=== PATIENT | male | born 1980 | race Hispanic/Latino ===

== ENCOUNTER 2018-06-07 16:48 | Inpatient (IN) | payer SELFPAY ==
[2018-06-07] MEDS ORDERED: MORPHINE 4 MG/ML SYR ONE (17:50)
[2018-06-07] MEDS ORDERED: ONDANSETRON 4 MG/2 ML VIAL ONE (17:50)
[2018-06-07 17:51] LABS: Absolute Lymphocytes (CBC) 2.3 K/uL (0.7-4.9); Absolute Monocytes 0.6 K/uL (0.1-1.3); Absolute Neutrophil 4.5 K/uL (1.8-8.0); Basophils % 0.9 % (0-1.3); Eosinophils % 3.2 % (0-4.4); Lymphocytes % 29.6 % (15.3-44.8); MCH 31.6 pg (27.0-35.0); MPV 8.1 fL (7.6-11.3); Monocytes % 8.1 % (3.3-12.3); RBC Red Blood Cell Count 5.22 M/uL (4.33-5.43)
[2018-06-07 18:11] LABS: ALT/SGPT 40 U/L (12-78); AST/SGOT 33 U/L (15-37); Alkaline Phosphatase 75 U/L (45-117); Amylase Level 46 U/L (25-115); BUN Blood Urea Nitrogen 19 mg/dL (7-18); Bicarbonate 28 mmol/L (21-32); Bilirubin Direct < 0.1 mg/dL (0-0.2); Bilirubin Total 0.4 mg/dL (0.2-1.0); Glucose Level 90 mg/dL (74-106); Lipase 96 U/L (73-393); Potassium 3.9 mmol/L (3.5-5.1); Protein, Total 7.9 g/dL (6.4-8.2); Sodium Level 135 mmol/L (136-145)
--- NOTE | 2018-06-07 18:40 | RAD REPORT ---
EXAM DESCRIPTION: CTAbdomen Pelvis W Contrast - 06/07/2018 6:26 pm CLINICAL HISTORY: Abdominal pain. lower abdominal pain COMPARISON: <Comparisons> TECHNIQUE: Biphasic CT imaging of the abdomen and pelvis was performed with 100 ml non-ionic IV cont rast. All CT scans are performed using dose optimization technique as appropriate and may include automated exposure control or mA/KV adjustment according to patient size. FINDINGS: The lung bases are clear. The liver demonstrates diffuse fatty infiltration. The spleen, pancreas, adrenal glands and kidneys a re within normal limits. No bowel obstruction, free air, free fluid or abscess. Few mildly prominent small bowel loops are pre sent in the central abdomen. Appendectomy. No evidence of significant lymphadenopathy. Chronic bilateral spondylolysis at L5-S1. IMPRESSION: Mildly prominent small bowel loops are seen in the central abdomen. Findings probably ar e related to enteritis. However, as early mechanical small-bowel obstruction can have a similar appea shreya, a follow-up study would be recommended if patient's symptomology persists or progresses. Fatty liver.
[2018-06-07 19:33] LABS: Urine Bacteria <20 /HPF (NONE SEEN); Urine Culture Reflex Order NOT NEEDED; Urine RBC <5 /HPF (NONE SEEN)
[2018-06-07 20:03] LABS: Urine Blood NEGATIVE (NEG); Urine Glucose NEGATIVE (NEG); Urine Protein NEGATIVE (NEG); Urine Specific Gravity 1.015 (1.005-1.030)
--- NOTE | 2018-06-07 20:39 | EDPHYS ---
Physician Documentation [facility] Name: Adrian Huffman Age: 38 yrs Sex: Male : 1980 Arrival Date: 06/07/2018 Time: 16:51 Bed 17 Private MD: None, None ED Physician Michel Alejandre HPI: 06/07 17:10 This 38 yrs old Male presents to ER via Ambulatory with complaints of jmm Abdominal Pain. 17:10 The patient presents with abdominal pain. Onset: The symptoms/episode began/occurred jmm gradually, 1 day(s) ago. The symptoms radiate to. Associated signs and symptoms: Pertinent negatives: diarrhea, vomiting. The symptoms are described as achy, sharp. This is a 38 year old male with no chronic medical conditions that presents to the ED with periumbilical abdominal pain beginning last night. Patient denies vomiting or diarrhea but states he is nauseous. Patient denies fever, recent travel, or recent antibiotics use. Surgical hx of appendicitis. . Historical: - Allergies: 17:06 NKA; iw - Home Meds: 17:06 None [Active]; iw - PMHx: 17:06 None; iw - PSHx: 17:06 Appendectomy; iw - Immunization history:: Adult Immunizations not up to date. - Social history:: Smoking status: Patient/guardian denies using tobacco, Patient uses alcohol, 12packon the weekends . - Ebola Screening: : Patient negative for fever greater than or equal to 101.5 degrees Fahrenheit, and additional compatible Ebola Virus Disease symptoms Patient denies exposure to infectious person Patient denies travel to an Ebola-affected area in the 21 days before illness onset No symptoms or risks identified at this time. ROS: 17:10 Constitutional: Negative for fever, chills, and weight loss, Cardiovascular: Negative jmm for chest pain, palpitations, and edema, Respiratory: Negative for shortness of breath, cough, wheezing, and pleuritic chest pain. 17:10 Abdomen/GI: Positive for abdominal pain, nausea. 17:10 All other systems are negative. Exam: 17:10 Head/Face: atraumatic. Chest/axilla: Normal chest wall appearance and motion. jmm Cardiovascular: Regular rate and rhythm. No edema appreciated Respiratory: Normal respirations, no respiratory distress appreciated 17:10 Constitutional: The patient appears alert, awake, uncomfortable. 17:10 Abdomen/GI: Inspection: Bowel sounds: normal, Palpation: soft, moderate abdominal tenderness, in the left lower quadrant, Hernia: noted in the umbilical area. 17:10 Back: ROM is normal, CVA tenderness, that is moderate. 17:10 Musculoskeletal/extremity: ROM: intact in all extremities. 17:10 Skin: Appearance: Color: normal in color. 17:10 Neuro: Orientation: is normal, Mentation: is normal, Memory: is normal. 17:10 Psych: Behavior/mood is pleasant, cooperative. Vital Signs: 17:07 BP 124 / 96; Pulse 67; Resp 16; Temp 97.6; Pulse Ox 98% on R/A; Weight 81.65 kg; Height iw 5 ft. 6 in. (167.64 cm); Pain 8/10; 18:00 BP 137 / 88; Pulse 61; Resp 16; Pulse Ox 96% on R/A; em 18:42 BP 150 / 99; Pulse 64; Resp 17; Pulse Ox 97% on R/A; em 19:03 BP 132 / 99; Pulse 57; Resp 16 S; Pulse Ox 96% on R/A; jd3 20:07 BP 133 / 98; Pulse 65; Resp 18 S; Pulse Ox 97% on R/A; jd3 21:39 BP 139 / 98; Pulse 65; Resp 17 S; Pulse Ox 97% on R/A; jd3 22:26 BP 141 / 101; Pulse 62; Resp 18 S; Pulse Ox 95% on R/A; jd3 17:07 Body Mass Index 29.05 (81.65 kg, 167.64 cm) iw MDM: 17:10 Patient medically screened. joshua 20:37 Data reviewed: vital signs, nurses notes, lab test result(s), radiologic studies, CT jmm scan. Counseling: I had a detailed discussion with the patient and/or guardian regarding: the historical points, exam findings, and any diagnostic results supporting the discharge/admit diagnosis, lab results, radiology results, the need for outpatient follow up, to return to the emergency department if symptoms worsen or persist or if there are any questions or concerns that arise at home. 21:22 ED course: Patient continues to have pain on reevaluation. Patient tolerates PO jmm challenge but states he feels very nauseous. I discussed the patient with Dr. Bobo whom accepted admission. . 06/07 17:25 Order name: Amylase, Serum; Complete Time: 18:27 [facility] 06/07 17:25 Order name: Basic Metabolic Panel; Complete Time: 18:27 [facility] 06/07 17:25 Order name: CBC with Diff; Complete Time: 18:27 [facility] 06/07 17:25 Order name: Creatinine for Radiology; Complete Time: 18:27 [facility] 06/07 17:25 Order name: Hepatic Function; Complete Time: 18:27 [facility] 06/07 17:25 Order name: Lipase; Complete Time: 18:27 [facility] 06/07 17:25 Order name: Urine Microscopic Only; Complete Time: 19:47 [facility] 06/07 17:25 Order name: IV Saline Lock; Complete Time: 17:44 [facility] 06/07 17:25 Order name: Labs collected and sent; Complete Time: 17:44 [facility] 06/07 17:25 Order name: Urine Dipstick-Ancillary (obtain specimen); Complete Time: 17:53 [facility] 06/07 17:37 Order name: CT Abd/Pelvis - W/Contrast; Complete Time: 18:42 [facility] 06/07 18:44 Order name: Urine Dipstick--Ancillary (enter results); Complete Time: 20:22 [facility] 06/07 19:56 Order name: PO challenge; Complete Time: 20:30 jm Administered Medications: 17:53 Drug: morphine 4 mg Route: IVP; Site: right antecubital; iw 18:45 Follow up: Response: No adverse reaction; Pain is decreased em 17:53 Drug: Zofran 4 mg Route: IVP; Site: right antecubital; iw 18:45 Follow up: Response: No adverse reaction em Disposition: 06/07/18 20:39 Hospitalization ordered by Rosi Bobo for Observation. Preliminary diagnosis is Bowel Obstruction. - Bed requested for Telemetry/MedSurg (observation). - Status is Observation. jd3 - Condition is Stable. - Problem is new. - Symptoms have improved. UTI on Admission? No Addendum: 06/09/2018 14:11 Co-signature as Attending Physician, Michel Alejandre MD I agree with the assessment and c craig plan of care. Signatures: Dispatcher [employer] EDMichel Newman MD MD cha Mickail, Joel, PA PA [facility] Nirmala Washington, RN Rufus Pompa MD MD rn Christian, Chelsea cc Davies, Jonathon, RN RN jd3 [place] Walker LVN Corrections: (The following items were deleted from the chart) 06/07 22:20 20:39 Hospitalization Ordered by Rsoi Bobo MD for Observation. Preliminary cc diagnosis is Bowel Obstruction. Bed requested for Telemetry/MedSurg (observation). Status is Observation. Condition is Stable. Problem is new. Symptoms have improved. UTI on Admission? No. [facility] 22:57 22:20 06/07/2018 20:39 Hospitalization Ordered by Rosi Bobo MD for Observation. jd3 Preliminary diagnosis is Bowel Obstruction. Bed requested for Telemetry/MedSurg (observation). Status is Observation. Condition is Stable. Problem is new. Symptoms have improved. UTI on Admission? No. cc
--- NOTE | 2018-06-07 20:39 | ER ---
Nurse's Notes [facility] Name: Adrian Huffman Age: 38 yrs Sex: Male : 1980 Arrival Date: 06/07/2018 Time: 16:51 Bed 17 Private MD: None, None Diagnosis: Bowel Obstruction Presentation: 06/07 17:04 Presenting complaint: Patient states: LLQ pain since this morning, denies n/v/d, denies iw urinary s/s, last BM was today,only a small amount. Transition of care: patient was not received from another setting of care. Onset of symptoms was June 07, 2018. Risk Assessment: Do you want to hurt yourself or someone else? Patient reports no desire to harm self or others. Initial Sepsis Screen: Does the patient meet any 2 criteria? No. Patient's initial sepsis screen is negative. Does the patient have a suspected source of infection? No. Patient's initial sepsis screen is negative. Care prior to arrival: None. 17:04 Method Of Arrival: Ambulatory iw 17:04 Acuity: KELLY 3 iw Historical: - Allergies: 17:06 NKA; iw - Home Meds: 17:06 None [Active]; iw - PMHx: 17:06 None; iw - PSHx: 17:06 Appendectomy; iw - Immunization history:: Adult Immunizations not up to date. - Social history:: Smoking status: Patient/guardian denies using tobacco, Patient uses alcohol, 12packon the weekends . - Ebola Screening: : Patient negative for fever greater than or equal to 101.5 degrees Fahrenheit, and additional compatible Ebola Virus Disease symptoms Patient denies exposure to infectious person Patient denies travel to an Ebola-affected area in the 21 days before illness onset No symptoms or risks identified at this time. Screenin:18 Abuse screen: Denies threats or abuse. Nutritional screening: No deficits noted. em Tuberculosis screening: No symptoms or risk factors identified. Fall Risk None identified. Assessment: 17:41 General: Appears uncomfortable, Behavior is cooperative, anxious. Pain: Complains of iw pain in umbilical area Pain radiates to left lower quadrant Pain currently is 8 out of 10 on a pain scale. Pain began 1 day ago. Neuro: Level of Consciousness is awake, alert, obeys commands, Oriented to person, place, time, situation, Moves all extremities. Full function. Cardiovascular: Patient's skin is warm and dry. Respiratory: Respiratory effort is even, unlabored, Respiratory pattern is regular, symmetrical. GI: Abdomen is flat, non-distended, Bowel sounds present X 4 quads. Abd is soft X 4 quads Abdomen is tender to palpation in left lower quadrant. GI: Patient currently denies diarrhea, nausea, vomiting. : Denies burning with urination. Derm: Skin is pink, warm \T\ dry. normal. Musculoskeletal: Range of motion: intact in all extremities. 18:52 Reassessment: Patient appears in no apparent distress at this time. Patient and/or em family updated on plan of care and expected duration. Pain level reassessed. Patient is alert, oriented x 3, equal unlabored respirations, skin warm/dry/pink. rates pain 4/10 Patient states feeling better. 19:02 Reassessment: Patient appears in no apparent distress at this time. No changes from jd3 previously documented assessment. Patient and/or family updated on plan of care and expected duration. Pain level reassessed. Patient is alert, oriented x 3, equal unlabored respirations, skin warm/dry/pink. 20:00 Reassessment: Patient given water at this time for PO challenge, denies any nausea. lp1 20:08 Reassessment: Patient appears in no apparent distress at this time. Patient and/or jd3 family updated on plan of care and expected duration. Pain level reassessed. Patient is alert, oriented x 3, equal unlabored respirations, skin warm/dry/pink. Patient states feeling better. 21:39 Reassessment: Patient appears in no apparent distress at this time. No changes from jd3 previously documented assessment. Patient and/or family updated on plan of care and expected duration. Pain level reassessed. Patient is alert, oriented x 3, equal unlabored respirations, skin warm/dry/pink. Patient states feeling better. 22:25 Reassessment: Patient appears in no apparent distress at this time. Patient and/or jd3 family updated on plan of care and expected duration. Pain level reassessed. Patient is alert, oriented x 3, equal unlabored respirations, skin warm/dry/pink. 22:49 Reassessment: Patient appears in no apparent distress at this time. Patient and/or jd3 family updated on plan of care and expected duration. Pain level reassessed. Patient is alert, oriented x 3, equal unlabored respirations, skin warm/dry/pink. pt reported understanding of need for admission. Vital Signs: 17:07 BP 124 / 96; Pulse 67; Resp 16; Temp 97.6; Pulse Ox 98% on R/A; Weight 81.65 kg; Height iw 5 ft. 6 in. (167.64 cm); Pain 8/10; 18:00 BP 137 / 88; Pulse 61; Resp 16; Pulse Ox 96% on R/A; em 18:42 BP 150 / 99; Pulse 64; Resp 17; Pulse Ox 97% on R/A; em 19:03 BP 132 / 99; Pulse 57; Resp 16 S; Pulse Ox 96% on R/A; jd3 20:07 BP 133 / 98; Pulse 65; Resp 18 S; Pulse Ox 97% on R/A; jd3 21:39 BP 139 / 98; Pulse 65; Resp 17 S; Pulse Ox 97% on R/A; jd3 22:26 BP 141 / 101; Pulse 62; Resp 18 S; Pulse Ox 95% on R/A; jd3 17:07 Body Mass Index 29.05 (81.65 kg, 167.64 cm) iw ED Course: 16:51 Patient arrived in ED. mr 16:51 None, None is Private Physician. mr 17:06 Triage completed. iw 17:07 Arm band placed on. iw 17:09 Terell Butt PA is PHCP. jmm 17:09 Michel Alejandre MD is Attending Physician. jmm 17:17 [place] Walker LVN is Primary Nurse. em 17:41 Initial lab(s) drawn, by me, sent to lab. Inserted saline lock: 20 gauge in right iw antecubital area, using aseptic technique. Blood collected. 18:26 CT Abd/Pelvis - W/Contrast In Process Unspecified. EDMS 18:43 Patient has correct armband on for positive identification. Bed in low position. Call em light in reach. Adult w/ patient. 19:29 Primary Nurse role handed off by Dayton Walker LVN ea 20:07 Humberto Sanchez, KEYANA is Primary Nurse. jd3 20:38 Rosi Bobo MD is Hospitalizing Provider. jmm 22:27 No provider procedures requiring assistance completed. Patient admitted, IV remains in jd3 place. Administered Medications: 17:53 Drug: morphine 4 mg Route: IVP; Site: right antecubital; iw 18:45 Follow up: Response: No adverse reaction; Pain is decreased em 17:53 Drug: Zofran 4 mg Route: IVP; Site: right antecubital; iw 18:45 Follow up: Response: No adverse reaction em Outcome: 20:39 Decision to Hospitalize by Provider. arianna 22:47 Admitted to Med/surg accompanied by tech, via wheelchair, room 426, with chart, Report jd3 called to Jeramie RIDLEY 22:47 Condition: stable 22:47 Instructed on the need for admit, Demonstrated understanding of instructions. 22:57 Patient left the ED. jd3 Signatures: Dispatcher [employer] EDMS Terell Butt PA PA jmm Rivera, Maria mr Walker, Dayton, SCREED PERSON SCREED PERSON em Nirmala Washington, KEYANA RN iw Bobbi Agee RN RN lp1 Nadine Mccarthy RN Humberto Ragsdale ea, KEYANA RN jd3 Corrections: (The following items were deleted from the chart) 22:37 22:26 Pulse 62bpm; Resp 18bpm; Spontaneous; Pulse Ox 95% RA; jd3 jd3
[2018-06-07] MEDS ORDERED: ACETAMINOPHEN 500 MG TAB PO PRN (22:15)
[2018-06-07] MEDS ORDERED: MAGNESIUM HYDROXIDE 8% 30 ML PO PRN (22:15)
[2018-06-07] MEDS: NA CHLORIDE 0.9% 1,000 ML IV SCH (23:05)
[2018-06-07 23:13] VITALS: BMI 30.2
[2018-06-07] MEDS: MORPHINE 4 MG/ML SYR IV PRN (23:56)
[2018-06-08] MEDS ORDERED: CEFAZOLIN SODIUM 1 GM/VIAL ONE (00:20)
[2018-06-08] MEDS: CEFAZOLIN/NS 1gm 1 GM/50 ML BAG IVPB SCH ×2 (00:41→06:20)
[2018-06-08] MEDS ORDERED: NA CHLORIDE 0.9% 100 ML ONE (00:42)
[2018-06-08 05:14] LABS: Absolute Lymphocytes (CBC) 2.3 K/uL (0.7-4.9); Absolute Monocytes 0.6 K/uL (0.1-1.3); Absolute Neutrophil 3.8 K/uL (1.8-8.0); Basophils % 0.6 % (0-1.3); Eosinophils % 4.2 % (0-4.4); Hematocrit 46.4 % (39.6-49.0); Lymphocytes % 32.9 % (15.3-44.8); MCH 32.1 pg (27.0-35.0); MPV 8.2 fL (7.6-11.3); Monocytes % 8.7 % (3.3-12.3); RBC Red Blood Cell Count 5.15 M/uL (4.33-5.43)
[2018-06-08 05:29] LABS: ALT/SGPT 37 U/L (12-78); AST/SGOT 25 U/L (15-37); Albumin 3.7 g/dL (3.4-5.0); Alkaline Phosphatase 63 U/L (45-117); BUN Blood Urea Nitrogen 16 mg/dL (7-18); Bicarbonate 31 mmol/L (21-32); Bilirubin Total 0.7 mg/dL (0.2-1.0); Glucose Level 86 mg/dL (74-106); Lipase 74 U/L (73-393); Magnesium 2.1 mg/dL (1.8-2.4); Phosphorus 3.6 mg/dL (2.5-4.9); Protein, Total 7.3 g/dL (6.4-8.2); Sodium Level 139 mmol/L (136-145)
--- NOTE | 2018-06-08 07:11 | P.HP ---
Certification for Inpatient Patient admitted to: Observation With expected LOS: <2 Midnights Patient will require the following post-hospital care: None Practitioner: I am a practitioner with admitting privileges, knowledge of patient current condition, hospital course, and medical plan of care. Services: Services provided to patient in accordance with Admission requirements found in Title 42 Section 412.3 of the Code of Federal Regulations Patient History Date of Service: 06/07/18 Reason for admission: Small-bowel obstruction History of Present Illness: Patient is a 38-year-old gentleman came into the hospital with abdominal pain. Patient was having nausea and significant abdominal discomfort. Patient's pain was mainly around the umbilicus. In the emergency room, patient's pain was 10/ 10. Patient had a CT scan which revealed possible enteritis vs. early mechanical small-bowel obstruction. On physical exam, patient was found to have significant abdominal discomfort. It was felt the patient may have a small -bowel obstruction. Patient was admitted to the hospital for further workup. Will get General surgery evaluation. If his symptoms improved then will go ahead and start him on a clear liquid diet. Allergies No Known Allergies Allergy (Verified 06/07/18 23:42) Home Medications: NK [No Home Meds] 06/07/18 - Past Medical/Surgical History Has patient received pneumonia vaccine in the past: No Diabetic: No Past Medical History: Patient denies medical history -: Appendectomy - Family History Father Family History: Reviewed- Non-Contributory - Social History Smoking Status: Never smoker Alcohol use: Yes CD- Drugs: No Place of Residence: Home Review of Systems 10-point ROS is otherwise unremarkable Physical Examination - Vital Signs Temperature: 97.8 F Blood Pressure: 140/68 Pulse: 60 Respirations: 20 Pulse Ox (%): 97 - Physical Exam General: Alert, In no apparent distress, Oriented x3 HEENT: Atraumatic, PERRLA, Mucous membr. moist/pink, EOMI, Sclerae nonicteric Neck: Supple, 2+ carotid pulse no bruit, No LAD, Without JVD or thyroid abnormality Respiratory: Clear to auscultation bilaterally, Normal air movement Cardiovascular: Regular rate/rhythm, Normal S1 S2, No murmurs Gastrointestinal: Soft and benign, Non-distended, Absent bowel sounds, Tenderness (Umbilical region) Musculoskeletal: No clubbing, No swelling, No tenderness Integumentary: No rashes Neurological: Normal gait, Normal speech, Normal strength at 5/5 x4 extr, Normal tone, Sensation intact, Cranial nerves 3-12 intact, Normal affect Lymphatics: No axilla or inguinal lymphadenopathy - Studies Laboratory Data (last 24 hrs) 06/07/18 17:30: Creatinine 0.80 06/07/18 17:30: WBC 7.7, Hgb 16.5, Hct 47.0, Plt Count 287 06/07/18 17:30: Sodium 135 L, Potassium 3.9, BUN 19 H, Creatinine 0.90, Glucose 90, Total Bilirubin 0.4, AST 33, ALT 40, Alkaline Phosphatase 75, Amylase 46, Lipase 96 Assessment & Plan - Problems (Diagnosis) (1) Enteritis Current Visit: Yes Status: Acute (2) Small bowel obstruction Current Visit: Yes Status: Acute (3) Intractable nausea and vomiting Current Visit: Yes Status: Acute - Plan Plan: 1. NPO 2. IV hydration 3. Pain control 4. Surgery consultation 5. If patient has nausea vomiting will place an NG tube 6. Monitor abdominal discomfort and distention 7. If flatus then may start him on clear liquid diet 8. Monitor electrolytes 9. GI and DVT prophylaxis Discharge Plan: Home Plan to discharge in: 48 Hours - Advance Directives Does patient have a Living Will: No Does patient have a Durable POA for Healthcare: No - Code Status/Comfort Care Code Status Assessed: Yes Code Status: Full Code Critical Care: No Time Spent Managing PTS Care (In Minutes): 50
[2018-06-08] MEDS: MORPHINE 4 MG/ML SYR IV PRN ×2 (08:50→17:04)
[2018-06-08] MEDS: NA CHLORIDE 0.9% 1,000 ML IV SCH ×2 (08:50→17:05)
[2018-06-08 09:26] VITALS: O2SAT 97
[2018-06-08] MEDS: CEFAZOLIN/SWI 1gm 1 GM/10 ML SYR IV SCH ×2 (11:50→17:04)
--- NOTE | 2018-06-08 12:02 | P.PN ---
Subjective Date of Service: 06/08/18 Chief Complaint: Small-bowel obstruction Pt seen and examined at bedside with RN. Patient denies having Nausea and vomiting. Still c/o of having abd pain. No flaulence or BM today. No other complains to offer. Review of Systems General: As per HPI Physical Examination - Vital Signs Temperature: 98.1 F Blood Pressure: 117/67 Pulse: 54 Respirations: 20 Pulse Ox (%): 96 - Physical Exam General: Alert, In no apparent distress HEENT: Atraumatic, PERRLA, EOMI Neck: Supple, JVD not distended Respiratory: Clear to auscultation bilaterally, Normal air movement Cardiovascular: Regular rate/rhythm, Normal S1 S2 Gastrointestinal: Normal bowel sounds, Tenderness (Tenderness to touch on the LLQ and LUQ) Musculoskeletal: No tenderness Integumentary: No rashes Neurological: Normal speech, Normal tone, Normal affect Lymphatics: No axilla or inguinal lymphadenopathy - Studies Laboratory Data (last 24 hrs) 06/07/18 17:30: Creatinine 0.80 06/07/18 17:30: WBC 7.7, Hgb 16.5, Hct 47.0, Plt Count 287 06/07/18 17:30: Sodium 135 L, Potassium 3.9, BUN 19 H, Creatinine 0.90, Glucose 90, Total Bilirubin 0.4, AST 33, ALT 40, Alkaline Phosphatase 75, Amylase 46, Lipase 96 Medications List Reviewed: Yes Assessment & Plan - Problems (Diagnosis) (1) Intractable nausea and vomiting Current Visit: Yes Status: Resolved Plan: Now resolved. -IV fluids and zofran PRN for now Qualifiers: Vomiting type: cyclical vomiting Qualified Code(s): G43.A1 - Cyclical vomiting, intractable (2) Enteritis Current Visit: Yes Status: Acute Plan: Possible Enteritis. -Pt with LLQ and LUQ pain -On Cefepime Will continue -Awaiting surgery Reccs -NPO and IV fluids (3) Small bowel obstruction Current Visit: Yes Status: Acute Plan: Possible early SBO -Awaiting Sugery Reccs -NPO and IV fluids Discharge Plan: Home Plan to discharge in: 48 Hours - Code Status/Comfort Care Code Status Assessed: Yes Critical Care: No
[2018-06-08] MEDS ORDERED: ENOXAPARIN 30 MG/0.3 ML SQ SCH (17:00)
[2018-06-08] MEDS: ENOXAPARIN 30 MG/0.3 ML SQ SCH (17:04)
--- NOTE | 2018-06-08 17:56 | P.CNS ---
Date of Consult: 06/08/18 PC: This patient presents emergency room with severe abdominal pain for diagnosis and treatment. HPC: Patient and been feeling on well for the last 48 hr. Last bili requires heating was some chicken at home. Since that time he has had severe cramping lower abdominal pain. PMH: Negative PSHx: No prior surgeries SOC: No known allergies SYS REVIEW: No cough, wheeze, shortness of breath. No chest pain or palpitations. O/E awake alert vital signs are stable HEENT: Not jaundice Chest: Air movement equal bilaterally ABD: Soft nontender has a small non incarcerated umbilical hernia LOCO: Intact DATA: Nonspecific findings IMPRESSION: Abdominal pain PLAN: This visually was have to do eat this evening. Will make him NPO at midnight. We will reassess in the morning. I do not feel he is going to need surgery.
[2018-06-09] MEDS: CEFAZOLIN/SWI 1gm 1 GM/10 ML SYR IV SCH ×4 (00:44→17:54)
[2018-06-09] MEDS: NA CHLORIDE 0.9% 1,000 ML IV SCH ×2 (03:06→14:34)
[2018-06-09] MEDS: ONDANSETRON 4 MG/2 ML VIAL IV PRN (10:44)
[2018-06-09] MEDS: MORPHINE 4 MG/ML SYR IV PRN ×2 (10:44→17:53)
--- NOTE | 2018-06-09 15:19 | P.PN ---
Subjective Date of Service: 06/09/18 Chief Complaint: Small-bowel obstruction Pt seen and examined at bedside with RN. Patient denies having Nausea and vomiting. Still c/o of having abd pain. No flaulence or BM today. Had his diet advance to Reg but Started having pain so was switched back to CLD Review of Systems General: As per HPI Physical Examination - Vital Signs Temperature: 98.6 F Blood Pressure: 122/80 Pulse: 64 Respirations: 18 Pulse Ox (%): 97 - Physical Exam General: Alert, In no apparent distress HEENT: Atraumatic, PERRLA, EOMI Neck: Supple, JVD not distended Respiratory: Clear to auscultation bilaterally, Normal air movement Cardiovascular: Regular rate/rhythm, Normal S1 S2 Gastrointestinal: Normal bowel sounds, No tenderness Musculoskeletal: No tenderness Integumentary: No rashes Neurological: Normal speech, Normal tone, Normal affect Lymphatics: No axilla or inguinal lymphadenopathy - Studies Medications List Reviewed: Yes Assessment & Plan - Problems (Diagnosis) (1) Intractable nausea and vomiting Onset Date: 06/09/18 Current Visit: Yes Status: Resolved Plan: Now resolved. -IV fluids and zofran PRN for now Qualifiers: Vomiting type: cyclical vomiting Qualified Code(s): G43.A1 - Cyclical vomiting, intractable (2) Enteritis Onset Date: 06/09/18 Current Visit: Yes Status: Acute Plan: Possible Enteritis. -Pt with LLQ and LUQ pain. -On Cefepime Will continue -Unable to Tolerate diet at this time due to abdominal Pain -FLD and IV fluids (3) Small bowel obstruction Onset Date: 06/09/18 Current Visit: Yes Status: Ruled-out Discharge Plan: Home Plan to discharge in: 48 Hours - Code Status/Comfort Care Code Status Assessed: Yes Critical Care: No
[2018-06-09] MEDS: ENOXAPARIN 30 MG/0.3 ML SQ SCH (17:54)
[2018-06-10] MEDS: CEFAZOLIN/SWI 1gm 1 GM/10 ML SYR IV SCH ×3 (00:06→12:30)
[2018-06-10] MEDS: NA CHLORIDE 0.9% 1,000 ML IV SCH ×3 (00:06→20:03)
[2018-06-10 05:25] LABS: BUN Blood Urea Nitrogen 11 mg/dL (7-18); Bicarbonate 31 mmol/L (21-32); Glucose Level 84 mg/dL (74-106); Magnesium 2.1 mg/dL (1.8-2.4); Potassium 3.8 mmol/L (3.5-5.1); Sodium Level 140 mmol/L (136-145)
[2018-06-10] MEDS ORDERED: POTASSIUM CL SA 10 MEQ TAB PO ONE (05:57)
[2018-06-10] MEDS: MORPHINE 4 MG/ML SYR IV PRN ×3 (08:23→20:06)
[2018-06-10] MEDS: ENOXAPARIN 30 MG/0.3 ML SQ SCH (17:00)
[2018-06-10] MEDS: CEFEPIME/SWI 1gm 1 GM/10 ML SYR IV SCH (20:02)
[2018-06-10] MEDS: ONDANSETRON 4 MG/2 ML VIAL IV PRN (20:13)
--- NOTE | 2018-06-10 22:24 | PN ---
Date of Progress Note: 06/10/2018 Subjective: The patient is seen and examined. Chart reviewed and case discussed with RN. The patie nt states he is still having some abdominal pain, not really able to tolerate his diet today. Review of Systems: Negative except as above. Medications: Reviewed. Physical Examination: Vital Signs: Temperature 98.2, heart rate 69, blood pressure 129/83, respirations 17, O2 saturation 95% on room air. General: Awake, alert, oriented x3, in some mild distress, ill-appearing male. Obese, BMI 30. CV: S1, S2. No murmurs. Regular rate and rhythm. Peripheral pulses present. Respiratory: Moving air well bilaterally. No wheezing. Gastrointestinal: Abdomen is soft. Mild tenderness to palpation. No guarding or rigidity. Bowel s ounds hypoactive. Extremities: No clubbing, cyanosis, or edema. Neurologic: Nonfocal. Laboratory Data: Sodium 140, potassium 3.8, chloride 105, CO2 31, BUN 11, creatinine 0.9, glucose 84 , calcium 8.6, magnesium 2.1. CBC is pending. Assessment And Plan: A 38-year-old male with; 1.Intractable nausea, vomiting, improving. 2.Enteritis. We will continue IV antibiotics. The patient is unable to tolerate his liquid diet. May need to back off. We will consult GI. 3.Small bowel obstruction. Dr. Browning is on the keys. The patient is passing some gas, however, n o bowel movement. Plan; we will reassess if condition does not improve. We will obtain acute abdominal series in a.m. /ANTONIA Voice ID: [id number] Report ID: [id number]
[2018-06-11 04:11] LABS: Absolute Lymphocytes (CBC) 2.3 K/uL (0.7-4.9); Absolute Monocytes 0.6 K/uL (0.1-1.3); Absolute Neutrophil 3.3 K/uL (1.8-8.0); Basophils % 0.9 % (0-1.3); Eosinophils % 4.5 % (0-4.4); Hematocrit 47.3 % (39.6-49.0); Lymphocytes % 34.7 % (15.3-44.8); MCH 31.4 pg (27.0-35.0); MCV 90.5 fL (80-100); MPV 7.8 fL (7.6-11.3); Monocytes % 8.9 % (3.3-12.3); RBC Red Blood Cell Count 5.22 M/uL (4.33-5.43)
[2018-06-11 04:35] LABS: BUN Blood Urea Nitrogen 10 mg/dL (7-18); Bicarbonate 30 mmol/L (21-32); Glucose Level 87 mg/dL (74-106); Potassium 3.9 mmol/L (3.5-5.1); Sodium Level 139 mmol/L (136-145)
[2018-06-11] MEDS ORDERED: POTASSIUM CL SA 10 MEQ TAB PO ONE (04:51)
[2018-06-11] MEDS: NA CHLORIDE 0.9% 1,000 ML IV SCH ×2 (05:29→17:00)
[2018-06-11] MEDS: CEFEPIME/SWI 1gm 1 GM/10 ML SYR IV SCH ×2 (08:53→20:17)
--- NOTE | 2018-06-11 14:11 | RAD REPORT ---
EXAM DESCRIPTION: RAD - Abdomen Acute Series - 06/11/2018 2:01 pm CLINICAL HISTORY: abd pain, SBO COMPARISON: Chest Single View dated 01/13/2017; Abdomen Pelvis W Contrast dated 06/07/2018 FINDINGS: Frontal view the chest shows clear lungs. No subdiaphragmatic free air. The heart is nicole l in size. No bowel obstruction is seen. Moderate fecal material seen in the colon. No pathologic calcifications . No worrisome bone finding. IMPRESSION: Negative study.
--- NOTE | 2018-06-11 15:10 | DS ---
Date of Discharge: 06/11/2018 Consultants: Dr. Benson with GI, Dr. Browning with General Surgery. Admitting Diagnoses: 1. Enteritis. 2. Small bowel obstruction. 3. Intractable nausea, vomiting. Discharge Diagnoses: 1. Intractable nausea, vomiting, resolved. 2. Enteritis, on antibiotics, improving. 3. Small bowel obstruction, resolved. 4. Obesity, BMI 32. Hospital Course: The patient is a 38-year-old male, who came into the hospital with abdominal pain, having significant amount of nausea, vomiting, abdominal discomfort. CT scan was done, which showed possible enteritis versus early mechanical small bowel obstruction. The patient was started on IV fluids, kept n.p.o., started on IV antibiotics. The patient's condition did improve. He responded well to IV fluids and IV antibiotics. His white count remained normal. His electrolytes were stable. He was seen by general surgeon, Dr. Browning. No surgical recommendations, no need for surgery. The patient was then started on clear liquids; however, did have some recurrence of nausea and vomiting. Therefore, his diet was pushed back; however, subsequently able to tolerate full liquid diet, had passing of flatus and bowel movement. The patient was also seen by JARRETT, Dr. Benson. The patient's diet was advanced to GI soft diet, which he was able to tolerate. His nausea, vomiting resolved. He did report 1 episode of blood in the sputum when he was taking the medications and had to spit up, significance is likely not much at all. His hemoglobin has remained stable at 16.5. His acute abdominal series done on June 11 did not show any small bowel obstruction or air-fluid levels. The patient was ambulating well. Activity: As tolerated. Medications: As per medication reconciliation list. Diet: Regular. Followup: Follow up with primary care physician in 2-3 days. Follow up with JARRETT , Dr. Benson in 1-2 weeks. Follow up with Dr. Browning, surgeon in 2 weeks. Return to ER for worsening condition. Finish up course of antibiotics. Physical Examination: General: Awake, alert, oriented, no acute distress. CV: S1, S2. No murmurs. Respiratory: Moving air well bilaterally. Abdomen: Soft, nontender, nondistended. Positive bowel sounds. Extremities: No clubbing, cyanosis, edema. Neurologic: Nonfocal. Total time spent discharging the patient was 41 minutes. ADDENDUM: Dr. Benson with GI recommends trial of steroids for possible Crohn's. Will cancel discharge and start IV steroids. /ANTONIA Voice ID: [id number] Report ID: [id number] MTDD
[2018-06-11] MEDS: HYDROCORTISONE SUC 100 MG INJ IV SCH ×2 (16:47→20:17)
[2018-06-11] MEDS: ENOXAPARIN 30 MG/0.3 ML SQ SCH (16:50)
[2018-06-11] MEDS: HYDROCODONE/APAP 7.5/325 MG TAB PO PRN (16:54)
[2018-06-12] MEDS: NA CHLORIDE 0.9% 1,000 ML IV SCH (03:40)
[2018-06-12] MEDS: HYDROCODONE/APAP 7.5/325 MG TAB PO PRN (03:40)
[2018-06-12 04:11] LABS: Absolute Lymphocytes (CBC) 1.3 K/uL (0.7-4.9); Absolute Monocytes 0.3 K/uL (0.1-1.3); Absolute Neutrophil 6.5 K/uL (1.8-8.0); Basophils % 1.8 % (0-1.3); Eosinophils % 0.1 % (0-4.4); Hematocrit 47.9 % (39.6-49.0); Lymphocytes % 15.6 % (15.3-44.8); MCH 31.7 pg (27.0-35.0); MPV 7.9 fL (7.6-11.3); Monocytes % 3.7 % (3.3-12.3); RBC Red Blood Cell Count 5.26 M/uL (4.33-5.43)
[2018-06-12 04:27] LABS: BUN Blood Urea Nitrogen 12 mg/dL (7-18); Bicarbonate 27 mmol/L (21-32); Glucose Level 111 mg/dL (74-106); Sodium Level 138 mmol/L (136-145)
[2018-06-12] MEDS: CEFEPIME/SWI 1gm 1 GM/10 ML SYR IV SCH (09:12)
[2018-06-12] MEDS: HYDROCORTISONE SUC 100 MG INJ IV SCH (09:13)
--- NOTE | 2018-06-12 13:07 | P.DS ---
Admission Date: 06/09/18 Discharge Date: 06/12/18 Primary Care Provider: none Disposition: ROUTINE DISCHARGE Discharge Condition: GOOD Reason for Admission: Small-bowel obstruction Consultations: GI-Dr. Benson Surgery-Dr. Browning Procedures: CT scan: FINDINGS: The lung bases are clear. The liver demonstrates diffuse fatty infiltration. The spleen, pancreas, adrenal glands and kidneys are within normal limits. No bowel obstruction, free air, free fluid or abscess. Few mildly prominent small bowel loops are present in the central abdomen. Appendectomy. No evidence of significant lymphadenopathy. Chronic bilateral spondylolysis at L5-S1. IMPRESSION: Mildly prominent small bowel loops are seen in the central abdomen. Findings probably are related to enteritis. However, as early mechanical small-bowel obstruction can have a similar appearance, a follow-up study would be recommended if patient's symptomology persists or progresses. Fatty liver. Small bowel series: FINDINGS: Frontal view the chest shows clear lungs. No subdiaphragmatic free air. The heart is normal in size. No bowel obstruction is seen. Moderate fecal material seen in the colon. No pathologic calcifications. No worrisome bone finding. IMPRESSION: Negative study. - Problems (1) Fatty liver Current Visit: Yes Status: Chronic (2) Umbilical hernia Current Visit: Yes Status: Chronic Qualifiers: Obstruction and gangrene presence: without obstruction or gangrene Qualified Code(s): K42.9 - Umbilical hernia without obstruction or gangrene (3) Enteritis Onset Date: 06/09/18 Current Visit: Yes Status: Acute (4) Small bowel obstruction Onset Date: 06/09/18 Current Visit: Yes Status: Ruled-out (5) Intractable nausea and vomiting Onset Date: 06/09/18 Current Visit: Yes Status: Resolved Qualifiers: Vomiting type: cyclical vomiting Qualified Code(s): G43.A1 - Cyclical vomiting, intractable Brief History of Present Illness: 38-year-old male presented emergency room with abdominal pain. Patient was evaluated the emergency room. CT scan showed mild prominent small bowel loops in the central abdomen. This was likely related to enteritis. Less likely early small bowel obstruction. The patient was admitted for further evaluation. Hospital Course: Patient presented with abdominal pain. Enteritis verses early small-bowel obstruction was suspected. Patient evaluated by surgery. No surgical intervention was needed or required. Patient improved slowly. Patient was also seen by GI. Patient continued with IV antibiotic therapy. Prior discharge patient was placed on IV steroids as the patient had a recent colonoscopy showing some ulcerations. There is some suspicion of Crohn's colitis. Patient responded well to steroid treatment. Patient was able tolerate his diet. At discharge patient will continue with Cipro 500 mg 1 pill twice daily and Flagyl 500 mg 1 pill 3 times a day for 7 days. Patient will continue with prednisone 20 mg 1 pill once daily for 7 days. Recommendation is for the patient follow up with GI to further monitor and address. Patient may require repeat colonoscopy in 4-6 weeks to further evaluate. Patient will continue with a soft diet and advance as tolerated. Patient has a small umbilical hernia. No obstruction identified. No heavy lifting, pushing or pulling greater than 10 lb is recommended. Patient may follow up with surgery as an outpatient to further address. CT also identified fatty liver. This can be further addressed and evaluated by his PCP or GI. Vital Signs/Physical Exam: Temp Pulse Resp BP Pulse Ox 97.3 F 59 18 132/86 97 06/12/18 08:00 06/12/18 08:00 06/12/18 08:00 06/12/18 08:00 06/12/18 08:00 General: Alert, In no apparent distress, Oriented x3, Cooperative HEENT: Atraumatic, Mucous membr. moist/pink Neck: Supple Respiratory: Clear to auscultation bilaterally, Normal air movement Cardiovascular: Normal pulses, Regular rate/rhythm Gastrointestinal: Normal bowel sounds, Soft and benign, Non-distended, No tenderness, No masses, No rebound, No guarding, Other (Small umbilical hernia no pain identified) Musculoskeletal: No erythema, No tenderness, No warmth Integumentary: No tenderness/swelling, No erythema, No warmth, No cyanosis Neurological: Normal speech, Normal strength at 5/5 x4 extr, Normal tone, Normal affect Laboratory Data at Discharge: WBC 8.3 K/uL (4.3-10.9) D 06/12/18 03:39 Hgb 16.7 g/dL (13.6-17.9) 06/12/18 03:39 Hct 47.9 % (39.6-49.0) 06/12/18 03:39 Plt Count 291 K/uL (152-406) 06/12/18 03:39 Sodium 138 mmol/L (136-145) 06/12/18 03:39 Potassium 4.0 mmol/L (3.5-5.1) 06/12/18 03:39 BUN 12 mg/dL (7-18) 06/12/18 03:39 Creatinine 0.80 mg/dL (0.55-1.3) 06/12/18 03:39 Glucose 111 mg/dL (74-106) H 06/12/18 03:39 Phosphorus 3.6 mg/dL (2.5-4.9) 06/08/18 04:20 Magnesium 2.1 mg/dL (1.8-2.4) 06/10/18 04:40 Total Bilirubin 0.7 mg/dL (0.2-1.0) 06/08/18 04:20 AST 25 U/L (15-37) 06/08/18 04:20 ALT 37 U/L (12-78) 06/08/18 04:20 Alkaline Phosphatase 63 U/L (45-117) 06/08/18 04:20 Amylase 46 U/L (25-115) 06/07/18 17:30 Lipase 74 U/L (73-393) 06/08/18 04:20 Home Medications: Ciprofloxacin HCl [Cipro 500 MG Tablet] 500 mg PO BID #14 tab 06/12/18 metroNIDAZOLE [Flagyl] 500 mg PO Q8H #21 tablet 06/12/18 predniSONE [Deltasone*] 10 mg PO DAILY #7 tab 06/12/18 New Medications: Ciprofloxacin HCl [Cipro 500 MG Tablet] 500 mg PO BID #14 tab metroNIDAZOLE [Flagyl] 500 mg PO Q8H #21 tablet predniSONE [Deltasone*] 10 mg PO DAILY #7 tab Patient Discharge Instructions: 1. Patient will need establish care with a PCP to continue and follow up this hospitalization. 2. Patient presented with abdominal pain. Patient evaluated by surgery and GI. No surgical intervention was needed or required. Patient improved slowly. There is some suspicion of Crohn's colitis as patient had recent colonoscopy. At discharge patient will continue with Cipro 500 mg 1 pill twice daily and Flagyl 500 mg 1 pill 3 times a day for 7 days. Patient will continue with prednisone 20 mg 1 pill once daily for 7 days. Recommendation is for the patient follow up with GI to further monitor and address. Patient may require repeat colonoscopy in 4-6 weeks to further evaluate. Patient will continue with a soft diet and advance as tolerated. 3. Patient has a small umbilical hernia. No obstruction identified. No heavy lifting, pushing or pulling greater than 10 lb is recommended. Patient may follow up with surgery as an outpatient to further address. 4. Patient found to have fatty liver. This can be further evaluated and monitored by his PCP and GI. Diet: Soft then advance as tolerated Activity: No lifting more than 10 lbs Followup: Dayron Browning MD [ACTIVE - CAN ADMIT] - Time spent managing pt's care (in minutes): 55
[2018-06-12 15:47] VITALS: BP 125/81; TEMP 98.6
--- NOTE | 2018-06-16 10:00 | CON ---
Date of Consultation: 06/11/2018 A 38-year-old male. Reason For Consultation: Abdominal pain, abnormal CT scan. History Of Present Illness: is a 38-year-old male who is in second admission with abd ominal pain. CT scan shows this time enteritis pattern. Last time he had the same episode. Approxi mately 2 years ago he underwent an appendectomy for abdominal pain, however, according to him, that t he pain was completely different than the current pain. He had a colonoscopy that was negative. The exact timing is not known to him. He denies any hematemesis, melena, or hematochezia. Has nausea a nd vomiting. Had normal bowel movement and is passing gas at this time, however, abdominal pain is s till significant. Past Medical History: Generally healthy other than above. Past Surgical History: As elaborated above. Family History: Denies any gastrointestinal malignancies in the family. Social History: Occasional alcohol in the form of beers. Psychiatric History: None. Allergies: REVIEWED IN THE CHART. Medications: Reviewed in the chart. Review of Systems: General: No fever, chills. No weight loss, weight gain. Appetite is poor. GI: As elaborated above. Hepatologic: Denies any history of jaundice, hepatitis, or any other issues. Musculoskeletal: No arthralgia, myalgia. No limitation. Neuropsychiatric: None. Neuroendocrine: None. Genitourinary: None. Lymphoreticular: None. Musculoskeletal: none. Physical Examination: General: Young male, no acute distress noted. Hemodynamic and respiratory profile within normal ran ge. HEENT: Atraumatic, normocephalic. Oropharynx is clear. No temporal wasting. Facial wasting. Neck: Supple. No lymphadenopathy. Trachea central in position. Chest: Clear to auscultation and percussion. Cardiovascular: Normal S1, S2. No S3, no S4. Abdomen: Soft, however, extremely tender in a diffuse manner. Bowel sounds are present. Normoactiv e. No hepatomegaly, no splenomegaly. No rebound tenderness. Extremities: Upper and lower extremities normal AND symmetrical. Dermatologic: Normal. Neurologic: Alert and oriented x3. Intact memory, mentation, and judgment. Can move all parts of e xtremities without any other problem. Diagnostic Data: Reviewed and analyzed. White cell count is normal. Hemoglobin and hematocrit show s initial hemoconcentration. CT scan discussed above. alkaline phosphatase is normal. Amylase and lipase are normal. Impression, Plan, Recommendation: Mr. is a young gentleman with multiple episodes of abdo brian pain and finding of enteritis. Main suspicion in this case will be Crohn's disease versus At this time, he is moving bowel and is passing gas and therefore we should his advance his diet. Ho sean the best approach in this case will be to give him a trial of IV steroid. If he responds to it , Crohn's disease will be strong suspicious. If it does not respond at least no harm if done in the immediate period and surgical exploration has to be considered. If he does well on above, he will need workup including possible capsule endoscopy. At this time, he is showing no acute evidence of obstruction, therefore diet could be advanced and ambulation could b e started. I have discussed with him and his regarding the indications, contraindications, possible complic ations, alternatives of all of the above. They have good understanding. In the past also has colonoscopy has been reported to be negative. BOOGIE/ANTONIA Voice ID: [id number] Report ID: [id number]
== END 2018-06-12 16:31 | disposition home or self-care (01) | DRG 392 ==
LOC: ER 16:48 → ERHOLD 20:40 → 4TH 22:48 → OBSVTOIN 06-09 14:57
PROVIDERS: ADMIT Hospitalist; ATTEND Family Medicine
DX: K52.9 Noninfective gastroenteritis and colitis, unspecified (principal); K76.0 Fatty (change of) liver, not elsewhere classified; K42.9 Umbilical hernia without obstruction or gangrene; G43.A1 Cyclical vomiting, in migraine, intractable
CPT/HCPCS: 36415; 74022; 74177; 80048; 80053; 80076; 81003; 81015; 82150; 83690; 83735; 84100; 85025; 96374; 96375; 99285; G0378; J0690; J0692; J1650; J1720; J2405; J7030; Q9967

== ENCOUNTER 2019-12-24 22:08 | Emergency (ER) | payer SELFPAY ==
[2019-12-24] MEDS ORDERED: ONDANSETRON 4 MG/2 ML VIAL ONE (22:56)
[2019-12-24] MEDS ORDERED: MORPHINE 4 MG/ML SYR ONE (22:56)
[2019-12-24] MEDS ORDERED: NA CHLORIDE 0.9% 1,000 ML ONE (23:03)
[2019-12-24 23:09] LABS: Absolute Lymphocytes (CBC) 3.1 K/uL (0.7-4.9); Basophils % 0.8 % (0-1.3); Hematocrit 48.3 % (39.6-49.0); Lymphocytes % 35.2 % (15.3-44.8); MPV 8.5 fL (7.6-11.3)
[2019-12-24 23:25] LABS: ALT/SGPT 37 U/L (12-78); AST/SGOT 27 U/L (15-37); Albumin 3.8 g/dL (3.4-5.0); Alkaline Phosphatase 93 U/L (45-117); BUN Blood Urea Nitrogen 22 mg/dL (7-18); Bicarbonate 24 mmol/L (21-32); Bilirubin Direct < 0.1 mg/dL (0-0.2); Bilirubin Total 0.1 mg/dL (0.2-1.0); Glucose Level 95 mg/dL (74-106); Lipase 100 U/L (73-393); Potassium 3.9 mmol/L (3.5-5.1); Protein, Total 7.2 g/dL (6.4-8.2); Sodium Level 138 mmol/L (136-145)
--- NOTE | 2019-12-25 00:52 | EDPHYS ---
Physician Documentation [facility] Name: Sarkis Huffman Age: 39 yrs Sex: Male : 1980 Arrival Date: 12/24/2019 Time: 22:10 Bed 15 Private MD: ED Physician Mannie Chacon HPI: 12/24 23:06 This 39 yrs old Male presents to ER via Ambulatory with complaints of Leg Pain snw Going Up. 23:06 The patient presents with abdominal pain in the left lower quadrant. Onset: The snw symptoms/episode began/occurred suddenly, 3 day(s) ago, and became worse and became persistent. The symptoms do not radiate. Associated signs and symptoms: Pertinent positives: nausea, Pertinent negatives: diarrhea, dysuria, fever. The symptoms are described as stabbing. Severity of pain: At its worst the pain was incapacitating in the emergency department the pain is unchanged. The patient has not experienced similar symptoms in the past. The patient has not recently seen a physician. Historical: - Allergies: 22:32 No Known Allergies; rv - Home Meds: 22:32 None [Active]; rv - PMHx: 22:32 Ulcers; rv - PSHx: 22:32 Appendectomy; rv - Immunization history:: Adult Immunizations unknown. - Coronavirus screen:: The patient has NOT traveled to [place] in the past 14 days. Proceed with normal triage process as indicated. The patient has NOT had contact with known/suspected case of Coronavirus? Proceed with normal triage procedures. - Social history:: Smoking status: Patient denies any tobacco usage or history of. - Ebola Screening: : No symptoms or risks identified at this time. ROS: 23:05 Constitutional: Negative for fever, chills, and weight loss, Eyes: Negative for injury, snw pain, redness, and discharge, ENT: Negative for injury, pain, and discharge, Neck: Negative for injury, pain, and swelling, Cardiovascular: Negative for chest pain, palpitations, and edema, Respiratory: Negative for shortness of breath, cough, wheezing, and pleuritic chest pain, Abdomen/GI: Positive for severe left lower quad abdominal pain, nausea, vomiting, no diarrhea or constipation, Back: Negative for injury and pain, : Negative for injury, bleeding, discharge, and swelling, MS/Extremity: Negative for injury and deformity, Skin: Negative for injury, rash, and discoloration, Neuro: Negative for headache, weakness, numbness, tingling, and seizure, Psych: Negative for depression, anxiety, suicide ideation, homicidal ideation, and hallucinations. Exam: 23:04 Head/Face: Normocephalic, atraumatic. Eyes: Pupils equal round and reactive to light, snw extra-ocular motions intact. Lids and lashes normal. Conjunctiva and sclera are non-icteric and not injected. Cornea within normal limits. Periorbital areas with no swelling, redness, or edema. ENT: Nares patent. No nasal discharge, no septal abnormalities noted. Tympanic membranes are normal and external auditory canals are clear. Oropharynx with no redness, swelling, or masses, exudates, or evidence of obstruction, uvula midline. Mucous membranes moist. Neck: Trachea midline, no thyromegaly or masses palpated, and no cervical lymphadenopathy. Supple, full range of motion without nuchal rigidity, or vertebral point tenderness. No Meningismus. Chest/axilla: Normal chest wall appearance and motion. Nontender with no deformity. No lesions are appreciated. Cardiovascular: Regular rate and rhythm with a normal S1 and S2. No gallops, murmurs, or rubs. Normal PMI, no JVD. No pulse deficits. Respiratory: Lungs have equal breath sounds bilaterally, clear to auscultation and percussion. No rales, rhonchi or wheezes noted. No increased work of breathing, no retractions or nasal flaring. Back: No spinal tenderness. No costovertebral tenderness. Full range of motion. Skin: Warm, dry with normal turgor. Normal color with no rashes, no lesions, and no evidence of cellulitis. MS/ Extremity: Pulses equal, no cyanosis. Neurovascular intact. Full, normal range of motion. Neuro: Awake and alert, GCS 15, oriented to person, place, time, and situation. Cranial nerves II-XII grossly intact. Motor strength 5/5 in all extremities. Sensory grossly intact. Cerebellar exam normal. Normal gait. Psych: Awake, alert, with orientation to person, place and time. Behavior, mood, and affect are within normal limits. 23:04 Constitutional: The patient appears alert, in obvious distress, moderately distressed. 23:04 Abdomen/GI: Inspection: abdomen appears normal, Bowel sounds: diminished, Palpation: moderate abdominal tenderness, severe abdominal tenderness, in the left lower quadrant. Vital Signs: 22:27 BP 141 / 103; Pulse 78; Resp 17; Temp 98.2; Pulse Ox 99% on R/A; Weight 87.54 kg; Pain rv 10/10; 23:00 BP 133 / 93; Pulse 82; Resp 18; Pulse Ox 97% on R/A; rv 23:30 BP 130 / 85; Pulse 74; Resp 17; Pulse Ox 97% on R/A; rv 12/25 00:30 BP 133 / 89; Pulse 71; Resp 17; Pulse Ox 95% on R/A; rv 00:58 BP 130 / 92; Pulse 71; Resp 16; Pulse Ox 98% on R/A; rv 00:59 Pain 4/10; rv MDM: 12/24 22:24 Patient medically screened. snw 12/25 00:54 Data reviewed: vital signs, nurses notes. Data interpreted: Pulse oximetry: on room air snw is 95 %. Interpretation: acceptable. Counseling: I had a detailed discussion with the patient and/or guardian regarding: the historical points, exam findings, and any diagnostic results supporting the discharge/admit diagnosis, the presence of at least one elevated blood pressure reading (>120/80) during this emergency department visit, lab results, radiology results, the need for outpatient follow up, to return to the emergency department if symptoms worsen or persist or if there are any questions or concerns that arise at home. Special discussion: Based on the patient's Hx, exam, and Dx evaluation, there is no indication for emergent surgery or inpatient Tx. It is understood by the patient/guardian that if the Sx's persist or worsen they need to return immediately for re-evaluation. I have referred the patient to see his PCP for further evaluation of high blood pressure. Based on the history and exam findings, there is no indication for further emergent testing or inpatient evaluation. I discussed with the patient/guardian the need to see the supervisor sheet manufacturing for further evaluation of the symptoms. I discussed with the patient/guardian the need to see the primary care provider for further evaluation of the symptoms. 12/24 22:39 Order name: Basic Metabolic Panel; Complete Time: 23:28 12/24 22:39 Order name: CBC with Diff; Complete Time: 23:10 12/24 22:39 Order name: Creatinine for Radiology; Complete Time: 23:28 rv 12/24 22:39 Order name: Hepatic Function; Complete Time: 23:28 rv 12/24 22:39 Order name: Lipase; Complete Time: 23:28 rv 12/24 22:44 Order name: CT Abd/Pelvis - IV Contrast Only snw 12/24 22:39 Order name: IV Saline Lock; Complete Time: 22:40 rv 12/24 22:39 Order name: Labs collected and sent; Complete Time: 22:41 rv Administered Medications: 12/24 23:00 Drug: morphine 4 mg {Note: rass 0.} Route: IVP; Site: right forearm; rv 12/25 00:59 Follow up: Pain 4/10 Adult; Response: No adverse reaction; Marked relief of symptoms; rv Pain is decreased; RASS: Alert and Calm (0) 12/24 23:00 Drug: NS 0.9% 1000 ml Route: IV; Rate: 1 bolus; Site: right forearm; rv 12/25 01:00 Follow up: IV Status: Completed infusion; IV Intake: 1000ml rv 12/24 23:01 Drug: Zofran 4 mg Route: IVP; Site: right forearm; rv 12/25 00:59 Follow up: Response: No adverse reaction rv Disposition: 06:23 Co-signature as Attending Physician, Mannie Chacon MD . ps1 Disposition: 12/25/19 00:51 Discharged to Home. Impression: Lower abdominal pain, unspecified, Colic. - Condition is Stable. - Discharge Instructions: Abdominal Pain, Adult, Fat and Cholesterol Restricted Diet, Hypertension, Pain Without a Known Cause, Intestinal Gas and Gas Pains, Pediatric, [place] Diet. - Prescriptions for Bentyl 20 mg Oral Tablet - take 1 tablet by ORAL route every 6 hours As needed; 20 tablet. promethazine 25 mg Oral Tablet - take 1 tablet by ORAL route every 6 hours As needed; 20 tablet. - Work release form, Medication Reconciliation Form, Thank You Letter, Antibiotic Education, Prescription Opioid Use form. - Follow up: Emergency Department; When: As needed; Reason: Worsening of condition. Follow up: Private Physician; When: 2 - 3 days; Reason: Recheck today's complaints, Continuance of care, Re-evaluation by your physician. Signatures: Dispatcher [employer] EDMN Fanny Talley CUSTOMS CONSULTANT-C CUSTOMS CONSULTANT-Csnw Mannie Chacon MD MD ps1 Sandeep Nichols, RN RN rv Corrections: (The following items were deleted from the chart) 01:05 00:51 12/25/2019 00:51 Discharged to Home. Impression: Lower abdominal pain, rv unspecified; Colic. Condition is Stable. Forms are Medication Reconciliation Form, Thank You Letter, Antibiotic Education, Prescription Opioid Use. Follow up: Emergency Department; When: As needed; Reason: Worsening of condition. Follow up: Private Physician; When: 2 - 3 days; Reason: Recheck today's complaints, Continuance of care, Re-evaluation by your physician. snw
--- NOTE | 2019-12-25 00:52 | ER ---
Nurse's Notes [facility] Name: Sarkis Huffman Age: 39 yrs Sex: Male : 1980 Arrival Date: 12/24/2019 Time: 22:10 Bed 15 Private MD: Diagnosis: Lower abdominal pain, unspecified;Colic Presentation: 12/24 22:28 Presenting complaint: Patient states: PAIN FOR THREE DAYS ON THE LLQ. WORSE TODAY, PAIN rv SCALE OF 10/10. PAIN COMES ON GOES. DENIES FEVER AND DIARRHEA/NAUSEA/VOMITING. Transition of care: patient was not received from another setting of care. Onset of symptoms was December 24, 2019 at 08:00. Risk Assessment: Do you want to hurt yourself or someone else? Patient reports no desire to harm self or others. Initial Sepsis Screen: Does the patient meet any 2 criteria? No. Patient's initial sepsis screen is negative. Does the patient have a suspected source of infection? No. Patient's initial sepsis screen is negative. Care prior to arrival: None. 22:28 Method Of Arrival: Ambulatory rv 22:28 Acuity: KELLY 3 rv Historical: - Allergies: 22:32 No Known Allergies; rv - Home Meds: 22:32 None [Active]; rv - PMHx: 22:32 Ulcers; rv - PSHx: 22:32 Appendectomy; rv - Immunization history:: Adult Immunizations unknown. - Coronavirus screen:: The patient has NOT traveled to [place] in the past 14 days. Proceed with normal triage process as indicated. The patient has NOT had contact with known/suspected case of Coronavirus? Proceed with normal triage procedures. - Social history:: Smoking status: Patient denies any tobacco usage or history of. - Ebola Screening: : No symptoms or risks identified at this time. Screenin:34 Abuse screen: Denies threats or abuse. Denies injuries from another. Nutritional rv screening: No deficits noted. Tuberculosis screening: No symptoms or risk factors identified. Fall Risk None identified. Assessment: 22:33 General: Appears in no apparent distress. Behavior is restless. Pain: Complains of pain rv in left lower quadrant Pain does not radiate. Neuro: Level of Consciousness is awake, alert, obeys commands, Oriented to person, place, time, situation. Cardiovascular: Patient's skin is warm and dry. Respiratory: Airway is patent. GI: Abdomen is non-distended, Bowel sounds present X 4 quads. Abd is soft Abdomen is tender to palpation in left lower quadrant. Derm: Skin is intact. 22:35 GI: Reports lower abdominal pain, nausea, Pain is 10 out of 10 on a pain scale. rv 12/25 01:04 Reassessment: Patient appears in no apparent distress at this time. Patient and/or rv family updated on plan of care and expected duration. Pain level reassessed. Patient is alert, oriented x 3, equal unlabored respirations, skin warm/dry/pink. KODI EXPLAINED THE TEST RESULTS TO THE FAMILY AND THE PATIENT. Patient states feeling better. Patient states symptoms have improved. Vital Signs: 12/24 22:27 BP 141 / 103; Pulse 78; Resp 17; Temp 98.2; Pulse Ox 99% on R/A; Weight 87.54 kg; Pain rv 10/10; 23:00 BP 133 / 93; Pulse 82; Resp 18; Pulse Ox 97% on R/A; rv 23:30 BP 130 / 85; Pulse 74; Resp 17; Pulse Ox 97% on R/A; rv 02 00:30 BP 133 / 89; Pulse 71; Resp 17; Pulse Ox 95% on R/A; rv 00:58 BP 130 / 92; Pulse 71; Resp 16; Pulse Ox 98% on R/A; rv 00:59 Pain 4/10; rv ED Course: 12/24 22:10 Patient arrived in ED. cl3 22:18 K[facility] Talley [facility]C [facility]. snw 22:19 Mannie Chacon MD is Attending Physician. snw 22:27 Sandeep Nichols RN is Primary Nurse. rv 22:31 Triage completed. rv 22:33 Arm band placed on Patient placed in the treatment room, on a stretcher, Patient rv notified of wait time. 22:35 Patient has correct armband on for positive identification. Pulse ox on. NIBP on. rv 22:35 Inserted saline lock: 18 gauge forearm, using aseptic technique. Blood collected. ds4 23:00 Lipase Sent. ds4 23:00 Hepatic Function Sent. ds4 23:00 Creatinine for Radiology Sent. ds4 23:00 CBC with Diff Sent. ds4 23:00 Basic Metabolic Panel Sent. ds4 23:19 Radiology exam delayed due to lab results not completed at this time. (BUN/Creatinine). 12/25 00:05 CT Abd/Pelvis - IV Contrast Only In Process Unspecified. EDMS 01:00 No provider procedures requiring assistance completed. IV discontinued, intact, rv bleeding controlled, No redness/swelling at site. Pressure dressing applied. Administered Medications: 12/24 23:00 Drug: morphine 4 mg {Note: rass 0.} Route: IVP; Site: right forearm; rv 12/25 00:59 Follow up: Pain 4/10 Adult; Response: No adverse reaction; Marked relief of symptoms; rv Pain is decreased; RASS: Alert and Calm (0) 12/24 23:00 Drug: NS 0.9% 1000 ml Route: IV; Rate: 1 bolus; Site: right forearm; rv 12/25 01:00 Follow up: IV Status: Completed infusion; IV Intake: 1000ml rv 12/24 23:01 Drug: Zofran 4 mg Route: IVP; Site: right forearm; rv 12/25 00:59 Follow up: Response: No adverse reaction rv Intake: 01:00 IV: 1000ml; Total: 1000ml. rv Outcome: 00:51 Discharge ordered by . reynaldo 01:03 Discharged to home ambulatory, with family. rv 01:03 Condition: good 01:03 Discharge instructions given to patient, family, Instructed on discharge instructions, follow up and referral plans. medication usage, Demonstrated understanding of instructions, follow-up care, medications, Prescriptions given X 2. 01:05 Patient left the ED. rv Signatures: Dispatcher [employer] EDNC Kodi Talley, SURGERY AID-C SURGERY AID-Markus Luque Jh Richardson ds4 Sandeep Nichols RN RN Dylan Brasher cl3
--- NOTE | 2019-12-25 10:41 | RAD REPORT ---
EXAM DESCRIPTION: CT - Abdomen Pelvis W Contrast - 12/25/2019 2:22 am CLINICAL HISTORY: ABD PAIN COMPARISON: 04/08/2019 TECHNIQUE: CT of the abdomen and pelvis performed following IV administration of iodinated contrast. FINDINGS: Lung Bases: The visualized lung bases are clear. Bones: Degenerative endplate spondylosis and facet arthropathy. Bilateral L5 pars defects. Abdomen: Liver: The liver has normal size and decreased density. No intrahepatic mass or biliary dilatation. Gallbladder: No calcified gallstones. Spleen, Pancreas, and Adrenal Glands: The spleen, pancreas, and adrenal glands are unremarkable. Kidneys: The kidneys have normal size without evidence of solid mass or hydronephrosis. Vasculature: The aorta and IVC have normal caliber and position. The portal vein is patent. The pro ximal visceral and renal arteries are patent. Stomach: The stomach and duodenum have normal course. Other: No free intraperitoneal air. No free fluid or lymphadenopathy. Pelvis: Bladder: Urinary bladder is unremarkable. Bowel: No dilated loops of large or small bowel. Appendix: Prior appendectomy. Pelvis: Prostate is not enlarged. IMPRESSION: 1. No acute inflammatory or obstructive process identified. 2. Hepatic steatosis. This exam was performed according to our departmental dose-optimization program, which includes autom ated exposure control, adjustment of the mA and/or kV according to patient size and/or use of iterati ve reconstruction technique. Electronically signed by: Vishnu Loo 12/25/2019 12:25 AM CRITICAL CARE NURSE PRACTITIONER Due to temporary technical issues with the PACS/Fluency reporting system, reports are being signed by the in house radiologist as a courtesy to ensure prompt reporting. The interpreting radiologist is f ully responsible for the content of the report.
== END 2019-12-25 01:05 | disposition home or self-care (01) ==
LOC: ER 22:08 → MERGE 22:08 → ER 12-25 01:05
DX: R10.84 Generalized abdominal pain (principal)
CPT/HCPCS: 36415; 74177; 80048; 80076; 83690; 85025; 96361; 96374; 96375; 99284; J2405; J7030; Q9967

== ENCOUNTER 2020-05-10 19:12 | Emergency (ER) | payer SELFPAY ==
[2020-05-10] MEDS ORDERED: ACETAMINOPHEN 500 MG TAB ONE (20:16)
[2020-05-10] MEDS ORDERED: NA CHLORIDE 0.9% 2,000 ML ONE (20:16)
[2020-05-10 20:21] LABS: Absolute Lymphocytes (CBC) 0.8 K/uL (0.7-4.9); Basophils % 0.4 % (0-1.3); Hematocrit 49.1 % (39.6-49.0); MPV 8.4 fL (7.6-11.3); RBC Red Blood Cell Count 5.48 M/uL (4.33-5.43)
[2020-05-10 20:23] LABS: Protime INR 1.03
[2020-05-10 21:17] LABS: ALT/SGPT 34 U/L (12-78); AST/SGOT 34 U/L (15-37); Alkaline Phosphatase 75 U/L (45-117); BUN Blood Urea Nitrogen 11 mg/dL (7-18); Bicarbonate 23 mmol/L (21-32); Bilirubin Direct < 0.1 mg/dL (0-0.2); Bilirubin Total 0.4 mg/dL (0.2-1.0); Ferritin 124.6 ng/mL (26-388); Glucose Level 98 mg/dL (74-106); Lipase 90 U/L (73-393); Potassium 4.3 mmol/L (3.5-5.1); Protein, Total 8.3 g/dL (6.4-8.2); Sodium Level 137 mmol/L (136-145)
--- NOTE | 2020-05-10 21:38 | RAD REPORT ---
EXAM DESCRIPTION: [place] Single View05/10/2020 9:10 pm CLINICAL HISTORY: Cough COMPARISON: 2017 FINDINGS: The lungs appear clear of acute infiltrate. The heart is normal size IMPRESSION: No acute abnormalities displayed
--- NOTE | 2020-05-10 22:48 | ER ---
Nurse's Notes [facility] Name: Adrian Huffman Age: 40 yrs Sex: Male : 1980 Arrival Date: 05/10/2020 Time: 19:14 Bed 20 Private MD: Diagnosis: Acute upper respiratory infection, unspecified Presentation: 05/10 19:38 Chief complaint: Patient states: Last night, headache and throat pains started. Today ca1 fever and chills, vomiting 2x. Denies N/diarrhea. Reports cough and SOB. Coronavirus screen: Surgical mask placed on patient. Patient moved to private room, placed in contact and droplet isolation with eye protection until further assessment. Patient reports a cough. Patient reports shortness of breath or difficulty breathing. Patient reports a measured and/or subjective temperature greater than 100.4F. Patient denies travel on a cruise ship or to a country the [facility] currently lists as an affected area. Patient denies contact with known and/or suspected case of COVID-19. Ebola Screen: Patient negative for fever greater than or equal to 101.5 degrees Fahrenheit, and additional compatible Ebola Virus Disease symptoms Patient denies exposure to infectious person. Patient denies travel to an Ebola-affected area in the 21 days before illness onset. No symptoms or risks identified at this time. Risk Assessment: Do you want to hurt yourself or someone else? Patient reports no desire to harm self or others. Note Bundles Hanger # [id number]. Onset of symptoms was May 10, 2020. 19:38 Method Of Arrival: Ambulatory ca1 19:38 Acuity: KELLY 2 ca1 20:17 Initial Sepsis Screen: Does the patient meet any 2 criteria? RR > 20 per min. Temp rv <36.0*C (96.8*F)) or > 38.3*C (100.9*F). HR > 90 bpm. Yes Does the patient have a suspected source of infection? Yes: Productive cough/pneumonia Acute abdominal pain. 05/11 10:16 Coronavirus screen: [facility] has been notified of hb person under investigation for COVID-19. PUI#: [id number]. Historical: - Allergies: 05/10 19:40 NKA; ca1 - Home Meds: 19:40 None [Active]; ca1 - PMHx: 19:40 Ulcers; ca1 - PSHx: 19:40 None; ca1 - Immunization history:: Adult Immunizations up to date. - Social history:: Smoking status: Patient denies any tobacco usage or history of. Screenin:17 Abuse screen: Denies threats or abuse. Denies injuries from another. Nutritional rv screening: No deficits noted. Tuberculosis screening: No symptoms or risk factors identified. Fall Risk None identified. Assessment: 20:16 General: Appears uncomfortable, Behavior is calm, cooperative. Pain: Complains of pain rv in head, generalized, joints and muscle aches. Neuro: Level of Consciousness is awake, alert, obeys commands, Oriented to person, place, time, situation. Neuro: Reports dizziness. Cardiovascular: Patient's skin is warm and dry. Rhythm is sinus tachycardia. Respiratory: Airway is patent Respiratory effort is even, unlabored, Respiratory pattern is tachypnea. GI: Bowel sounds present X 4 quads. Abd is soft and non tender X 4 quads. Reports upper abdominal pain. Derm: Skin is intact. Musculoskeletal: Circulation, motion, and sensation intact. Reports joint and muscle aches. 21:57 Reassessment: Patient and/or family updated on plan of care and expected duration. Pain rv level reassessed. Patient is alert, oriented x 3, equal unlabored respirations, skin warm/dry/pink. Patient denies pain at this time. Patient states feeling better. Patient states symptoms have improved. Vital Signs: 19:38 BP 135 / 97; Pulse 104; Resp 20 S; Temp 99.9(TE); Pulse Ox 98% on R/A; Weight 83.01 kg ca1 (R); Height 5 ft. 7 in. (170.18 cm) (R); 20:18 BP 142 / 103; Pulse 110; Resp 24; Temp 102.1; Pulse Ox 98% on R/A; rv 21:00 BP 145 / 99; Pulse 92; Resp 18; Pulse Ox 98% on R/A; rv 21:30 BP 140 / 94; Pulse 92; Resp 18; Pulse Ox 99% on R/A; rv 21:55 Temp 99.1(O); rv 22:45 BP 141 / 97; Pulse 92; Resp 18; Pulse Ox 98% ; rv 23:20 BP 127 / 91; Pulse 89; Resp 18; Temp 98.7; Pulse Ox 99% on R/A; rv 19:38 Body Mass Index 28.66 (83.01 kg, 170.18 cm) ca1 Vitals: 21:57 Cardiac Rhythm Assessment Regular Sinus rhythm. rv ED Course: 19:14 Patient arrived in ED. ds1 19:17 Mukund Guardado MD is Attending Physician. tw4 19:35 Sandeep Nichols, RN is Primary Nurse. rv 19:40 Triage completed. ca1 19:40 Arm band placed on right wrist. ca1 19:45 Inserted saline lock: 18 gauge in right forearm, using aseptic technique. Blood rv collected. 19:55 Initial lab(s) drawn, by me, sent to lab. First set of blood cultures drawn by me, rv Second set of blood cultures drawn. Inserted saline lock: 18 gauge in right antecubital area, using aseptic technique. Blood collected. 19:55 Second set of blood cultures drawn by me. rv 20:14 CXR XRAY Sent. rv 20:17 Patient has correct armband on for positive identification. Placed in gown. Bed in low rv position. Call light in reach. Side rails up X 1. enthone solder stripper on. Pulse ox on. NIBP on. 20:18 EKG done, by ED staff, reviewed by Mukund Guardado MD Flu and/or RSV swab sent to lab. rv covid 19 swab. 20:35 CXR XRAY In Process Unspecified. EDMS 21:57 No provider procedures requiring assistance completed. rv 23:21 IV discontinued, intact, bleeding controlled, No redness/swelling at site. Pressure rv dressing applied. Administered Medications: 20:13 Drug: NS 0.9% 1000 ml Route: IV; Rate: 1 bolus; Site: right forearm; rv 21:55 Follow up: IV Status: Completed infusion; IV Intake: 1000ml rv 20:14 Drug: Tylenol 1000 mg Route: PO; rv 21:55 Follow up: Temp 99.1 Oral; Response: No adverse reaction; Temperature is decreased rv 23:20 Drug: Decadron - Dexamethasone 10 mg Route: IVP; Site: right antecubital; rv 23:20 Follow up: Response: Medication administered at discharge. rv 23:20 Drug: AZITHromycin 500 mg Route: PO; rv 23:20 Follow up: Response: Medication administered at discharge. rv Intake: 21:55 IV: 1000ml; Total: 1000ml. rv Outcome: 22:47 Discharge ordered by . tw4 23:21 Discharged to home ambulatory. rv 23:21 Condition: improved 23:21 Discharge instructions given to patient, Instructed on discharge instructions, follow up and referral plans. medication usage, Demonstrated understanding of instructions, follow-up care, medications, Prescriptions given X 4. 23:21 Patient left the ED. rv Addendum: 05/13/2020 20:01 Addendum: COVID-19 Result: Positive result giiven to ED physician to notify pt. s g Physician: Shan Gonzalez MD Physician attempted to contact pt. Physician left voice mail for pt to call the ED back. Other: at [id number]. Signatures: Dispatcher [employer] EDMS Mo Go, RN RN Candi Baker ds1 Maru Wilkerson, RN RN Mukund Guardado MD MD tw4 Sandeep Nichols RN RN rv Jannette Pineda RN RN ca1 Corrections: (The following items were deleted from the chart) 05/10 19:41 19:38 Initial Sepsis Screen: Does the patient meet any 2 criteria? No. Patient's ca1 initial sepsis screen is negative. Does the patient have a suspected source of infection? No. Patient's initial sepsis screen is negative. ca1 19:41 19:38 Acuity: KELLY 3 ca1 ca1
--- NOTE | 2020-05-10 22:48 | EDPHYS ---
Physician Documentation [facility] Name: Adrian Huffman Age: 40 yrs Sex: Male : 1980 Arrival Date: 05/10/2020 Time: 19:14 Bed 20 Private MD: ED Physician Mukund Guardado HPI: 05/10 22:45 This 40 yrs old Male presents to ER via Ambulatory with complaints of Fever, tw4 Dizziness, Abdominal Pain. 22:45 The patient reports fever, not measured (subjective). Onset: The symptoms/episode tw4 began/occurred today. Modifying factors: there are no obvious modifying factors. Associated signs and symptoms: Pertinent positives: shortness of breath. Severity of symptoms: At their worst the symptoms were moderate. The patient has not experienced similar symptoms in the past. Historical: - Allergies: 19:40 NKA; ca1 - Home Meds: 19:40 None [Active]; ca1 - PMHx: 19:40 Ulcers; ca1 - PSHx: 19:40 None; ca1 - Immunization history:: Adult Immunizations up to date. - Social history:: Smoking status: Patient denies any tobacco usage or history of. ROS: 05/11 06:03 Eyes: Negative for injury, pain, redness, and discharge, Neck: Negative for injury, tw4 pain, and swelling, Cardiovascular: Negative for chest pain, palpitations, and edema, Abdomen/GI: Negative for abdominal pain, nausea, vomiting, diarrhea, and constipation, Back: Negative for injury and pain, MS/Extremity: Negative for injury and deformity, Skin: Negative for injury, rash, and discoloration, Neuro: Negative for headache, weakness, numbness, tingling, and seizure. Constitutional: Positive for body aches, chills, fatigue, fever. Respiratory: Positive for cough, shortness of breath. Exam: 06:03 Constitutional: This is a well developed, well nourished patient who is awake, alert, tw4 and in no acute distress. Head/Face: Normocephalic, atraumatic. Chest/axilla: Normal chest wall appearance and motion. Nontender with no deformity. No lesions are appreciated. Cardiovascular: Regular rate and rhythm with a normal S1 and S2. No gallops, murmurs, or rubs. Normal PMI, no JVD. No pulse deficits. Respiratory: Lungs have equal breath sounds bilaterally, clear to auscultation and percussion. No rales, rhonchi or wheezes noted. No increased work of breathing, no retractions or nasal flaring. Abdomen/GI: Soft, non-tender, with normal bowel sounds. No distension or tympany. No guarding or rebound. No evidence of tenderness throughout. Back: No spinal tenderness. No costovertebral tenderness. Full range of motion. MS/ Extremity: Pulses equal, no cyanosis. Neurovascular intact. Full, normal range of motion. Neuro: Awake and alert, GCS 15, oriented to person, place, time, and situation. Cranial nerves II-XII grossly intact. Motor strength 5/5 in all extremities. Sensory grossly intact. Cerebellar exam normal. Normal gait. Vital Signs: 05/10 19:38 BP 135 / 97; Pulse 104; Resp 20 S; Temp 99.9(TE); Pulse Ox 98% on R/A; Weight 83.01 kg ca1 (R); Height 5 ft. 7 in. (170.18 cm) (R); 20:18 BP 142 / 103; Pulse 110; Resp 24; Temp 102.1; Pulse Ox 98% on R/A; rv 21:00 BP 145 / 99; Pulse 92; Resp 18; Pulse Ox 98% on R/A; rv 21:30 BP 140 / 94; Pulse 92; Resp 18; Pulse Ox 99% on R/A; rv 21:55 Temp 99.1(O); rv 22:45 BP 141 / 97; Pulse 92; Resp 18; Pulse Ox 98% ; rv 23:20 BP 127 / 91; Pulse 89; Resp 18; Temp 98.7; Pulse Ox 99% on R/A; rv 19:38 Body Mass Index 28.66 (83.01 kg, 170.18 cm) ca1 MDM: 22:47 Patient medically screened. tw4 05/11 06:04 Differential diagnosis: viral Infection, bacterial infection, bronchitis. Data tw4 reviewed: vital signs, nurses notes. Data reviewed: lab test result(s), CBC, electrolytes, Flu: negative radiologic studies, plain films. Data interpreted: Pulse oximetry: Interpretation: normal. Counseling: I had a detailed discussion with the patient and/or guardian regarding: the historical points, exam findings, and any diagnostic results supporting the discharge/admit diagnosis, lab results, radiology results, the need for outpatient follow up. Special discussion: I discussed with the patient/guardian in detail that at this point there is no indication for admission to the hospital. It is understood, however, that if the symptoms persist or worsen the patient needs to return immediately for re-evaluation. 05/10 19:18 Order name: Basic Metabolic Panel [facility] 05/10 19:18 Order name: CBC with Diff tw4 05/10 19:18 Order name: Hepatic Function tw4 05/10 19:55 Order name: COVID-19 tw4 05/10 19:55 Order name: Flu; Complete Time: 22:10 [facility] 05/10 19:55 Order name: Strep; Complete Time: 22:10 05/10 19:59 Order name: Blood Culture Adult (2) tw05/10 19:59 Order name: BMP; Complete Time: 22:10 05/10 22:10 Interpretation: Normal except: GFR 87. tw05/10 19:59 Order name: C-Reactive Protein; Complete Time: 22:10 05/10 19:59 Order name: CBC with Diff 4 05/10 19:59 Order name: D-Dimer; Complete Time: 22:10 05/10 19:59 Order name: Ferritin; Complete Time: 22:10 05/10 19:59 Order name: Lactate; Complete Time: 22:10 05/10 19:59 Order name: LFT's; Complete Time: 22:10 05/10 19:59 Order name: Lipase; Complete Time: 22:10 05/10 19:59 Order name: Procalcitonin; Complete Time: 22:10 05/10 19:59 Order name: PT-INR; Complete Time: 22:10 05/10 19:59 Order name: Ptt, Activated; Complete Time: 22:10 05/10 19:59 Order name: Urine Microscopic Only tw4 05/10 21:04 Order name: Throat Culture [facility] 05/10 21:49 Order name: Urine Dipstick--Ancillary (enter results) tt3 05/10 22:42 Order name: Manual Differential [facility] 05/10 19:18 Order name: IV Saline Lock; Complete Time: 20:14 tw4 05/10 19:18 Order name: Labs collected and sent; Complete Time: 20:14 05/10 19:55 Order name: Document PUI#; Complete Time: 20:14 05/10 19:55 Order name: Droplet/Contact Precautions; Complete Time: 20:14 05/10 19:55 Order name: Faith [facility] [phone]/ ; Complete Time: 20:14 05/10 19:59 Order name: CXR XRAY; Complete Time: 22:10 05/10 19:59 Order name: Cardiac monitoring; Complete Time: 20:14 05/10 19:59 Order name: Document PUI#; Complete Time: 20:14 05/10 19:59 Order name: Droplet/Contact Precautions; Complete Time: 20:14 05/10 19:59 Order name: IV Start; Complete Time: 20:14 05/10 19:59 Order name: [facility] [phone]/ ; Complete Time: 20:14 05/10 19:59 Order name: O2 Per Protocol; Complete Time: 20:14 05/10 19:59 Order name: O2 Sat Monitoring; Complete Time: 20:14 05/10 19:59 Order name: Urine Dipstick-Ancillary (obtain specimen); Complete Time: 22:39 tw4 EC/07 20:04 Rate is 110 beats/min. Rhythm is regular. QRS [place] is Normal. AR interval is normal. tw4 QRS interval is normal. QT interval is normal. No Q waves. T waves are Normal. No ST changes noted. Clinical impression: Sinus tachycardia. Interpreted by me. Reviewed by me. Administered Medications: 20:13 Drug: NS 0.9% 1000 ml Route: IV; Rate: 1 bolus; Site: right forearm; rv 21:55 Follow up: IV Status: Completed infusion; IV Intake: 1000ml rv 20:14 Drug: Tylenol 1000 mg Route: PO; rv 21:55 Follow up: Temp 99.1 Oral; Response: No adverse reaction; Temperature is decreased rv 23:20 Drug: Decadron - Dexamethasone 10 mg Route: IVP; Site: right antecubital; rv 23:20 Follow up: Response: Medication administered at discharge. rv 23:20 Drug: AZITHromycin 500 mg Route: PO; rv 23:20 Follow up: Response: Medication administered at discharge. rv Disposition: 05/10/20 22:47 Discharged to Home. Impression: Acute upper respiratory infection, unspecified. - Condition is Stable. - Discharge Instructions: Upper Respiratory Infection, Pediatric, Viral Respiratory Infection. - Prescriptions for Ibuprofen 800 mg Oral Tablet - take 1 tablet by ORAL route every 8 hours As needed take with food; 30 tablet. Tessalon Perles 100 mg Oral Capsule - take 1 capsule by ORAL route every 8 hours As needed; 15 capsule. Zithromax Z- Ang 250 mg Oral Tablet - take 1 tablet by ORAL route as directed for 5 days Day 1 - take two (2) tablets one time. Day 2, 3, 4 , 5 take one (1) tablet once daily.; 6 tablet. Medrol (Ang) 4 mg Oral Tablets, Dose Pack - take 1 tablet by ORAL route as directed - follow package instructions; 1 packet. Albuterol Sulfate 90 mcg/actuation - inhale 1-2 puff by INHALATION route every 4-6 hours; 1 Inhaler. - Medication Reconciliation Form, Thank You Letter, Antibiotic Education, Prescription Opioid Use form. - Follow up: Private Physician; When: Upon discharge from the Emergency Department; Reason: Recheck today's complaints, Continuance of care, Re-evaluation by your physician. - Problem is new. - Symptoms have improved. Signatures: Dispatcher [employer] EDNV Mukund uGardado MD MD tw4 Sandeep Nichols RN RN rv Jannette Pineda RN RN ca1 Corrections: (The following items were deleted from the chart) 21: 19:20 Basic Metabolic Panel ordered. EDNV EDMS 21: 19:20 CBC with Automated Diff ordered. EDNV EDMS 21: 19:20 Liver (Hepatic) Function ordered. EDNV EDMS : 19:20 LIPASE+C.LAB.BRZ ordered. EDMS EDMS 21: 20:01 CORONAVIRUS+MR.LAB.BRZ ordered. EDNV EDMS 21: 20:01 Influenza Screen (A \T\ B)+BA.LAB.BRZ ordered. EDNV EDMS 21: 20:01 Group A Streptococcus Rapid Sc+BA.LAB.BRZ ordered. EDMS EDMS 22:41 21:40 CBC Smear Scan ordered. EDMS EDMS 23:21 22:47 05/10/2020 22:47 Discharged to Home. Impression: Acute upper respiratory rv infection, unspecified. Condition is Stable. Forms are Medication Reconciliation Form, Thank You Letter, Antibiotic Education, Prescription Opioid Use. Follow up: Private Physician; When: Upon discharge from the Emergency Department; Reason: Recheck today's complaints, Continuance of care, Re-evaluation by your physician. Problem is new. Symptoms have improved. tw4
[2020-05-10 23:13] LABS: Blood Morphology Comment NOT SEEN (NOT SEEN); Platelet Estimate ADEQ
[2020-05-10 23:17] LABS: Urine Blood TRACE (NEG); Urine Glucose NEGATIVE (NEG); Urine Protein TRACE (NEG); Urine Specific Gravity >1.030 (1.005-1.030); Urine pH 5.5 (5.0-7.0)
[2020-05-10] MEDS ORDERED: AZITHROMYCIN 250 MG TAB ONE (23:19)
[2020-05-10] MEDS ORDERED: dexAMETHasone 10 MG/ML VIAL ONE (23:19)
[2020-05-10 23:39] LABS: Urine Bacteria <20 /HPF (NONE SEEN); Urine Culture Reflex Order NOT NEEDED; Urine Mucus 2+ /HPF (NONE SEEN); Urine RBC <5 /HPF (NONE SEEN)
[2020-05-10 23:44] VITALS: BP 127/91; TEMP 98.7; O2SAT 99
== END 2020-05-10 23:21 | disposition home or self-care (01) ==
LOC: ER 19:12
DX: U07.1 COVID-19 (principal); J06.9 Acute upper respiratory infection, unspecified
CPT/HCPCS: 36415; 71045; 80048; 80076; 81003; 81015; 82728; 83605; 83690; 84145; 85025; 85379; 85610; 85730; 86140; 87040; 87070; 87081; 87804; 93005; 96361; 96374; 99285; J1100; J7030; U0001

== ENCOUNTER 2020-05-16 05:35 | Emergency (ER) | payer SELFPAY ==
[2020-05-16 06:30] LABS: Absolute Lymphocytes (CBC) 1.3 K/uL (0.7-4.9); Basophils % 0.5 % (0-1.3); Hematocrit 49.8 % (39.6-49.0); Lymphocytes % 28.9 % (15.3-44.8); MPV 8.4 fL (7.6-11.3); RBC Red Blood Cell Count 5.58 M/uL (4.33-5.43)
[2020-05-16 06:42] LABS: Protime INR 1.05
[2020-05-16] MEDS ORDERED: ONDANSETRON 4 MG/2 ML VIAL ONE (06:42)
[2020-05-16] MEDS ORDERED: NA CHLORIDE 0.9% 1,000 ML ONE (06:42)
[2020-05-16] MEDS ORDERED: KETOROLAC 30 MG/ML INJ ONE (06:42)
[2020-05-16 06:49] LABS: ALT/SGPT 31 U/L (12-78); AST/SGOT 29 U/L (15-37); Albumin 3.5 g/dL (3.4-5.0); Alkaline Phosphatase 60 U/L (45-117); BUN Blood Urea Nitrogen 15 mg/dL (7-18); Bicarbonate 25 mmol/L (21-32); Bilirubin Direct < 0.1 mg/dL (0-0.2); Bilirubin Total 0.4 mg/dL (0.2-1.0); Glucose Level 93 mg/dL (74-106); NT PRO-BNP 7 pg/mL (<125); Potassium 3.9 mmol/L (3.5-5.1); Protein, Total 7.4 g/dL (6.4-8.2); Sodium Level 136 mmol/L (136-145); Troponin (Emerg Dept Use Only) 0.03 ng/mL (0.0-0.045)
--- NOTE | 2020-05-16 09:00 | RAD REPORT ---
EXAM DESCRIPTION: [place] Single View05/16/2020 8:00 am CLINICAL HISTORY: Cough COMPARISON: May 10 FINDINGS: Mild bibasilar lung opacities suspected The heart is normal size IMPRESSION: Mild bibasilar lung opacities may represent Covid pneumonia
--- NOTE | 2020-05-16 09:13 | ER ---
Nurse's Notes [facility] Name: Adrian Huffman Age: 40 yrs Sex: Male : 1980 Arrival Date: 05/16/2020 Time: 05:36 Bed 16 Private MD: Diagnosis: Pneumonia in diseases classified elsewhere Presentation: 05/16 06:00 Chief complaint: Patient states: Reports he is covid positive this is his 6th day ea knowing he is positive. States he started having difficulty breathing last night, has been having nausea and abdominal pain. Coronavirus screen: Patient reports a cough. Patient reports shortness of breath or difficulty breathing. Prior COVID test. Ebola Screen: No symptoms or risks identified at this time. Initial Sepsis Screen: Does the patient meet any 2 criteria? No. Patient's initial sepsis screen is negative. Does the patient have a suspected source of infection? No. Patient's initial sepsis screen is negative. Risk Assessment: Do you want to hurt yourself or someone else? Patient reports no desire to harm self or others. Onset of symptoms was May 16, 2020. 06:00 Method Of Arrival: Ambulatory ea 06:00 Acuity: KELLY 3 ea Triage Assessment: 06:03 General: Appears uncomfortable, Behavior is appropriate for age. Pain: Complains of ea pain in abdomen. Historical: - Allergies: 06:03 NKA; ea - PMHx: 06:03 Ulcers; ea - PSHx: 06:03 None; ea - Immunization history:: Adult Immunizations up to date. - Social history:: Smoking status: Patient denies any tobacco usage or history of. Screenin:02 Abuse screen: Denies threats or abuse. Nutritional screening: No deficits noted. ea Tuberculosis screening: No symptoms or risk factors identified. Fall Risk None identified. Assessment: 06:03 General: Appears in no apparent distress. Behavior is calm, cooperative, appropriate ea for age. Pain: Complains of pain in abdomen. Neuro: Level of Consciousness is awake, alert, obeys commands, Oriented to person, place, time. Cardiovascular: Patient's skin is warm and dry. Respiratory: Airway is patent Respiratory effort is even, unlabored, Respiratory pattern is regular, symmetrical. Derm: Skin is pink, warm \T\ dry. 07:15 Reassessment: Patient is alert, oriented x 3, equal unlabored respirations, skin aa5 warm/dry/pink. Awaiting results. . 10:00 Reassessment: Patient is alert, oriented x 3, equal unlabored respirations, skin aa5 warm/dry/pink. Awaiting Zithromax from pharmacy . 12:00 Reassessment: Patient is alert, oriented x 3, equal unlabored respirations, skin aa5 warm/dry/pink. Vital Signs: 06:00 BP 113 / 88; Pulse 90; Resp 22; Temp 99.4; Pulse Ox 94% on R/A; Weight 81.65 kg; Height ea 5 ft. 5 in. (165.10 cm); 07:16 BP 141 / 86; Pulse 60; Resp 18; Pulse Ox 98% on R/A; ea 09:57 BP 104 / 74; Pulse 83; Resp 20; Temp 98.5(O); Pulse Ox 95% on R/A; mh5 11:45 BP 115 / 83; Pulse 74; Resp 18 S; Pulse Ox 96% on R/A; aa5 06:00 Body Mass Index 29.95 (81.65 kg, 165.10 cm) ea ED Course: 05:36 Patient arrived in ED. ds1 05:51 Nadine Mccarthy, RN is Primary Nurse. ea 06:02 Triage completed. ea 06:03 Arm band placed on right wrist. Patient placed in an exam room, on a stretcher, on ea quality assurance monitor final, on pulse oximetry. 06:03 Patient has correct armband on for positive identification. Bed in low position. Call ea light in reach. Side rails up X2. 06:12 Michel Centeno PA is PHCP. cp 06:12 Mukund Guardado MD is Attending Physician. cp 06:12 Inserted saline lock: 20 gauge in right antecubital area, using aseptic technique. ea 06:55 Inserted saline lock: 22 gauge in left antecubital area, using aseptic technique. ea 08:01 XRAY Chest (1 view) In Process Unspecified. EDMS 12:00 No provider procedures requiring assistance completed. IV discontinued, intact, aa5 bleeding controlled, No redness/swelling at site. Pressure dressing applied, 20 G to R AC dc'd and 22 G to L AC dc'd. Administered Medications: 07:13 Drug: TORadol - Ketorolac 15 mg Route: IVP; Site: right antecubital; ea 07:20 Follow up: Response: No adverse reaction aa5 07:13 Drug: Zofran (Ondansetron) 4 mg Route: IVP; Site: right antecubital; ea 07:30 Follow up: Response: No adverse reaction aa5 07:13 Drug: NS 0.9% 1000 ml Route: IV; Rate: 1 bolus; Site: left antecubital; ea 08:30 Follow up: IV Status: Completed infusion; IV Intake: 1000ml aa5 09:42 CANCELLED (Physician Discretion): Albuterol 2.5 mg Inhalation once ss 10:00 Drug: Rocephin - (cefTRIAXone) 1 grams {Note: administered slow IVP per pharmacy at [facility] this time. .} Route: IVPB; Infused Over: 30 mins; Site: right antecubital; 10:18 Follow up: Response: No adverse reaction aa5 10:00 Drug: Ventolin Inhaler 2 puffs Route: Inhalation; aa5 10:18 Drug: Zithromax 500 mg Route: IVPB; Infused Over: 1 hrs; Site: right antecubital; aa5 11:45 Follow up: Response: No adverse reaction; IV Status: Completed infusion aa5 Intake: 08:30 IV: 1000ml; Total: 1000ml. aa5 Outcome: 09:12 Discharge ordered by . cp 12:00 Discharged to home ambulatory. aa5 12:00 Condition: stable 12:00 Discharge instructions given to patient, Instructed on discharge instructions, follow up and referral plans. medication usage, Demonstrated understanding of instructions, follow-up care, medications, Prescriptions given X 3. 12:16 Patient left the ED. aa5 Signatures: Dispatcher [employer] [facility] Candi Baker ds1 Laly Alford RN RN aa5 Michel Centeno PA PA cp Martinez, Maria [facility] Nadine Mccarthy RN RN ea Smirch, Shelby RN ss Corrections: (The following items were deleted from the chart) 10:19 10:00 Rocephin - (cefTRIAXone) 1 grams IVPB in right antecubital over 30 mins aa5 aa5
--- NOTE | 2020-05-16 09:13 | EDPHYS ---
Physician Documentation [facility] Name: Adrian Huffman Age: 40 yrs Sex: Male : 1980 Arrival Date: 05/16/2020 Time: 05:36 Bed 16 Private MD: ED Physician Mukund Guardado HPI: 05/16 06:32 This 40 yrs old Male presents to ER via Ambulatory with complaints of Chills, cp Doesn't Feel Right. 06:32 The patient has shortness of breath at rest. Onset: The symptoms/episode began/occurred cp last night. Associated signs and symptoms: Pertinent positives: chest pain, non-productive cough, nausea, Pertinent negatives: fever, hemoptysis, vomiting. Severity of symptoms: in the emergency department the symptoms are unchanged despite home interventions. Patient reports testing positive for COVID-19 6 days ago. Historical: - Allergies: 06:03 NKA; ea - PMHx: 06:03 Ulcers; ea - PSHx: 06:03 None; ea - Immunization history:: Adult Immunizations up to date. - Social history:: Smoking status: Patient denies any tobacco usage or history of. ROS: 06:35 Eyes: Negative for injury, pain, redness, and discharge. cp 06:35 Constitutional: Positive for chills, Negative for fever, poor PO intake. 06:35 ENT: Negative for ear pain, sore throat, difficulty swallowing, difficulty handling secretions. 06:35 Cardiovascular: Positive for chest pain, Negative for edema, palpitations. 06:35 Respiratory: Positive for cough, shortness of breath, Negative for wheezing. 06:35 Abdomen/GI: Positive for nausea, Negative for abdominal pain, vomiting, diarrhea, constipation. 06:35 Skin: Negative for rash. 06:35 Neuro: Negative for altered mental status, headache, weakness. 06:35 All other systems are negative. cp Exam: 06:40 Head/Face: Normocephalic, atraumatic. cp 06:40 Constitutional: The patient appears in no acute distress, alert, awake, non-diaphoretic, non-toxic, well developed, well nourished. 06:40 Eyes: Periorbital structures: appear normal, Conjunctiva: normal, no exudate, no injection, Sclera: no appreciated abnormality, Lids and lashes: appear normal, bilaterally. 06:40 ENT: External ear(s): are unremarkable, Nose: is normal, Posterior pharynx: Airway: no evidence of obstruction, patent. 06:40 Neck: ROM/movement: is normal, is supple, without pain, no range of motions limitations, no meningismus, no nuchal rigidity. 06:40 Chest/axilla: Inspection: normal, Palpation: is normal, no crepitus, no tenderness. 06:40 Cardiovascular: Rate: normal, Rhythm: regular, Edema: is not appreciated. 06:40 Respiratory: the patient does not display signs of respiratory distress, Respirations: normal, no use of accessory muscles, no retractions, labored breathing, is not present, Breath sounds: are clear throughout, no decreased breath sounds, no stridor, no wheezing. 06:40 Abdomen/GI: Inspection: abdomen appears normal, Bowel sounds: active, all quadrants, Palpation: soft, in all quadrants, mild abdominal tenderness, in all quadrants, rebound tenderness, is not appreciated, voluntary guarding, is not appreciated, involuntary guarding, is not appreciated. 06:40 Back: pain, is absent, ROM is normal. 06:40 Skin: no rash present. 06:40 Neuro: Orientation: to person, place \T\ time. Mentation: is normal, Motor: moves all fours, strength is normal. 07:07 ECG was reviewed by the Attending Physician. cp Vital Signs: 06:00 BP 113 / 88; Pulse 90; Resp 22; Temp 99.4; Pulse Ox 94% on R/A; Weight 81.65 kg; Height ea 5 ft. 5 in. (165.10 cm); 07:16 BP 141 / 86; Pulse 60; Resp 18; Pulse Ox 98% on R/A; ea 09:57 BP 104 / 74; Pulse 83; Resp 20; Temp 98.5(O); Pulse Ox 95% on R/A; mh5 11:45 BP 115 / 83; Pulse 74; Resp 18 S; Pulse Ox 96% on R/A; aa5 06:00 Body Mass Index 29.95 (81.65 kg, 165.10 cm) ea MDM: 06:31 Patient medically screened. cp 09:10 Data reviewed: vital signs, nurses notes, lab test result(s), EKG, radiologic studies, cp plain films, and as a result, I will discharge patient, administer antibiotics Rocephin, Zithromax. Test interpretation: by ED physician or midlevel provider: ECG. 05/16 06:23 Order name: Basic Metabolic Panel; Complete Time: 07:05 ea 05/16 07:06 Interpretation: Normal except: CA 8.4. 05/16 06:23 Order name: CBC with Diff; Complete Time: 07:05 05/16 07:07 Interpretation: Normal except: WBC 4.4; RBC 5.58; HCT 49.8; PLT 196. 05/16 06:23 Order name: LFT's; Complete Time: 07:05 05/16 06:23 Order name: Magnesium; Complete Time: 07:05 05/16 06:23 Order name: NT PRO-BNP; Complete Time: 07:05 05/16 06:23 Order name: PT-INR; Complete Time: 07:05 05/16 06:23 Order name: Troponin (emerg Dept Use Only); Complete Time: 07:05 05/16 07:07 Interpretation: TROPED 0.03. 05/16 06:23 Order name: XRAY Chest (1 view); Complete Time: 09:02 05/16 09:02 Interpretation: Report review. 05/16 06:30 Order name: D-Dimer; Complete Time: 08:09 05/16 08:09 Interpretation: Within normal limits: D-DIMER 461. 05/16 06:30 Order name: Fibrinogen; Complete Time: 08:09 05/16 06:31 Order name: Lactate; Complete Time: 08:09 05/16 08:09 Interpretation: Within normal limits: LAC 1.0. 05/16 06:31 Order name: Procalcitonin; Complete Time: 09:02 05/16 06:31 Order name: Blood Culture Adult (2) 05/16 06:23 Order name: EKG; Complete Time: 06:24 05/16 06:23 Order name: Cardiac monitoring; Complete Time: 07:14 ea 05/16 06:23 Order name: EKG - Nurse/Tech; Complete Time: 07:14 ea 05/16 06:23 Order name: IV Saline Lock; Complete Time: 07:14 ea 05/16 06:23 Order name: Labs collected and sent; Complete Time: : ea 05/16 06:23 Order name: O2 Per Protocol; Complete Time: ea 05/16 06:23 Order name: O2 Sat Monitoring; Complete Time: : EC: Rate is 90 beats/min. Rhythm is regular. TX interval is normal. QRS interval is normal. cp QT interval is normal. T waves are Inverted in lead aVR. Interpreted by me. Reviewed by me. Administered Medications: 07:13 Drug: TORadol - Ketorolac 15 mg Route: IVP; Site: right antecubital; ea 07:20 Follow up: Response: No adverse reaction aa5 07:13 Drug: Zofran (Ondansetron) 4 mg Route: IVP; Site: right antecubital; ea 07:30 Follow up: Response: No adverse reaction aa5 07:13 Drug: NS 0.9% 1000 ml Route: IV; Rate: 1 bolus; Site: left antecubital; ea 08:30 Follow up: IV Status: Completed infusion; IV Intake: 1000ml aa5 09:42 CANCELLED (Physician Discretion): Albuterol 2.5 mg Inhalation once ss 10:00 Drug: Rocephin - (cefTRIAXone) 1 grams {Note: administered slow IVP per pharmacy at [facility] this time. .} Route: IVPB; Infused Over: 30 mins; Site: right antecubital; 10:18 Follow up: Response: No adverse reaction aa5 10:00 Drug: Ventolin Inhaler 2 puffs Route: Inhalation; aa5 10:18 Drug: Zithromax 500 mg Route: IVPB; Infused Over: 1 hrs; Site: right antecubital; aa5 11:45 Follow up: Response: No adverse reaction; IV Status: Completed infusion aa5 Disposition: 16:37 Co-signature as Attending Physician, Mukund Guardado MD I agree with the assessment and 4 plan of care. Disposition: 05/16/20 09:12 Discharged to Home. Impression: Pneumonia in diseases classified elsewhere. - Condition is Stable. - Discharge Instructions: Community-Acquired Pneumonia, Adult. - Prescriptions for Zithromax Z- Ang 250 mg Oral Tablet - take 1 tablet by ORAL route as directed for 5 days Day 1 - take two (2) tablets one time. Day 2, 3, 4 , 5 take one (1) tablet once daily.; 6 tablet. Tessalon Perles 100 mg Oral Capsule - take 2 capsule by ORAL route every 8 hours As needed; 30 capsule. Albuterol Sulfate 90 mcg/actuation - inhale 1-2 puff by INHALATION route every 4-6 hours; 1 Inhaler. - Medication Reconciliation Form, Thank You Letter, Antibiotic Education, Prescription Opioid Use form. - Follow up: Private Physician; When: 1 - 2 days; Reason: Recheck today's complaints. - Problem is new. - Symptoms have improved. Signatures: Dispatcher [employer] EDLaly Guthrie RN RN aa5 Cindi Duarte RN RN ss Michel Centeno PA PA cp Nadine Mccarthy RN RN Mukund Olson MD MD tw4 Corrections: (The following items were deleted from the chart) 07:06 07:05 Normal except. cp cp 09:42 09:03 Albuterol 2.5 mg Inhalation once ordered. cp 12:16 09:12 05/16/2020 09:12 Discharged to Home. Impression: Pneumonia in diseases classified aa5 elsewhere. Condition is Stable. Forms are Medication Reconciliation Form, Thank You Letter, Antibiotic Education, Prescription Opioid Use. Follow up: Private Physician; When: 1 - 2 days; Reason: Recheck today's complaints. Problem is new. Symptoms have improved. cp
[2020-05-16] MEDS ORDERED: CEFTRIAXONE/SWI 1gm 1 GM/10 ML SYR ONE (09:53)
[2020-05-16] MEDS ORDERED: ALBUTEROL INHALER 60 PUFF/8 GM IH ONE (09:54)
[2020-05-16] MEDS ORDERED: AZITHROMYCIN IV 500 MG in NA CHLORIDE 0.9% 250 ML IVPB ONE (10:00)
[2020-05-16 14:02] VITALS: BP 104/74; TEMP 98.5; O2SAT 95
== END 2020-05-16 12:16 | disposition home or self-care (01) ==
LOC: ER 05:35
DX: U07.1 COVID-19 (principal); J12.89 Other viral pneumonia
CPT/HCPCS: 36415; 71045; 80048; 80076; 83605; 83735; 83880; 84145; 84484; 85025; 85379; 85384; 85610; 87040; 93005; 96361; 96365; 96375; 99284; J0456; J0696; J2405; J7030; J7050

== ENCOUNTER 2021-11-01 09:56 | Emergency (ER) | payer SELFPAY ==
[2021-11-01] MEDS ORDERED: ACETAMINOPHEN 500 MG TAB ONE (10:17)
--- NOTE | 2021-11-01 11:50 | RAD REPORT ---
EXAM DESCRIPTION: RAD - Chest Pa And Lat (2 Views) - 11/01/2021 11:16 am CLINICAL HISTORY: COUGH COMPARISON: Portable May 2020 TECHNIQUE: Frontal and lateral views of the chest were obtained. FINDINGS: The lungs are underinflated. No peripheral mass, consolidation or failure finding. Interst itial pattern is believed be baseline. Trachea is midline. Heart size is normal and central vasculature is within normal limits. No pleural effusion or pneu mothorax seen. No acute bony finding noted. No aortic abnormality. IMPRESSION: No acute cardiopulmonary process. No significant interval change.
[2021-11-01 12:06] LABS: SARS-COV-2 RT PCR POSITIVE (NEGATIVE)
--- NOTE | 2021-11-01 12:58 | ER ---
Nurse's Notes [facility] Name: Adrian Huffman Age: 41 yrs Sex: Male : 1980 Arrival Date: 11/01/2021 Time: 09:57 Bed 9 Private MD: Diagnosis: SARS-associated coronavirus as the cause of diseases classified elsewhere Presentation: 11/01 10:08 Chief complaint: Patient states: chest, back pain began last night; states fever, cough vg1 and chills as well. Coronavirus screen: Vaccine status: Patient reports being unvaccinated. Client denies travel out of the [place] in the last 14 days. Client presents with at least one sign or symptom that may indicate coronavirus-19. Standard/surgical mask placed on the client. Provider contacted for isolation considerations. Ebola Screen: Patient negative for fever greater than or equal to 101.5 degrees Fahrenheit, and additional compatible Ebola Virus Disease symptoms. 10:08 Method Of Arrival: Ambulatory vg1 10:15 Initial Sepsis Screen: Does the patient meet any 2 criteria? RR > 20 per min. HR > 90 vg1 bpm. Yes Does the patient have a suspected source of infection? No. Patient's initial sepsis screen is negative. Risk Assessment: Do you want to hurt yourself or someone else? Patient reports no desire to harm self or others. Onset of symptoms was October 31, 2021. 10:15 Acuity: KELLY 3 vg1 Triage Assessment: 10:16 General: Appears in no apparent distress. uncomfortable, Behavior is calm, cooperative. vg1 Pain: Complains of pain in back and head Pain currently is 10 out of 10 on a pain scale. Cardiovascular: Patient's skin is warm and dry. Historical: - Allergies: 10:16 NKA; vg1 - PMHx: 10:16 Ulcers; vg1 - Immunization history:: Client reports having NOT received the Covid vaccine. - Social history:: Smoking status: Patient denies any tobacco usage or history of. Vital Signs: 10:08 BP 125 / 93; Pulse 117; Resp 24; Temp 100.6; Pulse Ox 99% ; Weight 83.91 kg; Height 5 vg1 ft. 6 in. (167.64 cm); Pain 8/10; 13:19 BP 138 / 97; Pulse 101; Resp 19; Temp 99.6; Pulse Ox 98% ; jl7 10:08 Body Mass Index 29.86 (83.91 kg, 167.64 cm) vg1 ED Course: 09:57 Patient arrived in ED. as 10:15 Michel Centeno PA is PHCP. cp 10:15 Shan Gonzalez MD is Attending Physician. cp 10:16 Triage completed. vg1 10:20 Arm band placed on. EKG completed in triage. Results shown to MD. Antipyretics given vg1 from triage as ordered by an ER provider. 10:20 COVID swab sent to lab. Flu and/or RSV swab sent to lab. Strep swab sent to lab. vg1 11:15 Chest Pa And Lat (2 Views) XRAY In Process Unspecified. EDMS 12:38 Lin Awan, RN is Primary Nurse. jl7 13:20 Patient did not have IV access during this emergency room visit. jl7 Administered Medications: 10:20 Drug: Tylenol 1000 mg Route: PO; vg1 Outcome: 12:58 Discharge ordered by MD. cp 13:20 Discharged to home ambulatory. jl7 13:20 Condition: stable 13:20 Discharge instructions given to patient, Instructed on discharge instructions, follow up and referral plans. medication usage, Demonstrated understanding of instructions, follow-up care, medications, Prescriptions given X 2. 13:20 Patient left the ED. jl7 Signatures: Dispatcher [employer] EDMS Tessa Leach as Michel Centeno PA PA cp Leal, Jahala, RN RN jl7 Kari Marsh RN RN vg1
--- NOTE | 2021-11-01 12:58 | EDPHYS ---
Physician Documentation [facility] Name: Adrian Huffman Age: 41 yrs Sex: Male : 1980 Arrival Date: 11/01/2021 Time: 09:57 Bed 9 Private MD: ED Physician Shan Gonzalez HPI: 11/01 10:20 This 41 yrs old Male presents to ER via Ambulatory with complaints of Chest cp Pain, Shortness Of Breath. 10:20 The patient or guardian reports cough, that is intermittent, shortness of breath and cp chest pain with cough. 10:20 Onset: The symptoms/episode began/occurred this morning. Associated signs and symptoms: cp Pertinent positives: fever, sore throat, Pertinent negatives: diarrhea, vomiting. Severity of symptoms: in the emergency department the symptoms are unchanged despite home interventions. Historical: - Allergies: 10:16 NKA; vg1 - PMHx: 10:16 Ulcers; vg1 - Immunization history:: Client reports having NOT received the Covid vaccine. - Social history:: Smoking status: Patient denies any tobacco usage or history of. ROS: 10:25 Constitutional: Positive for body aches, chills, fever. cp 10:25 Eyes: Negative for injury, pain, redness, and discharge. cp 10:25 ENT: Positive for sore throat, Negative for drainage from ear(s), ear pain, difficulty swallowing, difficulty handling secretions. 10:25 Cardiovascular: Positive for chest pain, with cough. 10:25 Respiratory: Positive for cough, "sounds productive", shortness of breath, Negative for wheezing. 10:25 Abdomen/GI: Negative for abdominal pain, nausea, vomiting, and diarrhea. 10:25 Neuro: Negative for altered mental status, dizziness, weakness. Exam: 10:16 ECG was reviewed by the Attending Physician. cp 10:28 Constitutional: The patient appears in no acute distress, alert, awake, cp non-diaphoretic, non-toxic, well developed, well nourished, febrile. 10:28 Head/Face: Normocephalic, atraumatic. cp 10:28 Eyes: Periorbital structures: appear normal, Conjunctiva: normal, no exudate, no injection, Lids and lashes: appear normal, bilaterally. 10:28 ENT: External ear(s): are unremarkable, Ear canal(s): are normal, clear, TM's: dullness, bilaterally, Nose: is normal, Mouth: Lips: moist, Oral mucosa: pink and intact, moist, Posterior pharynx: Airway: no evidence of obstruction, patent. 10:28 Neck: ROM/movement: is normal, is supple, no meningismus, no nuchal rigidity. 10:28 Chest/axilla: Inspection: normal, Palpation: is normal, no crepitus, no tenderness. 10:28 Cardiovascular: Rate: tachycardic, Rhythm: regular, Edema: is not appreciated, JVD: is not appreciated. 10:28 Respiratory: the patient does not display signs of respiratory distress, Respirations: normal, no use of accessory muscles, no retractions, labored breathing, is not present, Breath sounds: are clear throughout, no decreased breath sounds, no stridor, no wheezing. 10:28 Abdomen/GI: Inspection: abdomen appears normal, Palpation: abdomen is soft and non-tender, in all quadrants. 10:28 Back: pain, that is mild, diffuse, ROM is normal. cp 10:28 Neuro: Orientation: to person, place \\T\\ time. Mentation: is normal, Motor: moves all cp fours, strength is normal, Sensation: is normal. Vital Signs: 10:08 BP 125 / 93; Pulse 117; Resp 24; Temp 100.6; Pulse Ox 99% ; Weight 83.91 kg; Height 5 vg1 ft. 6 in. (167.64 cm); Pain 8/10; 13:19 BP 138 / 97; Pulse 101; Resp 19; Temp 99.6; Pulse Ox 98% ; jl7 10:08 Body Mass Index 29.86 (83.91 kg, 167.64 cm) vg1 MDM: 12:36 Patient medically screened. cp 12:58 Data reviewed: vital signs, nurses notes, lab test result(s), radiologic studies, plain cp films. 12:58 Differential diagnosis: bronchitis, flu, COVID-19, pneumonia. Test interpretation: by ED physician or midlevel provider: plain radiologic studies. Counseling: I had a detailed discussion with the patient and/or guardian regarding: the historical points, exam findings, and any diagnostic results supporting the discharge/admit diagnosis, lab results, radiology results, to return to the emergency department if symptoms worsen or persist or if there are any questions or concerns that arise at home. Response to treatment: the patient's symptoms have mildly improved after treatment, VSS. Patient appears non-toxic and no signs of respiratory distress. Will discharge to home for continued monitoring. 11/01 10:15 Order name: COVID-19/FLU A+B (Document "Date of Onset" if Symptomatic); Complete Time: vg1 12:37 11/01 12:37 Interpretation: SARSCOV2 RT PCR POSITIVE; Reviewed. cp 11/01 10:15 Order name: Strep; Complete Time: 12:37 vg1 11/01 10:15 Order name: Chest Pa And Lat (2 Views) XRAY; Complete Time: 12:37 vg1 11/01 11:31 Order name: Throat Culture EDMS EC:16 Rate is 124 beats/min. Rhythm is regular. [place] interval is normal. QRS interval is cp normal. QT interval is normal. Interpreted by me. Reviewed by me. Administered Medications: 10:20 Drug: Tylenol 1000 mg Route: PO; vg1 Disposition: 14:23 Co-signature as Attending Physician, Shan Gonzalez MD I agree with the assessment and kdr plan of care. Disposition Summary: 11/01/21 12:58 Discharge Ordered Location: Home cp Problem: new cp Symptoms: have improved cp Condition: Stable cp Diagnosis - SARS-associated coronavirus as the cause of diseases classified elsewhere cp Followup: cp - With: Private Physician - When: 2 - 3 days - Reason: Worsening of condition Discharge Instructions: - Discharge Summary Sheet cp - COVID-19 cp - Things to Know about the COVID-19 Pandemic - [facility] cp - 10 Things You Can Do to Manage Your COVID-19 Symptoms at Home - [facility] cp - COVID-19: Quarantine vs. Isolation - [facility] cp - Prevent the Spread of COVID-19 if You Are Sick - [facility] cp Forms: - Medication Reconciliation Form cp - Thank You Letter cp - Antibiotic Education cp - Prescription Opioid Use cp Prescriptions: - Ibuprofen 800 mg Oral Tablet - take 1 tablet by ORAL route every 8 hours As needed take with food; 30 tablet; cp Refills: 0, Product Selection Permitted - Tessalon Perles 100 mg Oral Capsule - take 2 capsule by ORAL route every 8 hours As needed; 30 capsule; Refills: 0, cp Product Selection Permitted Signatures: Dispatcher [employer] EDKY Olivatger, Shan, MD MD kdr Page, Michel, PA PA cp Maximo, Kari, RN RN vg1
[2021-11-01 13:32] VITALS: BP 138/97; TEMP 99.6; O2SAT 98
== END 2021-11-01 13:20 | disposition home or self-care (01) ==
LOC: ER 09:56
DX: U07.1 COVID-19 (principal)
CPT/HCPCS: 0240U; 71046; 87070; 87081; 93005; 99284

== ENCOUNTER 2022-02-22 16:19 | Emergency (ER) | payer OTHER, SELFPAY ==
--- NOTE | 2022-02-22 17:40 | RAD REPORT ---
EXAM DESCRIPTION: RAD -Hand Left 3 View - 02/22/2022 5:31 pm CLINICAL HISTORY: Left hand pain status post injury FINDINGS: No fracture or dislocation is seen. 9 millimeter foreign body lies within soft tissues of the distal aspect of the fourth distal phalanx
[2022-02-22] MEDS ORDERED: IBUPROFEN 200 MG TAB PO ONE (18:13)
[2022-02-22] MEDS ORDERED: DOXYCYCLINE 100 MG CAP PO ONE (18:16)
--- NOTE | 2022-02-22 18:39 | RAD REPORT ---
EXAM DESCRIPTION: RAD -Hand Left 3 View - 02/22/2022 6:21 pm CLINICAL HISTORY: Left hand pain status post injury FINDINGS: No fracture or dislocation is seen. Foreign body removed from the soft tissue distal aspect fourth distal phalanx
--- NOTE | 2022-02-22 18:42 | EDPHYS ---
Physician Documentation [facility] Name: Adrian Huffman Age: 41 yrs Sex: Male : 1980 Arrival Date: 02/22/2022 Time: 16:20 Bed 12 Private MD: ED Physician Rosi Jacob HPI: 02/22 17:09 This 41 yrs old Male presents to ER via Ambulatory with complaints of Finger la1 Injury. 17:09 Trauma demographics: County: The injury occurred in [place]. la1 17:09 The patient or guardian reports a puncture wound, shrimp horn. The complaints affect la1 the palmar aspect of distal phalanx of left ring finger. Context: The problem was sustained outdoors. Onset: The symptoms/episode began/occurred just prior to arrival. Modifying factors: the symptoms are aggravated by movement, dependent position. Associated signs and symptoms: Pertinent negatives: fever, numbness distally, tingling distally. Severity of symptoms: At their worst the symptoms were moderate. The patient has not experienced similar symptoms in the past. Pt was pulling up a shrimp bucket and the horn from one of the shrimp punctured his left fourth digit, believes it is still stuck in his finger. Historical: - Allergies: 16:29 NKA; ab2 - PMHx: 16:29 Ulcers; ab2 - Immunization history:: Adult Immunizations up to date. - Social history:: Smoking status: Patient denies any tobacco usage or history of. ROS: 17:11 Constitutional: Negative for fever, chills, and weight loss, Eyes: Negative for injury, la1 pain, redness, and discharge, ENT: Negative for injury, pain, and discharge, Neck: Negative for injury, pain, and swelling, Cardiovascular: Negative for chest pain, palpitations, and edema, Respiratory: Negative for shortness of breath, cough, wheezing, and pleuritic chest pain, Abdomen/GI: Negative for abdominal pain, nausea, vomiting, diarrhea, and constipation, Back: Negative for injury and pain. 17:11 Neuro: Negative for headache, weakness, numbness, tingling, and seizure. 17:11 MS/extremity: Positive for pain. 17:11 Skin: Positive for puncture, of the palmar aspect of distal phalanx of left ring finger. Exam: 17:12 Constitutional: This is a well developed, well nourished patient who is awake, alert, la1 and in no acute distress. Head/Face: Normocephalic, atraumatic. Eyes: Pupils equal round and reactive to light, extra-ocular motions intact. Lids and lashes normal. Conjunctiva and sclera are non-icteric and not injected. Cornea within normal limits. Periorbital areas with no swelling, redness, or edema. ENT: Nares patent. No nasal discharge, no septal abnormalities noted. Chest/axilla: Normal chest wall appearance and motion. Nontender with no deformity. No lesions are appreciated. Cardiovascular: Regular rate and rhythm with a normal S1 and S2 Respiratory: Lungs have equal breath sounds bilaterally, clear to auscultation Abdomen/GI: Soft, non-tender, with normal bowel sounds. Skin: Warm, dry with normal turgor. Normal color with no rashes, no lesions, and no evidence of cellulitis. Puncture wound to dorsum of the left fourth digit Vital Signs: 16:27 BP 143 / 93; Pulse 91; Resp 18; Temp 97.8; Pulse Ox 99% ; Weight 88.9 kg; Height 5 ft. ab2 7 in. (170.18 cm); Pain 9/10; 16:34 BP 139 / 91; Pulse 82; Resp 18; Pulse Ox 99% on R/A; Pain 6/10; ld1 18:13 BP 131 / 88; Pulse 81; Resp 18; Pulse Ox 100% on R/A; ld1 16:27 Body Mass Index 30.70 (88.90 kg, 170.18 cm) ab2 Procedures: 18:11 Foreign Body Removal: Shrimp horn, from the left palmar aspect of distal phalanx of la1 left ring finger, by normal saline irrigation, tweezers, The patient tolerated the removal well, approx. 1cm shrimp horn removed from finger, intact. pt is UTD on tetanus. MDM: 16:32 Patient medically screened. la1 18:35 Data reviewed: vital signs, nurses notes, radiologic studies, and as a result, I will la1 discharge patient. Data interpreted: Pulse oximetry: on room air is 100 %. Interpretation: normal. Counseling: I had a detailed discussion with the patient and/or guardian regarding: the historical points, exam findings, and any diagnostic results supporting the discharge/admit diagnosis, radiology results, the need for outpatient follow up, a hand specialist, to return to the emergency department if symptoms worsen or persist or if there are any questions or concerns that arise at home. Response to treatment: the patient's symptoms have resolved after treatment, and as a result, I will discharge patient. Special discussion: I discussed in detail with the patient the higher chance of wound infection based on his presenting history. 02/22 16:39 Order name: Hand Left 3 View XRAY; Complete Time: 17:41 la1 02/22 18:06 Order name: Hand Left 3 View XRAY la1 Administered Medications: 17:49 Drug: Lidocaine (1 %) 5 mg {Note: Administered by AMANUEL Colvin.} Route: Infiltration;ld1 18:11 Drug: Motrin (ibuprofen) 600 mg Route: PO; ld1 18:12 Follow up: Response: No adverse reaction ld1 18:12 Drug: Doxycycline 100 mg Route: PO; ld1 18:12 Follow up: Response: No adverse reaction ld1 Disposition Summary: 02/22/22 18:38 Discharge Ordered Location: Home la1 Problem: new la1 Symptoms: have improved la1 Condition: Stable la1 Diagnosis - Laceration with foreign body of left ring finger without damage to nail, initial la1 encounter Followup: la1 - With: Antoine Benson MD - When: 5 - 6 days - Reason: Wound Recheck, Recheck today's complaints, Re-evaluation by your physician Followup: la1 - With: Emergency Department - When: As needed - Reason: Worsening of condition Discharge Instructions: - Discharge Summary Sheet la1 - Puncture Wound la1 - Laceration Care, Adult, [id number] la1 - Wound Care, Adult la1 Forms: - Work release form la1 - Medication Reconciliation Form la1 - Thank You Letter la1 - Antibiotic Education la1 Prescriptions: - Doxycycline Hyclate 100 mg Oral Tablet - take 1 tablet by ORAL route every 12 hours; 20 tablet; Refills: 0, Product la1 Selection Permitted Signatures: Dispatcher [employer] Elfego Griggs FNP-C AMANUEL-Cla1 Rebecca Yeboah RN RN ld1 Eugene Tubbs
--- NOTE | 2022-02-22 18:42 | ER ---
Nurse's Notes [facility] Name: Adrian Huffman Age: 41 yrs Sex: Male : 1980 Arrival Date: 02/22/2022 Time: 16:20 Bed 12 Private MD: Diagnosis: Laceration with foreign body of left ring finger without damage to nail, initial encounter Presentation: 02/22 16:27 Chief complaint: Spouse and/or significant other states: He cut his finger on a shrimp ab2 bucket. Pt has 2 puncture wounds to ring finger of left hand. Coronavirus screen: Vaccine status: Patient reports being unvaccinated. Client denies travel out of the [place] in the last 14 days. At this time, the client does not indicate any symptoms associated with coronavirus-19. Ebola Screen: Patient negative for fever greater than or equal to 101.5 degrees Fahrenheit, and additional compatible Ebola Virus Disease symptoms Patient denies exposure to infectious person. Patient denies travel to an Ebola-affected area in the 21 days before illness onset. No symptoms or risks identified at this time. Initial Sepsis Screen: Does the patient meet any 2 criteria? No. Patient's initial sepsis screen is negative. Does the patient have a suspected source of infection? No. Patient's initial sepsis screen is negative. Risk Assessment: Do you want to hurt yourself or someone else? Patient reports no desire to harm self or others. Onset of symptoms is unknown. 16:27 Method Of Arrival: Ambulatory ab2 16:27 Acuity: KELLY 4 ab2 Triage Assessment: 16:29 General: Appears in no apparent distress. uncomfortable, Behavior is calm, cooperative, ab2 appropriate for age. Pain: Complains of pain in palmar aspect of distal phalanx of left ring finger. Musculoskeletal: Reports pain in left hand. Injury Description: Puncture sustained to palmar aspect of distal phalanx of left ring finger. Historical: - Allergies: 16:29 NKA; ab2 - PMHx: 16:29 Ulcers; ab2 - Immunization history:: Adult Immunizations up to date. - Social history:: Smoking status: Patient denies any tobacco usage or history of. Screenin:34 Abuse screen: Denies threats or abuse. Denies injuries from another. Nutritional ld1 screening: No deficits noted. Tuberculosis screening: No symptoms or risk factors identified. Fall Risk None identified. Assessment: 16:34 General: Appears in no apparent distress. comfortable, Behavior is calm, cooperative, ld1 appropriate for age. Pain: Complains of pain in left hand Pain does not radiate. Neuro: Level of Consciousness is awake, alert, obeys commands, Oriented to person, place, time, situation. Cardiovascular: Capillary refill < 3 seconds Patient's skin is warm and dry. Respiratory: Airway is patent Respiratory effort is even, unlabored. GI: Abdomen is flat, non-distended. : No signs and/or symptoms were reported regarding the genitourinary system. EENT: No signs and/or symptoms were reported regarding the EENT system. Derm: No signs and/or symptoms reported regarding the dermatologic system. Musculoskeletal: No signs and/or symptoms reported regarding the musculoskeletal system. Injury Description: Laceration sustained to left hand. Vital Signs: 16:27 BP 143 / 93; Pulse 91; Resp 18; Temp 97.8; Pulse Ox 99% ; Weight 88.9 kg; Height 5 ft. ab2 7 in. (170.18 cm); Pain 9/10; 16:34 BP 139 / 91; Pulse 82; Resp 18; Pulse Ox 99% on R/A; Pain 6/10; ld1 18:13 BP 131 / 88; Pulse 81; Resp 18; Pulse Ox 100% on R/A; ld1 16:27 Body Mass Index 30.70 (88.90 kg, 170.18 cm) ab2 ED Course: 16:20 Patient arrived in ED. am2 16:29 Triage completed. ab2 16:29 Arm band placed on right wrist. ab2 16:30 Elfego Parish FNP-C is PHCP. la1 16:30 Rosi Jacob MD is Attending Physician. la1 16:34 Rebecca Yeboah, KEYANA is Primary Nurse. ld1 16:34 Patient has correct armband on for positive identification. Bed in low position. Call ld1 light in reach. Side rails up X2. Pulse ox on. NIBP on. Door closed. Noise minimized. Warm blanket given. 17:33 Hand Left 3 View XRAY In Process Unspecified. EDMS 18:23 Hand Left 3 View XRAY In Process Unspecified. EDMS 18:36 Antoine Benson MD is Referral Physician. la1 18:48 No provider procedures requiring assistance completed. Patient did not have IV access ld1 during this emergency room visit. Administered Medications: 17:49 Drug: Lidocaine (1 %) 5 mg {Note: Administered by AMANUEL Colvin.} Route: Infiltration;ld1 18:11 Drug: Motrin (ibuprofen) 600 mg Route: PO; ld1 18:12 Follow up: Response: No adverse reaction ld1 18:12 Drug: Doxycycline 100 mg Route: PO; ld1 18:12 Follow up: Response: No adverse reaction ld1 Outcome: 18:38 Discharge ordered by MD. la1 18:48 Discharged to home ambulatory, with family. ld1 18:48 Condition: stable 18:48 Discharge instructions given to patient, family, Instructed on discharge instructions, follow up and referral plans. medication usage, Demonstrated understanding of instructions, follow-up care, medications. 18:49 Patient left the ED. ld1 Signatures: Dispatcher [employer] EDMS Elfego Parish, AMANUEL-C STEELER-Cla1 Benita Gordillo am2 Rebecca Yeboah, RN RN ld1 Eugene Tubbs2
[2022-02-22 18:54] VITALS: TEMP 97.8
[2022-02-22 18:57] VITALS: BP 131/88; O2SAT 100
== END 2022-02-22 18:49 | disposition home or self-care (01) ==
LOC: ER 16:19
DX: S61.225A Laceration with foreign body of left ring finger without damage to nail, initial encounter (principal); W26.8XXA Contact with other sharp object(s), not elsewhere classified, initial encounter; Y93.9 Activity, unspecified; Y92.9 Unspecified place or not applicable
CPT/HCPCS: 99283

== ENCOUNTER 2022-06-30 13:16 | Inpatient (IN) | payer SELFPAY ==
--- OUTSIDE RECORDS SUMMARY | 2022-06-30 13:18 | XMS REPORT | Continuity of Care Document ---
:1980 Author Organization [facility] t Address [address] [place] [address] Care Team Providers Name Role Phone Unavailable Unavailable Unavailable Problems This patient has no known problems. Allergies, Adverse Reactions, Alerts This patient has no known allergies or adverse reactions. Medications This patient has no known medications. Procedures This patient has no known procedures. Encounters Start End Encounter Admission Attending Care Care Encounter Source Date/Time Date/Time Type Type Clinicians Facility Department ID 2020-06-22 2020-06-22 Outpatient [facility] PDPFEFA [facility] 00:00:00 00:00:00 [facility]-[id number] Results This patient has no known results.
[2022-06-30] MEDS ORDERED: MORPHINE 4 MG/ML SYR ONE ×2 (14:05→17:02)
[2022-06-30] MEDS ORDERED: ONDANSETRON 4 MG/2 ML VIAL ONE (14:05)
[2022-06-30] MEDS ORDERED: LIDOCAINE 1% W/EPI 1:100,000 MDV 50 ML VIAL ONE (14:09)
--- NOTE | 2022-06-30 14:15 | RAD REPORT ---
EXAM DESCRIPTION: RAD - Chest Single View - 06/30/2022 2:04 pm CLINICAL HISTORY: CHEST PAIN COMPARISON: Chest Pa And Lat (2 Views) dated 11/01/2021; Chest Single View dated 05/16/2020; Chest Si ngle View dated 05/10/2020; Abdomen Acute Series dated 06/11/2018 FINDINGS: Lines: None. Lungs: No evidence of edema or pneumonia. Atelectasis as result of the large right-sided pneumothorax . Pleural: Large right-sided pneumothorax. Cardiac: The heart size is within normal limits. Bones: No acute fractures. Other: IMPRESSION: Large right-sided pneumothorax. Discussed with Nimco Christie by Dr. Berrios at 1411 on 06/30/22
[2022-06-30 14:24] LABS: Absolute Lymphocytes (CBC) 1.5 K/uL (0.7-4.9); Hematocrit 51.1 % (39.6-49.0); Lymphocytes % 20.4 % (15.3-44.8); MCV 89.3 fL (80-100); RBC Red Blood Cell Count 5.72 M/uL (4.33-5.43)
--- NOTE | 2022-06-30 14:30 | ER ---
Nurse's Notes [facility] Name: Adrian Huffman Age: 42 yrs Sex: Male : 1980 Arrival Date: 06/30/2022 Time: 13:17 Bed 3 Private MD: Diagnosis: Primary spontaneous pneumothorax Presentation: 06/30 13:19 Chief complaint: SOB, pain with breathing, chest pain that radiates to back, and nausea hb since this morning. Coronavirus screen: Client presents with at least one sign or symptom that may indicate coronavirus-19. Standard/surgical mask placed on the client. Provider contacted for isolation considerations. Ebola Screen: No symptoms or risks identified at this time. Risk Assessment: Do you want to hurt yourself or someone else? Patient reports no desire to harm self or others. Onset of symptoms was June 30, 2022. 13:19 Method Of Arrival: Ambulatory hb 13:19 Acuity: KELLY 3 hb 13:25 Initial Sepsis Screen: Does the patient meet any 2 criteria? No. Patient's initial ph sepsis screen is negative. Does the patient have a suspected source of infection? No. Patient's initial sepsis screen is negative. Historical: - Allergies: 13:20 NKA; hb - PMHx: 13:20 Ulcers; hb - Immunization history:: Client reports having NOT received the Covid vaccine. - Social history:: Smoking status: Patient denies any tobacco usage or history of. Screenin:24 Abuse screen: Denies threats or abuse. Denies injuries from another. Nutritional ph screening: No deficits noted. Tuberculosis screening: No symptoms or risk factors identified. Fall Risk None identified. Assessment: 13:50 General: Appears in no apparent distress. uncomfortable, Behavior is cooperative, ph appropriate for age. Pain: Complains of pain in anterior aspect of right upper chest Pain does not radiate. Pain began suddenly. Neuro: Level of Consciousness is awake, alert, obeys commands, Oriented to person, place, time, situation. Cardiovascular: Reports chest pain, shortness of breath, Denies nausea, palpitations, Chest pain quality is sharp, is located in right anterior chest wall. Respiratory: Reports shortness of breath cough that is Airway is patent Respiratory effort is even, unlabored. Derm: Skin is healthy with good turgor, Skin is pink, warm \T\ dry. Musculoskeletal: Circulation, motion, and sensation intact. Range of motion: intact in all extremities. 14:15 Reassessment: Patient appears in no apparent distress at this time. Dr Dumont at bedside for chest tube placement, consent for signed by pt. 15:30 Reassessment: Patient appears in no apparent distress at this time. Patient and/or ph family updated on plan of care and expected duration. Pain level reassessed. Patient is alert, oriented x 3, equal unlabored respirations, skin warm/dry/pink. 16:45 Reassessment: Patient appears in no apparent distress at this time. Patient and/or ph family updated on plan of care and expected duration. Pain level reassessed. NRB mask removed and pt placed on 2L NC, after nurse left bedside pt began to c/o pain to ZENON chest and SOB, ERP provider notified and repeat CXR ordered, pt placed back on NRB mask. 17:19 Reassessment: Patient appears in no apparent distress at this time. Patient and/or ph family updated on plan of care and expected duration. Pain level reassessed. Pt reports that pain has improved after IV pain medication. 18:28 Reassessment: Attempted to call report, corporate secretary stated that report would need to be ph called after shift change because it was later than 1800. 19:47 Reassessment: report called to Bella RIDLEY for room 413. Pt is A\T\O x 4, medicated for pain bb of 8/10 to right side of chest see [facility]. Vital Signs: 13:19 BP 153 / 106; Pulse 107; Resp 24; Temp 97.7(TE); Pulse Ox 98% on R/A; Pain 10/10; hb 14:30 BP 151 / 113; Pulse 84; Resp 18; Pulse Ox 99% on Non-rebreather mask; ph 15:00 BP 135 / 91; Pulse 96; Resp 18; Pulse Ox 99% on Non-rebreather mask; ph 15:30 BP 145 / 93; Pulse 93; Resp 18; Pulse Ox 99% on Non-rebreather mask; ph 16:00 BP 143 / 102; Pulse 82; Resp 18; Pulse Ox 99% on Non-rebreather mask; ph 16:30 BP 131 / 96; Pulse 87; Resp 18; Pulse Ox 100% on Non-rebreather mask; ph 17:00 BP 133 / 94; Pulse 70; Resp 18; Pulse Ox 100% on Non-rebreather mask; ph 17:32 BP 137 / 105; Pulse 86; Resp 18; Pulse Ox 100% on Non-rebreather mask; ph 18:22 BP 148 / 97; Pulse 77; Resp 16; Pulse Ox 98% on 2 lpm NC; ph ED Course: 13:17 Patient arrived in ED. as 13:20 Janki Christie FNP-C [facility]. kb 13:20 Rufus Aragon MD is Attending Physician. kb 13:20 Triage completed. hb 13:20 Arm band placed on. hb 13:22 Amy Loomis, KEYANA is Primary Nurse. ph 13:24 Patient has correct armband on for positive identification. Bed in low position. Call ph light in reach. Side rails up X 1. compliance monitor on. Pulse ox on. NIBP on. Door closed. Noise minimized. Warm blanket given. 13:45 Initial lab(s) drawn, by ED staff, sent to lab. Inserted saline lock: 22 gauge in right ph antecubital area, using aseptic technique. Blood collected. 14:00 Oxygen administration via nasal cannula \T\ 2L/min. ph 14:06 XRAY Chest (1 view) In Process Unspecified. EDMS 14:20 Assist provider with chest tube insertion with 6 colombian [id number], per Dr Dumont in right lateral chest wall. Tray was set up. Attached to [employer]. Chest tube inserted by Jared Dumont MD Placement verified by CXR, fluctuation of fluid, Dressed with Vaseline gauze, foam tape, 4X4s, Patient tolerated well. 14:28 Sohail Wilkins is Hospitalizing Provider. kb 14:33 CXR XRAY In Process Unspecified. EDMS 17:37 Patient admitted, IV remains in place. ph 17:48 No provider procedures requiring assistance completed. ph Administered Medications: 14:13 Drug: Zofran (Ondansetron) 4 mg Route: IVP; Site: right antecubital; ph 19:21 Follow up: Response: No adverse reaction ph 14:15 Drug: morphine 4 mg Route: IVP; Infused Over: 4 mins; Site: right antecubital; ph 19:21 Follow up: Response: No adverse reaction ph 16:48 Drug: morphine 4 mg Route: IVP; Infused Over: 4 mins; Site: right antecubital; ph 19:21 Follow up: Response: No adverse reaction ph Medication: 17:48 VIS not applicable for this client. ph Outcome: 14:29 Decision to Hospitalize by Provider. kb 20:15 Patient left the ED. bb Signatures: Dispatcher [employer] EDMS Janki Christie, [employer]-Tessa Del Valle Brenda, RN RN bb Amy Loomis RN RN Maru Wilkerson RN RN Corrections: (The following items were deleted from the chart) 17:26 17:19 Reassessment: Patient appears in no apparent distress at this time. Patient ph and/or family updated on plan of care and expected duration. Pain level reassessed. ph 17:48 14:00 Inserted saline lock: 22 gauge in right antecubital area, using aseptic ph technique. Blood collected. ph 17:48 14:00 Initial lab(s) drawn, by ED staff, sent to lab. ph ph
--- NOTE | 2022-06-30 14:30 | EDPHYS ---
Physician Documentation [facility] Name: Adrian Huffman Age: 42 yrs Sex: Male : 1980 Arrival Date: 06/30/2022 Time: 13:17 Bed 3 Private MD: ED Physician Rufus Aragon HPI: 06/30 14:31 This 42 yrs old Male presents to ER via Ambulatory with complaints of Chest kb Pain. 14:31 The patient or guardian reports chest pain that is located primarily in the anterior kb chest wall, right. Onset: this morning. The pain does not radiate. Associated signs and symptoms: Pertinent positives: cough, shortness of breath. The chest pain is described as sharp. Duration: The patient or guardian reports a single episode, that is still ongoing. Modifying factors: The symptoms are alleviated by nothing. the symptoms are aggravated by cough, deep breath. Severity of pain: At its worst the pain was severe in the emergency department the pain is unchanged. The patient has not experienced similar symptoms in the past. The patient has not recently seen a physician. Patient reports he woke up this morning, got into a coughing fit then started having severe chest pain and shortness of breath. Denies recent illness, trauma.. Historical: - Allergies: 13:20 NKA; hb - PMHx: 13:20 Ulcers; hb - Immunization history:: Client reports having NOT received the Covid vaccine. - Social history:: Smoking status: Patient denies any tobacco usage or history of. ROS: 13:21 Constitutional: Negative for fever, chills, and weight loss. kb 13:21 Cardiovascular: Positive for chest pain, Negative for edema, orthopnea, palpitations, paroxysmal nocturnal dyspnea. 13:21 Respiratory: Positive for cough, pleurisy, shortness of breath. 13:21 All other systems are negative. Exam: 13:21 Head/Face: Normocephalic, atraumatic. ENT: Moist Mucous membranes Cardiovascular: kb Regular rate and rhythm with a normal S1 and S2. No gallops, murmurs, or rubs. No pulse deficits. Abdomen/GI: Soft, non-tender. No distention Skin: Warm, dry with normal turgor. Normal color. MS/ Extremity: Pulses equal, no cyanosis. Neurovascular intact. Full, normal range of motion. Neuro: Awake and alert, GCS 15, oriented to person, place, time, and situation. Moves all extremities. Normal gait. Psych: Awake, alert, with orientation to person, place and time. Behavior, mood, and affect are within normal limits. 13:21 Respiratory: mild respiratory distress is noted, Respirations: normal, Breath sounds: decreased breath sounds, that are moderate, are heard in the right upper lobe, right middle lobe, right lower lobe, left posterior upper lobe and left posterior lower lobe. 13:33 ECG was reviewed by the Attending Physician. kb 14:32 Constitutional: The patient appears alert, awake, in obvious pain. kb Vital Signs: 13:19 BP 153 / 106; Pulse 107; Resp 24; Temp 97.7(TE); Pulse Ox 98% on R/A; Pain 10/10; hb 14:30 BP 151 / 113; Pulse 84; Resp 18; Pulse Ox 99% on Non-rebreather mask; ph 15:00 BP 135 / 91; Pulse 96; Resp 18; Pulse Ox 99% on Non-rebreather mask; ph 15:30 BP 145 / 93; Pulse 93; Resp 18; Pulse Ox 99% on Non-rebreather mask; ph 16:00 BP 143 / 102; Pulse 82; Resp 18; Pulse Ox 99% on Non-rebreather mask; ph 16:30 BP 131 / 96; Pulse 87; Resp 18; Pulse Ox 100% on Non-rebreather mask; ph 17:00 BP 133 / 94; Pulse 70; Resp 18; Pulse Ox 100% on Non-rebreather mask; ph 17:32 BP 137 / 105; Pulse 86; Resp 18; Pulse Ox 100% on Non-rebreather mask; ph 18:22 BP 148 / 97; Pulse 77; Resp 16; Pulse Ox 98% on 2 lpm NC; ph MDM: 13:20 Patient medically screened. kb 13:24 Data reviewed: vital signs, nurses notes. Data interpreted: Pulse oximetry: on room air kb is 98 %. Interpretation: normal. 13:44 Physician consultation: Jared Dumont MD was contacted at 13:44, regarding consult, kb patient's condition, and will see patient in ED, immediately. 14:15 Physician consultation: Jared Dumont MD in the emergency department to see patient at kb 14:15, at bedside for chest tube placement. 14:27 ED course: Dr Dumont requests daily chest x-ray . kb 14:30 Counseling: I had a detailed discussion with the patient and/or guardian regarding: the kb historical points, exam findings, and any diagnostic results supporting the discharge/admit diagnosis, lab results, radiology results, the need for further work-up and treatment in the hospital. Physician consultation: Soahil Wilkins was contacted at 14:30, regarding admission, to the telemetry unit. patient's condition, and will see patient in ED. 14:33 ED course: Chest tube placed by Dr. Dumont. Repeat chest x-ray shows chest tube in kb place and resolution of pneumothorax. 06/30 13:20 Order name: Basic Metabolic Panel; Complete Time: 15:18 kb 06/30 13:20 Order name: CBC with Diff; Complete Time: 14:27 kb 06/30 13:20 Order name: D-Dimer; Complete Time: 14:30 kb 06/30 13:20 Order name: LFT's; Complete Time: 15:18 kb 06/30 13:20 Order name: Magnesium; Complete Time: 15:18 kb 06/30 13:20 Order name: NT PRO-BNP; Complete Time: 15:18 kb 06/30 13:20 Order name: Troponin HS; Complete Time: 15:18 kb 06/30 13:20 Order name: XRAY Chest (1 view); Complete Time: 14:20 kb 06/30 13:34 Order name: COVID-19 SARS RT PCR (Document "Date of Onset" if Symptomatic); Complete kb Time: 18:23 06/30 14:13 Order name: CXR XRAY; Complete Time: 14:52 eb 06/30 16:50 Order name: CXR XRAY eb 06/30 18:53 Order name: RAD; Complete Time: 18:57 EDMS 06/30 13:20 Order name: EKG; Complete Time: 13:21 kb 06/30 13:20 Order name: Cardiac monitoring; Complete Time: 13:31 kb 06/30 13:20 Order name: EKG - Nurse/Tech; Complete Time: 13:31 kb 06/30 13:20 Order name: IV Saline Lock; Complete Time: 14:48 kb 06/30 13:20 Order name: Labs collected and sent; Complete Time: 14:48 kb 06/30 13:20 Order name: O2 Per Protocol; Complete Time: 14:48 kb 06/30 13:20 Order name: O2 Sat Monitoring; Complete Time: 14:48 kb EC: Rate is 101 beats/min. Rhythm is regular. Right axis deviation noted. NC interval is kb normal at 138 msec. QRS interval is normal at 88 msec. QT interval is normal at 427 msec. Administered Medications: 14:13 Drug: Zofran (Ondansetron) 4 mg Route: IVP; Site: right antecubital; ph 19:21 Follow up: Response: No adverse reaction ph 14:15 Drug: morphine 4 mg Route: IVP; Infused Over: 4 mins; Site: right antecubital; ph 19:21 Follow up: Response: No adverse reaction ph 16:48 Drug: morphine 4 mg Route: IVP; Infused Over: 4 mins; Site: right antecubital; ph 19:21 Follow up: Response: No adverse reaction ph Disposition: 07/01 17:25 Co-signature as Attending Physician, Rufus Aragon MD. rn Disposition Summary: 06/30/22 14:29 Hospitalization Ordered Hospitalization Status: Inpatient Admission kb Provider: Sohail Wilkins Location: Telemetry/MedSurg (Inpatient) kb Condition: Stable kb Problem: new kb Symptoms: have improved kb Bed/Room Type: Standard Room Assignment: [facility](06/30/22 18:17) Diagnosis - Primary spontaneous pneumothorax kb Forms: - Medication Reconciliation Form kb - SBAR form kb Signatures: Dispatcher [employer] Janki Thomas FNP-C PAYROLL AND BENEFITS ASSISTANT-Sydni Garcia RN RN dw Nieto, Roman, MD MD rn Hall, Patricia, RN RN Maru Wilkerson RN RN Jayashree Lundberg Corrections: (The following items were deleted from the chart) 06/30 14:33 13:21 Constitutional: This is a well developed, well nourished patient who is awake, kb alert, and in no acute distress. Head/Face: Normocephalic, atraumatic. ENT: Moist Mucous membranes Cardiovascular: Regular rate and rhythm with a normal S1 and S2. No gallops, murmurs, or rubs. No pulse deficits. Abdomen/GI: Soft, non-tender. No distention Skin: Warm, dry with normal turgor. Normal color. MS/ Extremity: Pulses equal, no cyanosis. Neurovascular intact. Full, normal range of motion. Neuro: Awake and alert, GCS 15, oriented to person, place, time, and situation. Moves all extremities. Normal gait. Psych: Awake, alert, with orientation to person, place and time. Behavior, mood, and affect are within normal limits. kb 14:52 14:33 ED course: Chest tube placed by Dr. Dumont. Repeat chest x-ray shows chest tube kb in place and inflated lung.. kb 16:59 14:29 kb eb 17:06 16:59 413 eb eb 18:17 17:06 eb dw
[2022-06-30 14:41] LABS: Albumin 4.1 g/dL (3.4-5.0); Bilirubin Direct 0.1 mg/dL (0-0.2); Bilirubin Total 0.6 mg/dL (0.2-1.0); Potassium 3.7 mmol/L (3.5-5.1); Protein, Total 8.1 g/dL (6.4-8.2); Troponin High Sensitivity 38.6 pg/mL (<58.9)
--- NOTE | 2022-06-30 14:49 | RAD REPORT ---
EXAM DESCRIPTION: RAD - Chest Single View - 06/30/2022 2:31 pm CLINICAL HISTORY: chest tube placement COMPARISON: Chest Single View dated 06/30/2022; Chest Pa And Lat (2 Views) dated 11/01/2021; Chest Si ngle View dated 05/16/2020; Chest Single View dated 05/10/2020 FINDINGS: Interval placement right-sided chest tube. The pneumothorax has nearly completely resolved . IMPRESSION: Near complete resolution of the right sided pneumothorax with chest tube in place.
--- NOTE | 2022-06-30 15:28 | P.HP ---
Certification for Inpatient Patient admitted to: Inpatient With expected LOS: >2 Midnights Practitioner: I am a practitioner with admitting privileges, knowledge of patient current condition, hospital course, and medical plan of care. Services: Services provided to patient in accordance with Admission requirements found in Title 42 Section 412.3 of the Code of Federal Regulations Patient History Date of Service: 06/30/22 Reason for admission: Shortness of breath History of Present Illness: 42-year-old Palestinian-speaking gentleman with no known past medical history presented to the emergency department due to sudden onset shortness of breath. Symptoms preceded by coughing spell. Patient also reported right-sided chest pain with coughing. He denied any fever. Chest x-ray done in the emergency department demonstrated large right-sided pneumothorax. Patient was not hypoxic. General surgery Dr. Dumont was informed who placed a pigtail catheter to drain the pneumothorax. Repeat chest x-ray demonstrated almost complete resolution of the pneumothorax. Patient had a CT chest done here in 2017 which demonstrated several subpleural blebs in the upper lobes. Patient is hospitalized for further management. Allergies No Known Drug Allergies Allergy (Unverified 12/28/19 14:48) Unknown beef Allergy (Intermediate, Uncoded 12/28/19 14:48) Nausea/Vomiting Home Medications: Codeine/APAP [Tylenol W/Codeine #3 tab] 1 tab PO Q6HP PRN #20 tab 01/15/15 Ciprofloxacin HCl [Cipro 500 MG Tablet] 500 mg PO BID #14 tab 06/12/18 metroNIDAZOLE [Flagyl] 500 mg PO Q8H #21 tablet 06/12/18 predniSONE [Deltasone*] 10 mg PO DAILY #7 tab 06/12/18 - Past Medical/Surgical History Diabetic: No -: None -: Appendectomy - Family History Mother -: Diabetes - Social History Smoking Status: Never smoker Alcohol use: Yes CD- Drugs: No Caffeine use: Yes Review of Systems Other: Except as documented, all other systems reviewed and negative. Physical Examination - Physical Exam General: Alert, In no apparent distress, Oriented x3 HEENT: Atraumatic, Normocephalic, PERRLA, Mucous membr. moist/pink, EOMI, Sclerae nonicteric Neck: Supple, JVD not distended, No Thyromegaly Respiratory: Clear to auscultation bilaterally, Normal air movement, Other (Pigtail catheter-right chest) Cardiovascular: No edema, Regular rate/rhythm, Normal S1 S2, No murmurs Capillary refill: <2 Seconds Gastrointestinal: Normal bowel sounds, Soft and benign, Non-distended, No tenderness Musculoskeletal: No swelling, No tenderness Integumentary: No rashes, No cyanosis Neurological: Normal strength at 5/5 x4 extr, Cranial nerves 3-12 intact Lymphatics: No axilla or inguinal lymphadenopathy - Studies Laboratory Data (last 24 hrs) 06/30/22 13:30: WBC 7.40, Hgb 17.8, Hct 51.1 H, Plt Count 348 06/30/22 13:30: Sodium 137, Potassium 3.7, BUN 18, Creatinine 1.11, Glucose 147 H, Magnesium 2.0, Total Bilirubin 0.6, AST 50 H, ALT 44, Alkaline Phosphatase 68 Assessment and Plan - Problems (Diagnosis) (1) Primary spontaneous pneumothorax Current Visit: Yes Status: Acute - Plan Admit patient to the medical floor. Oxygen therapy Pain medication as needed. Pigtail catheter inserted by general surgery. Dr. Dumont to follow. Serial chest x-ray. Supportive measures with IV hydration. - Advance Directives Does patient have a Living Will: No Does patient have a Durable POA for Healthcare: No
--- NOTE | 2022-06-30 18:52 | RAD REPORT ---
EXAM DESCRIPTION: RAD - Chest Single View - 06/30/2022 5:57 pm CLINICAL HISTORY: increase SOB COMPARISON: Chest Single View dated 06/30/2022; Chest Single View dated 06/30/2022; Chest Pa And Lat ( 2 Views) dated 11/01/2021; Chest Single View dated 05/16/2020 FINDINGS: The right-sided pneumothorax has occurred. The pigtail catheter is slightly lower in the c hest and may have been retracted or section is been disconnected. Left lung remains clear. IMPRESSION: Enlarging moderate right-sided pneumothorax with chest tube in place. The chest tube has been retracted some though it may still be in place.
[2022-06-30] MEDS ORDERED: ACETAMINOPHEN 500 MG TAB PO PRN (19:26)
[2022-06-30] MEDS: MORPHINE 2 MG/ML SYR IV PRN (19:34)
[2022-06-30] MEDS: NA CHLORIDE 0.9% 1,000 ML IV SCH (20:54)
[2022-06-30] MEDS ORDERED: HYDROMORPHONE HCL 1 MG/ML INJ IV ONE (21:26)
[2022-07-01] MEDS: NA CHLORIDE 0.9% 1,000 ML IV SCH ×2 (06:20→15:45)
[2022-07-01 06:21] LABS: Absolute Lymphocytes (CBC) 1.6 K/uL (0.7-4.9); Hematocrit 45.2 % (39.6-49.0); Lymphocytes % 24.2 % (15.3-44.8); MCV 89.8 fL (80-100); MPV 7.3 fL (7.6-11.3); RBC Red Blood Cell Count 5.03 M/uL (4.33-5.43)
[2022-07-01 06:29] LABS: Magnesium 2.1 mg/dL (1.8-2.4); Phosphorus 3.4 mg/dL (2.5-4.9); Potassium 3.9 mmol/L (3.5-5.1)
--- NOTE | 2022-07-01 07:39 | RAD REPORT ---
EXAM DESCRIPTION: RAD - Chest Single View - 07/01/2022 6:39 am CLINICAL HISTORY: Pneumothorax s/p pigtail catheter COMPARISON: Chest Single View dated 06/30/2022; Chest Single View dated 06/30/2022; Chest Single View dated 06/30/2022; Chest Pa And Lat (2 Views) dated 11/01/2021 FINDINGS: Lines: None. Lungs: Linear opacities at the right lung base. Pleural: There is still a right-sided pneumothorax present. It is small to moderate in size. The pigt ail catheter is in a slightly higher positioning compared with prior. It overlies the right posterior fifth rib, rather than the right posterior seventh rib. Cardiac: The heart size is within normal limits. Bones: No acute fractures. Other: IMPRESSION: Small to moderate residual right-sided pneumothorax. The chest tube is in more cranial p ositioning. Linear opacities at the right lung base may reflect some residual atelectasis. The left l hitesh is clear.
[2022-07-01] MEDS: ENOXAPARIN 40 MG/0.4 ML SQ SCH (07:59)
[2022-07-01] MEDS ORDERED: POTASSIUM 25 MEQ EFFERV TAB PO ONE (09:00)
--- NOTE | 2022-07-01 12:50 | EKG ---
Test Date: 2022-06-30 Test Time: 13:33:13 Casket Assembler: LML MEASUREMENT RESULTS: Intervals: Rate: 101 KS: 138 QRSD: 88 QT: 330 QTc: 427 [place]: P: 85 KS: 138 QRS: 91 T: 78 INTERPRETIVE STATEMENTS: Sinus tachycardia Rightward axis Borderline ECG Compared to ECG 11/01/2021 10:14:58 Right-axis deviation now present Electronically Signed On 07-01-22 12:49:19 CDT by Jeff Dockery
--- NOTE | 2022-07-01 13:19 | RAD REPORT ---
EXAM DESCRIPTION: RAD - Chest Single View - 07/01/2022 1:07 pm CLINICAL HISTORY: pneumothorax COMPARISON: Chest Single View dated 07/01/2022; Chest Single View dated 06/30/2022; Chest Single View dated 06/30/2022; Chest Single View dated 06/30/2022 FINDINGS: Lines: None. Lungs: No evidence of edema or pneumonia. Pleural: Small residual right apical pneumothorax. Chest tube in place . Cardiac: The heart size is within normal limits. Bones: No acute fractures. Other: IMPRESSION: Small residual right apical pneumothorax with chest tube in place. The lungs are otherwi se clear.
[2022-07-01] MEDS: HYDROCODONE/APAP 5/325 MG TAB PO PRN (13:23)
--- NOTE | 2022-07-01 14:04 | P.PN ---
Subjective Date of Service: 07/01/22 Chief Complaint: Shortness of breath Patient denies any shortness of breath today. No issues overnight. Patient has no new complaints. Physical Examination - Vital Signs Temperature: 98.5 F Blood Pressure: 134/88 Pulse: 63 Respirations: 16 Pulse Ox (%): 98 - Studies Laboratory Data (last 24 hrs) 06/30/22 13:30: WBC 7.40, Hgb 17.8, Hct 51.1 H, Plt Count 348 06/30/22 13:30: Sodium 137, Potassium 3.7, BUN 18, Creatinine 1.11, Glucose 147 H, Magnesium 2.0, Total Bilirubin 0.6, AST 50 H, ALT 44, Alkaline Phosphatase 68 Assessment And Plan - Current Problems (Diagnosis) (1) Primary spontaneous pneumothorax Current Visit: Yes Status: Acute - Plan Physical Exam General: Alert, In no apparent distress, Oriented x3 Neck: Supple, JVD not distended. Respiratory: Clear to auscultation bilaterally, Normal air movement, Pigtail catheter-right chest hooked to a waterseal Cardiovascular: No edema, Regular rate/rhythm, Normal S1 S2, No murmurs Capillary refill: <2 Seconds Gastrointestinal: Normal bowel sounds, Soft and benign, Non-distended, No tenderness Musculoskeletal: No swelling, No tenderness Integumentary: No rashes, No cyanosis Neurological: Normal strength at 5/5 x4 extr, Cranial nerves 3-12 intact Lymphatics: No axilla or inguinal lymphadenopathy Plan: Pneumothorax almost completely resolved then a moderate amount recollected. Patient seen by Dr. Dumont who adjusted the pigtail and the suction. Repeat x-ray shows almost complete resolution. Oxygen therapy Pain medication as needed. Incentive spirometry Pigtail catheter management per Dr. Dumont. Serial chest x-ray. Supportive measures with IV hydration.
[2022-07-02] MEDS: NA CHLORIDE 0.9% 1,000 ML IV SCH ×2 (01:26→11:23)
[2022-07-02 01:47] VITALS: BMI 30.9
[2022-07-02 04:45] LABS: Specific Gravity 1.025 (1.005-1.030); Urine Bilirubin Negative (Negative); Urine Blood Negative (Negative); Urine Clarity Clear (Clear); Urine Color Yellow (Yellow); Urine Glucose Negative (Negative); Urine Protein Negative (Negative); Urine Urobilinogen 0.2 mg/dL (0.2-1.0); Urine pH 5.5 (5.0-7.0)
[2022-07-02 05:54] LABS: Potassium 3.9 mmol/L (3.5-5.1)
--- NOTE | 2022-07-02 07:44 | RAD REPORT ---
EXAM DESCRIPTION: RAD - Chest Single View - 07/02/2022 6:54 am CLINICAL HISTORY: Pneumothorax s/p pigtail catheter COMPARISON: Chest Single View dated 07/01/2022; Chest Single View dated 07/01/2022; Chest Single View dated 06/30/2022; Chest Single View dated 06/30/2022 FINDINGS: Lines: Chest tube overlying the right hemithorax. Lungs: No evidence of edema or pneumonia. Pleural: Small to moderate right-sided pneumothorax has increased in size. Cardiac: The heart size is within normal limits. Bones: No acute fractures. Other: IMPRESSION: Moderate right-sided pneumothorax which is increased in size from yesterday's radiograph . Chest tube is in similar positioning.
[2022-07-02] MEDS: ENOXAPARIN 40 MG/0.4 ML SQ SCH (08:51)
[2022-07-02] MEDS ORDERED: LIDOCAINE 1% 20 ML MDV ONE (11:41)
[2022-07-02] MEDS: MORPHINE 2 MG/ML SYR IV PRN ×3 (11:53→19:42)
--- NOTE | 2022-07-02 11:56 | P.CNS ---
Date of Consult: 07/02/22 Reason for Consult: Primary spontaneous pneumothorax Chief Complaint: Shortness of breath History of Present Illness: Patient is 42 years of age presented to the emergency room with shortness of breath has spontaneous pneumothorax on the right side pigtail catheter was inserted he still continues to have a moderate size and pneumothorax despite repositioning Allergies No Known Drug Allergies Allergy (Verified 06/30/22 20:41) Unknown beef Allergy (Intermediate, Uncoded 12/28/19 14:48) Nausea/Vomiting Home Medications: NK [No Home Meds] 06/30/22 - Past Medical/Surgical History Diabetic: No -: None -: Appendectomy - Family History Mother Medical History: Diabetes - Social History Smoking Status: Current some day smoker Alcohol use: Yes CD- Drugs: No Caffeine use: Yes Place of Residence: Home Review of Systems is unable to be obtained Physical Examination Temp Pulse Resp BP Pulse Ox 97.7 F 76 18 149/108 H 98 07/02/22 08:00 07/02/22 08:00 07/02/22 08:00 07/02/22 08:00 07/02/22 08:00 General: Alert, Oriented x3 Respiratory: Clear to auscultation bilaterally Cardiovascular: No edema, Regular rate/rhythm - Problems (1) Primary spontaneous pneumothorax Current Visit: Yes Status: Acute Plan: Patient is a 42 admitted with primary spontaneous pneumothorax appears to have worsened since his x-ray from yesterday discussed with Dr. Lozano no air leak noted repeat a chest CT previous CT scan did show some some subpleural blebs
[2022-07-02] MEDS: ONDANSETRON 4 MG/2 ML VIAL IV PRN ×2 (12:00→19:42)
[2022-07-02] MEDS ORDERED: HYDROMORPHONE HCL 1 MG/ML INJ IV ONE (12:13)
--- NOTE | 2022-07-02 13:07 | RAD REPORT ---
EXAM DESCRIPTION: RAD - Chest Single View - 07/02/2022 12:42 pm CLINICAL HISTORY: chest tube placement COMPARISON: Portable chest 07/02/2022, CT abdomen June 2018 TECHNIQUE: AP portable chest image was obtained 07/02/2022 12:42 pm . FINDINGS: Lung volumes are low. Approximately 40% right-sided pneumothorax is present. Chest tube is in place. The chest tube is superimposed on the upper right abdomen. Tip is in the right mid abdomen region. Review of the 2018 CT study does not show a deep posterior gutter of the right lung field. I ntraperitoneal placement of the chest tube cannot be excluded. Heart and vasculature are normal. No left-sided pneumothorax or measurable left-sided pleural effusio n No acute bony abnormality seen. No acute aortic findings suspected. Findings telephoned to the referring physician 12:57 p.m. IMPRESSION: Approximately 40% right-sided pneumothorax remains on this low lung volume post chest tu be placement film. Chest tube appears to enter approximately seventh inner costal space with the tubing superimposed on the right upper abdomen on this examination. Tip is inferiorly directed overlying the upper abdomen. Patient may have a deep posterior gutter of the right lung field. However, given the persistent pneum othorax and chest tube positioning, intraperitoneal positioning cannot be excluded.
--- NOTE | 2022-07-02 13:39 | RAD REPORT ---
EXAM DESCRIPTION: CT - Thorax Wo Con - 07/02/2022 1:25 pm CLINICAL HISTORY: Spontaneous pneumothorax, chest tube placement, abnormal chest film COMPARISON: Chest For Pe Angio dated 01/14/2017 TECHNIQUE: Axial 5 mm thick images of the chest were obtained without IV contrast. All CT scans are performed using dose optimization technique as appropriate and may include automated exposure control or mA/KV adjustment according to patient size. FINDINGS: Chest tube enters the right sixth inner costal space laterally. Chest tube courses along t he right base with the tip in the deep posterior refraction of the pleural cavity. This close approxi mation to the diaphragmatic pleura would explain the questionable intraperitoneal placement of the tu be. Additional information subsequent to the portable chest film indicated the chest tube was clamped at the time of the chest film. This would also explain the persistent pneumothorax. Right-sided pneu mothorax is still present estimated at 30%. . Pneumothorax is mostly anteriorly positioned. There is small amount of atelectasis along the posterior lower right chest. Mediastinal structures remain midline. No left-sided pneumothorax. No left-sided pleural effusion or acute finding in the lung parenchyma. Patient does have sub pleural bulla and bleb formation in the e ach apex. Several bulla are present along the medial aspect of the right upper lobe. No abnormal mediastinal or hilar masses or lymphadenopathy seen. No gross aortic or pulmonary artery finding suspected. No cardiomegaly or pericardial effusion. Limited upper abdomen imaging shows geog raphic fatty infiltration of the liver. No chest wall mass or abnormal axillary lymphadenopathy. IMPRESSION: Right-sided chest tube is intrathoracic in position. Tube enters the sixth inner costal space laterally and extends along the right lung base with the tip in the deepest portion of the righ t posterior gutter. Approximately 30% pneumothorax is still present. Pneumothorax has decreased in size between the time of the chest film and this CT examination. The patient has bilateral subpleural bulla and bleb formation, likely a source for the spontaneous pn eumothorax.
--- NOTE | 2022-07-02 14:33 | P.PN ---
Subjective Date of Service: 07/02/22 Chief Complaint: Shortness of breath Patient right-sided pneumothorax keeps recurring despite pigtail catheter in place. He denies any chest pain. Physical Examination - Vital Signs Temperature: 97.8 F Blood Pressure: 129/92 Pulse: 77 Respirations: 20 Pulse Ox (%): 93 Assessment And Plan - Current Problems (Diagnosis) (1) Primary spontaneous pneumothorax Current Visit: Yes Status: Acute - Plan Physical Exam General: Alert, In no apparent distress, Oriented x3 Neck: Supple, JVD not distended. Respiratory: Clear to auscultation bilaterally, Normal air movement, Pigtail catheter-right chest hooked to a waterseal Cardiovascular: No edema, Regular rate/rhythm, Normal S1 S2, No murmurs Capillary refill: <2 Seconds Gastrointestinal: Normal bowel sounds, Soft and benign, Non-distended, No tenderness Musculoskeletal: No swelling, No tenderness Integumentary: No rashes, No cyanosis Neurological: Normal strength at 5/5 x4 extr, Cranial nerves 3-12 intact Lymphatics: No axilla or inguinal lymphadenopathy Plan: Pneumothorax keeps on recurring. Pigtail catheter changed to a large bore chest tube. Pulmonary consulted to evaluate for pleurodesis. Dr. Shore recommend large bore chest tube for now Oxygen therapy Pain medication as needed. Incentive spirometry Serial chest x-ray. Diet as tolerated.
--- NOTE | 2022-07-02 14:56 | RAD REPORT ---
EXAM DESCRIPTION: RAD - Chest Single View - 07/02/2022 2:46 pm CLINICAL HISTORY: chest tube placement COMPARISON: Portable 07/02/2022, CT chest 07/02/2022 TECHNIQUE: AP portable chest image was obtained 07/02/2022 2:46 pm . FINDINGS: Lung volumes remain low. Chest tube has been retracted with the tip in the medial right ba se. Pneumothorax has now mostly resolved. There is only minimal amount of pneumothorax along the late ral aspect of the upper right lung field. No acute lung parenchymal process. No left-sided pneumothor ax or pleural fluid collection. Heart and vasculature are normal. No measurable pleural effusion and no pneumothorax. No acute bony abnormality seen. No acute aortic findings suspected. IMPRESSION: Near complete resolution of the right-sided pneumothorax since prior imaging. Right-sided chest tube has been retracted a few cm. Tip is in the medial right base.
--- NOTE | 2022-07-02 17:14 | P.OP ---
Preoperative diagnosis: Persistent RIGHT Pneumothorax Postoperative diagnosis: Persistent RIGHT Pneumothorax Primary procedure: Replacement of RIGHT thoracostomy Tube Anesthesia: 1% lidocaine used Estimated blood loss: <2cc Specimen: none Findings: air immediately encountered Complications: None Drain(s): Other (Thal- Chest Tube 16Fr) Transferred to: Recovery Room Condition: Good
--- NOTE | 2022-07-02 17:19 | P.OP ---
Preoperative diagnosis: RIGHT spontanous pneumothorax Postoperative diagnosis: RIGHT spontanous pneumothorax Primary procedure: Replacement of RIGHT pigtail thoracostomy Tube Anesthesia: 1% lidocaine used Estimated blood loss: <1cc Specimen: none Findings: air immediately encountered Complications: None Drain(s): Other (Pigtail thoracic catheter placed.)
--- NOTE | 2022-07-02 20:05 | P.PN ---
Date of Service: 07/03/22 Subjective: breathing more comfortably after larger chest tube placed R soreness at chest tube insertion side otherwise doing ok ROS: 10 point ROS as noted above, otherwise negative Physical Exam: Gen: NAD, AOx3 HEENT: normal conjunctiva, sclera anicteric CV: regular rate & rhythm, no edema Pulm: non-labored respirations on room air, R chest tube in place - to gravity Abd: soft, non-tender, non-distended Neuro: normal speech, normal affect, moves all extremities Problem List Primary spontaneous pneumothorax Pneumothorax, recurring despite R pigtail catheter placement Pulm consulted - recommended changing to large bore chest tube - done on 07/[address] Dumont continue O2 as needed placed chest tube back to suction CXR 07/03 with increase pneumotho suspect ruptured bleb from forceful coughing Pain medication as needed. incentive spirometry Serial chest x-ray. Diet as tolerated. Dr. Dumont and Dr. Shore following may benefit from pleurodesis VTE: lovenox Code: full Dispo: home ~2-3 days Time Spent Managing Pts Care (In Minutes): 35
--- NOTE | 2022-07-02 20:07 | CON ---
Date of Consultation: 06/30/2022 Reason For Consultation: Right-sided spontaneous pneumothorax. Brief History Of Present Illness: The patient is a 42-year-old Japanese-speaking gentleman with only past medical history of appendicitis, who presents to the emergency department after a sudden episode of coughing and shortness of breath. He states that he got significant right-sided chest pain after a coughing spell and came to the emergency room with the above-stated complaint. He had difficulty catching his breath during my examination, but was conversive, but complained of the continued chest pain, shortness of breath, even being supplemented with oxygen. Past Medical History: Significant for appendicitis. Past Surgical History: Laparoscopic appendectomy. Allergies: TO BEEF. Home Medications: Include Tylenol with Codeine only p.r.n. after his surgery. He states he takes no other home medications. He had taken Cipro, Flagyl, and prednisone before in the past. Review of Systems: Ten-point review of systems other than HPI, denies. He denies smoking, alcohol, or recreational drug use other than social alcohol use. Physical Examination: General: He is awake, alert, and oriented. Psychiatric: He answers questions appropriately. HEENT: Normocephalic. His sclerae are anicteric. Mucosa is moist. Oropharynx clear. Neck: Supple. Chest: Decreased breath sounds on the right. He appears somewhat anxious during my examination. Abdomen: Soft. Extremities: No clubbing, cyanosis, edema. Skin: Warm and dry. He had a chest x-ray performed, which had a large pneumothorax noted on the right chest. Of interest , the patient had a previous CT of the chest in the recent past, which showed blebs. This is likely the etiology of a spontaneous pneumothorax. Assessment And Plan: This is a 42-year-old male, who comes in with a spontaneous pneumothorax on the right side. I have explained the risks, benefits, and alternatives of placement of a right thoracos edwin pigtail catheter including, but not limited to bleeding, infection, damage to surrounding tissue s, injury to lungs, great vessels, need for further operation procedures. Dr. Aragon was present and helped me with the Japanese portions of the information as above. The patient agrees to proceed as in dicated. JEFERSON/ANTONIA Voice ID: [id number] Report ID: [id number]
--- NOTE | 2022-07-02 22:38 | OP ---
Date of Procedure: 07/02/2022 Surgeon: Jared Dumont MD, Preoperative Diagnosis: Persistent right pneumothorax. Postoperative Diagnosis: Persistent right pneumothorax. Procedure Performed: Replacement of right thoracostomy tube. Anesthesia: 1% lidocaine utilized. Estimated Blood Loss: Less than 2 cc. Specimen: None. Findings: Air immediately encountered and chest tube tidaling quite well. Complications: None. Drains: A Thal chest tube 16-Kazakh placed in the right 7th intercostal space. The patient remained in the room throughout the procedure in good condition. Procedure In Detail: After informed consent was obtained, patient was prepped and draped in the usua l sterile fashion. After adequate anesthesia achieved, I removed the previously placed pigtail josh ter, which was placed in the emergency room for a spontaneous pneumothorax, had placed on Saturday at was 2 days ago. The pigtail catheter was effective initially, but the patient continued to have s lowly progressive intermittent enlargement and reduction of the pneumothorax. As such, I opted to re place the chest tube. Procedure In Detail: After prepping and draping the area, I removed the previously placed pigtail ca theter as described above using sutures, scissors and pickups. The catheter was removed at this poin t. I then went slightly posterior superior to the previously placed chest tube. I anesthetized the skin with 1% lidocaine, made a small penny incision, and then used a finder needle to cannulate the th oracic space. Air was encountered as I had liquid in the syringe, bubbling quite easily. I then adv anced the wire at this point without complication or difficulty. I then removed the needle and using Seldinger technique, performed sequential dilatation into the chest cavity using the attached Thal d ilators. At this point, I then advanced the Thal chest tube into the chest cavity without resistance . I then hooked it up to the Pneumovac system and secured the chest tube to the skin with an talent acquisition manager d, I believe, it was 2-0 silk suture and a sterile dressing was placed over top. The patient tolerat ed the procedure well without evidence of complication. The chest tube was tidaling and bubbling amol te well and wire out was called at the end of the procedure. All counts were correct at the end of t he case. A chest x-ray will be performed. JEFERSON/ANTONIA Voice ID: [id number] Report ID: [id number]
--- NOTE | 2022-07-02 23:23 | OP ---
Date of Procedure: 06/30/2022 Surgeon: Jared Dumont MD, Preoperative Diagnosis: Right spontaneous pneumothorax. Postoperative Diagnosis: Right spontaneous pneumothorax. Procedure Performed: Placement of a right pigtail thoracostomy tube. Anesthesia: 1% lidocaine utilized. Estimated Blood Loss: Less than 1 cc. Specimen: None. Findings: Air immediately encountered. Complications: None. Implants/drains: Pigtail thoracic catheter 6-Romanian. The patient tolerated the procedure without ev idence of complication. Procedure In Detail: After informed consent was obtained, the patient was prepped and draped in the usual sterile fashion at the ER. I then anesthetized the skin overlying the 7th intercostal space an d using a finder needle, I cannulated the tract entering the right chest wall. After appropriately a nesthetizing this, I used the pre-made pigtail catheter introducer and cannulated the thoracic cavity with a pigtail catheter. I advanced it cranially without incident or complication. I then attached the catheter to the pigtail catheter to the Pneumo-evac system and noted immediate air bubbling out quite well. The patient had symptomatic improvement after placement. I then secured this with the a ttached, I should say, 2-0 silk suture at the chest wall. A sterile dressing was placed over top. T he patient tolerated the procedure well without evidence of complication and remained in the ER in good condition throughout the procedure. All counts were correct at the end of the case. A stat chest x-ray will be performed. JEFERSON/ANTONIA Voice ID: [id number] Report ID: [id number]
[2022-07-03 06:20] LABS: Albumin 3.7 g/dL (3.4-5.0); Bilirubin Total 0.7 mg/dL (0.2-1.0); Magnesium 2.3 mg/dL (1.8-2.4); Phosphorus 3.4 mg/dL (2.5-4.9); Potassium 3.8 mmol/L (3.5-5.1); Protein, Total 7.6 g/dL (6.4-8.2)
--- NOTE | 2022-07-03 07:32 | RAD REPORT ---
EXAM DESCRIPTION: [place] Single View07/03/2022 6:02 am CLINICAL HISTORY: Pneumothorax COMPARISON: July 02, 2022 FINDINGS: Small to moderate right pneumothorax. Chest tube with its tip in the medial lower right he mithorax Mild bibasilar lung opacities. Heart is normal size IMPRESSION: Small to moderate right pneumothorax
[2022-07-03] MEDS: ENOXAPARIN 40 MG/0.4 ML SQ SCH (08:24)
[2022-07-03] MEDS ORDERED: POTASSIUM CL SA 10 MEQ TAB PO ONE (09:00)
[2022-07-03] MEDS: MORPHINE 2 MG/ML SYR IV PRN ×2 (10:47→20:35)
--- NOTE | 2022-07-03 11:50 | P.PN ---
Subjective Date of Service: 07/03/22 Chief Complaint: Right-sided pneumothorax Subjective: Improving (Patient is improving complaining of right-sided inspiratory chest pain) Review of Systems is unable to be obtained Physical Examination - Vital Signs Temperature: 97.7 F Blood Pressure: 145/99 Pulse: 88 Respirations: 18 Pulse Ox (%): 94 - Physical Exam General: Alert, Cooperative Neck: Supple Respiratory: Clear to auscultation bilaterally, Diminished Assessment And Plan - Current Problems (Diagnosis) (1) Primary spontaneous pneumothorax Current Visit: Yes Status: Acute Plan: Patient admitted with primary spontaneous pneumothorax minimal air leak cussed with Dr. Martinez after increased suction possible iodine pleurodesis
[2022-07-03] MEDS: HYDROCODONE/APAP 5/325 MG TAB PO PRN (14:27)
--- NOTE | 2022-07-04 06:18 | P.PN ---
Date of Service: 07/04/22 Subjective: breathing more comfortably chest tube to wall suction +air leak on exam ROS: 10 point ROS as noted above, otherwise negative Physical Exam: Gen: NAD, AOx3 HEENT: normal conjunctiva, sclera anicteric CV: regular rate & rhythm, no edema Pulm: non-labored respirations on room air, R chest tube in place - to suction Abd: soft, non-tender, non-distended Neuro: normal speech, normal affect, moves all extremities 5/5 str Problem List Primary spontaneous pneumothorax Pneumothorax, recurring despite R pigtail catheter placement Pulm consulted - recommended changing to large bore chest tube - done on 07/[address] Dumont continue O2 as needed CXR 07/03 with increase pneumotho placed chest tube back to suction on 07/03 with improvement suspect ruptured bleb from forceful coughing +air leak on exam; pulm considering pleurodesis tomorrow Pain medication as needed. incentive spirometry Serial chest x-ray. Diet as tolerated. Dr. Dumont and Dr. Shore following VTE: lovenox Code: full Dispo: home ~2-3 days Time Spent Managing Pts Care (In Minutes): 35
[2022-07-04] MEDS: ENOXAPARIN 40 MG/0.4 ML SQ SCH (08:47)
--- NOTE | 2022-07-04 10:03 | RAD REPORT ---
EXAM DESCRIPTION: RAD - Chest Single View - 07/04/2022 5:25 am CLINICAL HISTORY: R pneumothorax with air leak Chest pain. COMPARISON: Chest Single View dated 07/03/2022; Chest Single View dated 07/02/2022; Chest Single View dated 07/02/2022; Chest Single View dated 07/02/2022 FINDINGS: Portable technique limits examination quality. Right-sided chest tube remains in place. Previously noted right pneumothorax appears decompressed sin ce comparative study. Mild atelectasis in the lung bases. The heart is normal in size. No displaced f ractures. IMPRESSION: No measurable right-sided pneumothorax seen on today's film with right chest tube in triston ce.
--- NOTE | 2022-07-04 20:17 | P.PN ---
Subjective Date of Service: 07/04/22 Chief Complaint: Right-sided pneumothorax Subjective: Improving (No complaints, breathing more easily) Physical Examination - Vital Signs Temperature: 97.4 F Blood Pressure: 117/74 Pulse: 88 Respirations: 20 Pulse Ox (%): 92 - Physical Exam General: Alert, In no apparent distress, Cooperative Respiratory: Clear to auscultation bilaterally, Normal air movement, Other (RIGHT chest tube in place, continues to have moderate air leak.) Assessment And Plan - Current Problems (Diagnosis) (1) Primary spontaneous pneumothorax Current Visit: Yes Status: Acute Plan: - Continue chest tube on high suction - improving chest x-ray - consider tube pleurodesis
[2022-07-04] MEDS: MORPHINE 2 MG/ML SYR IV PRN ×3 (20:20→23:45)
[2022-07-04] MEDS: HYDROCODONE/APAP 5/325 MG TAB PO PRN (22:37)
[2022-07-05 06:09] LABS: Absolute Lymphocytes (CBC) 2.2 K/uL (0.7-4.9); Hematocrit 47.4 % (39.6-49.0); Lymphocytes % 30.9 % (15.3-44.8); MPV 7.5 fL (7.6-11.3)
--- NOTE | 2022-07-05 07:27 | RAD REPORT ---
EXAM DESCRIPTION: RAD - Chest Single View - 07/05/2022 5:49 am CLINICAL HISTORY: Pneumothorax, chest tube COMPARISON: Portable 07/05/2022 0017 hours TECHNIQUE: AP portable chest image was obtained 07/05/2022 5:49 am . FINDINGS: No change in positioning of the chest tube. Lung volumes are low. The pneumothorax seen on the earlier study is not identifiable. No new lung parenchymal process. No left-sided pneumothorax. Heart and vasculature are normal. No new or enlarging pleural effusion. No acute bony abnormality seen. No acute aortic findings suspected. IMPRESSION: Pneumothorax seen in the chest film 5 hours earlier is no longer identifiable. No change to positioning of the chest tube.
[2022-07-05] MEDS: HYDROCODONE/APAP 5/325 MG TAB PO PRN (08:31)
[2022-07-05] MEDS: ENOXAPARIN 40 MG/0.4 ML SQ SCH (08:32)
[2022-07-05] MEDS ORDERED: POTASSIUM CL SA 10 MEQ TAB PO ONE (09:00)
--- NOTE | 2022-07-05 11:12 | RAD REPORT ---
EXAM DESCRIPTION: RAD - Chest Single View - 07/04/2022 11:22 pm CLINICAL HISTORY: 2 years Male, chest pain COMPARISON: Chest radiograph of the same day IMPRESSION: Right basilar chest tube noted. Reaccumulation of small to moderate right pneumothorax measuring approximately 2.4 cm. Bilateral interstitial opacities. No pleural effusion. Cardiomediastinal silhouette is within normal limits. No acute osseous abnormality. Electronically signed by: William Brown DO 07/04/2022 11:33 PM CDT Due to temporary technical issues with the PACS/Fluency reporting system, reports are being signed by the in house radiologists without review as a courtesy to insure prompt reporting. The interpreting radiologist is fully responsible for the content of the report.
--- NOTE | 2022-07-05 11:14 | RAD REPORT ---
EXAM DESCRIPTION: RAD - Chest Single View - 07/05/2022 12:28 am CLINICAL HISTORY: Shortness of breath. COMPARISON: Chest radiograph from July 04, 2022. TECHNIQUE: Single view AP chest radiograph(s). FINDINGS: Similar appearance of a small streaky opacity in the medial right lower lung, as well as m ild perihilar interstitial thickening. A right basilar chest tube is in place. Decreased size of the right-sided pneumothorax, predominantly lateral in location, now small, estimated at 10-15% hemithora x volume. No pleural effusion identified. Nonenlarged cardiomediastinal silhouette. No significant os seous abnormality. IMPRESSION: Decreased size of the right-sided pneumothorax, now small, with chest tube in place. Electronically signed by: Willow You MD 07/05/2022 12:41 AM CDT Due to temporary technical issues with the PACS/Fluency reporting system, reports are being signed by the in house radiologists without review as a courtesy to insure prompt reporting. The interpreting radiologist is fully responsible for the content of the report.
[2022-07-05] MEDS: MORPHINE 2 MG/ML SYR IV PRN ×2 (11:16→22:02)
[2022-07-05] MEDS ORDERED: LIDOCAINE 2% INJ, 20 mL 10 ML, NS 0.9% VIAL 40 ML IV ONE ×2 (12:50)
--- NOTE | 2022-07-05 12:51 | P.PN ---
Subjective Date of Service: 07/05/22 Chief Complaint: Right-sided pneumothorax Subjective: Improving (Very minimal air leak today chest x-ray lung is completely expanded his chest pain has improved) Review of Systems is unable to be obtained Physical Examination - Vital Signs Temperature: 98.2 F Blood Pressure: 128/81 Pulse: 76 Respirations: 16 Pulse Ox (%): 97 - Physical Exam General: Alert, Oriented x3 Respiratory: Clear to auscultation bilaterally Assessment And Plan - Current Problems (Diagnosis) (1) Primary spontaneous pneumothorax Current Visit: Yes Status: Acute Plan: Patient's pneumothorax is improving tube needed to be flushed yesterday he developed another pneumothorax questionable leak we will plan to keep him on suction today try pleurodesis tomorrow still continues to have a significant air leak may need transferring to a tertiary care center his primary spontaneous pneumothorax is only indicated if he has persistent air leak 5 suction will DC chest tube suction 4:00 tomorrow morning chest x-ray if there is no pneumothorax we will proceed to pleurodesis or consider transferring him out
[2022-07-05] MEDS ORDERED: POVIDONE-IODINE 10 ML, NS 0.9% VIAL 40 ML TOP SCH ×2 (13:00)
--- NOTE | 2022-07-05 16:35 | P.PN ---
Date of Service: 07/05/22 Subjective: overnight had increased chest discomfort and dyspnea. increased pneumothorax, found to have clogged tubing breathing more comfortably now chest tube to wall suction no air leak seen this morning ROS: 10 point ROS as noted above, otherwise negative Physical Exam: Gen: NAD, AOx3 HEENT: normal conjunctiva, sclera anicteric CV: regular rate & rhythm, no edema Pulm: non-labored respirations on room air, R chest tube in place - to suction, no air leak Abd: soft, non-tender, non-distended Neuro: normal speech, normal affect, moves all extremities 03/08 str Problem List Primary spontaneous pneumothorax Pneumothorax, recurred after R pigtail catheter placement Pulm consulted - recommended changing to large bore chest tube - done on 07/[address] Dumont continue O2 as needed CXR 07/03 with increased pneumotho placed chest tube back to suction on 07/03 with improvement suspect ruptured bleb from forceful coughing +air leak on exam initially, none seen this morning transfer intitiated for VATS pulm considering pleurodesis tomorrow repeat CXR in AM Pain medication as needed. incentive spirometry Serial chest x-ray. Diet as tolerated. Dr. Dumont and Dr. Shore following VTE: lovenox Code: full Dispo: home ~2-3 days Time Spent Managing Pts Care (In Minutes): 35
[2022-07-06 06:45] LABS: Hematocrit 48.5 % (39.6-49.0); MPV 7.4 fL (7.6-11.3); RBC Red Blood Cell Count 5.39 M/uL (4.33-5.43)
--- NOTE | 2022-07-06 07:52 | RAD REPORT ---
[facility] 6[facility]03 am CLINICAL HISTORY: Pneumothorax COMPARISON: July 05, 2022 FINDINGS: Small right apical pneumothorax without significant change. Right chest tube in place Mild right basilar atelectasis. Heart is normal size IMPRESSION: Small right apical pneumothorax without significant change
[2022-07-06] MEDS: MORPHINE 2 MG/ML SYR IV PRN ×3 (08:20→22:37)
--- NOTE | 2022-07-06 09:36 | P.PN ---
Subjective Date of Service: 07/06/22 Chief Complaint: Right-sided pneumothorax Patient been complaining of right-sided chest discomfort been no air leak noted to his chest is fully expanded Review of Systems Cardiovascular: Chest Pain Physical Examination - Vital Signs Temperature: 97.8 F Blood Pressure: 108/69 Pulse: 70 Respirations: 16 Pulse Ox (%): 98 - Physical Exam General: Alert, Moderate distress Respiratory: Clear to auscultation bilaterally, Diminished Assessment And Plan - Current Problems (Diagnosis) (1) Primary spontaneous pneumothorax Current Visit: Yes Status: Acute Plan: Patient is doing well his air leak has subsided he was taken off chest tube suction no air leak noted pleurodesis was performed today medicated with morphine plan to unclamp the chest tube in about 4 hours chest x-ray tomorrow if his lung remains expanded plan for discharge
--- NOTE | 2022-07-06 09:37 | P.OP ---
Date of Service: 07/06/22 (Pleurodesis) Findings and Operative Technique Patient is 42 years of age admitted with spontaneous pneumothorax with air leak has subpleural blebs After discussing it with the patient he was injected with iodine iodine as per protocol medicated with morphine/tube clamped for 4 hours then unclamped to leave the chest tube on suction DC chest tube suction at 10 PM chest x-ray tomorrow morning if there is no air leak in his lung is expanded plan to remove the chest tube and discharge
[2022-07-06] MEDS: ENOXAPARIN 40 MG/0.4 ML SQ SCH (10:13)
[2022-07-06] MEDS: HYDROCODONE/APAP 5/325 MG TAB PO PRN (12:35)
--- NOTE | 2022-07-06 13:42 | P.PN ---
Subjective Date of Service: 07/03/22 Chief Complaint: Right-sided pneumothorax Persistent large air leak Physical Examination - Vital Signs Temperature: 98.0 F Blood Pressure: 126/89 Pulse: 88 Respirations: 16 Pulse Ox (%): 95 - Physical Exam General: Alert, In no apparent distress, Cooperative Respiratory: Clear to auscultation bilaterally, Other (Right Chest tube in place, large air leak persists, on high suction) Assessment And Plan - Current Problems (Diagnosis) (1) Primary spontaneous pneumothorax Current Visit: Yes Status: Acute Plan: - Continue chest tube on high suction - patient has persistent large air leak, tube requires frequent attention, if kinked for short time, pneumothorax rapidly develops, then relieved with attention to chest tube - patient will likely need thoracic surgeon as he has history of blebs noted on CT, recommend initiate transfer to thoracic surgeon - consider tube pleurodesis in interim - continue medical management - continue oxygen supplementation
--- NOTE | 2022-07-06 17:55 | RAD REPORT ---
EXAM DESCRIPTION: RAD - Chest Single View - 07/06/2022 5:43 pm CLINICAL HISTORY: s/p pleurodesis Chest pain. COMPARISON: Chest Single View dated 07/06/2022; Chest Single View dated 07/05/2022; Chest Single View da sin 07/05/2022; Chest Single View dated 07/04/2022 FINDINGS: Portable technique limits examination quality. Right chest tube is in place. Right-sided pneumothorax has enlarged since earlier study, now estimate d at 50% of right lung volume. The heart is normal in size. IMPRESSION: There has been significant enlargement of the right-sided pneumothorax since prior study , now estimated at 50% of lung volume. There is a right chest tube in place.
[2022-07-06 18:54] LABS: Potassium 4.1 mmol/L (3.5-5.1)
--- NOTE | 2022-07-06 22:28 | P.PN ---
Date of Service: 07/06/22 Subjective: transfer denied by admin s/p pleurodesis this AM reports R chest discomfort ROS: 10 point ROS as noted above, otherwise negative Physical Exam: Gen: NAD, AOx3 HEENT: normal conjunctiva, sclera anicteric CV: regular rate & rhythm, no edema Pulm: non-labored respirations on room air, R chest tube in place - clamped after pleurodesis Abd: soft, non-tender, non-distended Neuro: normal speech, normal affect, moves all extremities 5/5 str Problem List Primary spontaneous pneumothorax h/o blebs on prior imaging Pneumothorax, recurred after R pigtail catheter placement Pulm consulted - changed to large bore chest tube - done on 07/[address] Dumont continue O2 chest tube to suction CXR 07/03 with increased pneumothorax placed chest tube back to suction on 07/03 with improvement suspect ruptured bleb from forceful coughing persistent large air leak transfer initiated top [facility] for VATS on 07/05 - denied by admin; will escalate, try different facilities now s/p pleurodesis - betadine, on 07/06; pulm recommended CXR tomorrow; will repeat this afternoon Pain medication as needed. incentive spirometry Diet as tolerated. Dr. Dumont and Dr. Shore following VTE: lovenox Code: full Dispo: try transfer to tertiary care center; will need VATS for persistent large air leak Time Spent Managing Pts Care (In Minutes): 35
--- NOTE | 2022-07-07 04:17 | RAD REPORT ---
EXAM DESCRIPTION: RAD - Chest Single View - 07/06/2022 10:57 pm CLINICAL HISTORY: shortness of breath/chest tube placement Chest pain. COMPARISON: Chest Single View dated 07/06/2022; Chest Single View dated 07/06/2022; Chest Single View da sin 07/05/2022; Chest Single View dated 07/05/2022 FINDINGS: Portable technique limits examination quality. Small bore right-sided chest tube is in place. Previously noted right-sided pneumothorax has been dec ompressed. Left lung is grossly clear. The heart is normal in size. No displaced fractures. IMPRESSION: No measurable right-sided pneumothorax seen.
--- NOTE | 2022-07-07 08:17 | RAD REPORT ---
EXAM DESCRIPTION: RAD - Chest Single View - 07/07/2022 6:17 am CLINICAL HISTORY: R pneumothorax with air leak COMPARISON: Chest Single View dated 07/06/2022; Chest Single View dated 07/06/2022; Chest Single View da sin 07/06/2022; Chest Single View dated 07/05/2022hest Single View dated 07/06/2022; Chest Single View hunter ed 07/06/2022; Chest Single View dated 07/06/2022; Chest Single View dated 07/05/2022; Thorax Wo Con dated 07/02/2022 FINDINGS: The right sided pneumothorax has recurred and is now moderate. The chest tube is in simila r positioning. The right lung is atelectatic IMPRESSION: Recurrent moderate sized right pneumothorax.
[2022-07-07] MEDS: ENOXAPARIN 40 MG/0.4 ML SQ SCH (08:54)
--- NOTE | 2022-07-07 09:26 | RAD REPORT ---
EXAM DESCRIPTION: RAD - Chest Single View - 07/07/2022 9:07 am CLINICAL HISTORY: pneumothorax COMPARISON: 07/07/2022 FINDINGS: Mild decrease in size of the right-sided pneumothorax. Chest tube in similar positioning. IMPRESSION: Right-sided pneumothorax has mildly decreased in size but remains small to moderate.
[2022-07-07 09:52] VITALS: O2SAT 96
[2022-07-07] MEDS: MORPHINE 2 MG/ML SYR IV PRN ×2 (10:45→13:03)
--- NOTE | 2022-07-07 11:17 | RAD REPORT ---
EXAM DESCRIPTION: RAD - Chest Single View - 07/07/2022 11:03 am CLINICAL HISTORY: recheck pneumo COMPARISON: Chest Single View dated 07/07/2022; Chest Single View dated 07/07/2022; Chest Single View da sin 07/06/2022; Chest Single View dated 07/06/2022 FINDINGS: Pneumothorax has decreased in size from the prior chest radiograph though still remains sm all. Chest tube in similar positioning. IMPRESSION: Decrease in size of the right-sided pneumothorax which is now small.
[2022-07-07 11:37] VITALS: BP 113/76; TEMP 98.1
[2022-07-07] MEDS ORDERED: MORPHINE 2 MG/ML SYR IV PRN (13:27)
--- NOTE | 2022-07-07 13:47 | RAD REPORT ---
EXAM DESCRIPTION: RAD - Chest Single View - 07/07/2022 1:36 pm CLINICAL HISTORY: chest tube clogged COMPARISON: Chest Single View dated 07/07/2022; Chest Single View dated 07/07/2022; Chest Single View da sin 07/07/2022; Chest Single View dated 07/06/2022 FINDINGS/IMPRESSION: Interval enlargement of the right-sided pneumothorax which is now large.
--- NOTE | 2022-07-07 14:46 | P.DS ---
Admission Date: 06/30/22 Discharge Date: 07/07/22 Reason for Admission: Right-sided pneumothorax Consultations: Pulmonology - Dr. Shore General surgery - Dr. Dumont Brief History of Present Illness: 42yo M, romanian speaking with no known PMH Presented to ED due to sudden onset of shortness of breath after a forceful coughing spell. Associated with right-sided chest pain. CXR in ED: large right-sided pneumothorax. General surgery, Dr. Dumont, was c onsulted in ED and placed pigtail catheter, with follow up CXR: almost complete resolution of the pneumothorax. Patient had a CT chest done here in 2017 which demonstrated several subpleural blebs in the upper lobes. Hospital Course: Problem List Primary spontaneous pneumothorax h/o blebs on prior imaging Pneumothorax, recurred after R pigtail catheter placement. Chest tube placed on 07/02 with improvement, and placed to suction. Patient continued to have recurrent pneumothorax. Transfer was initiated for VATS due to persistent large air leak / recurring pneumothorax. Initially denied transfer - later discovered was due to miscommunication, and thought patient needed a VAD. Pulmonology performed bedside pleurodesis using Betadine on 07/06. After pleurodesis, patient continued to have recurrent pneumothorax, secondary to fibrin clogging the chest tube. Improved / resolved temporarily after flushing with normal saline Vital Signs/Physical Exam: Temp Pulse Resp BP Pulse Ox 98.1 F 96 H 14 113/76 95 07/07/22 11:36 07/07/22 11:36 07/07/22 11:36 07/07/22 11:36 07/07/22 11:36 General: Alert, In no apparent distress, Oriented x3 HEENT: Sclerae nonicteric Neck: Supple, LAD (on 3L NC) Respiratory: Diminished (at right base) Cardiovascular: No edema, Regular rate/rhythm Gastrointestinal: Soft and benign, Non-distended Musculoskeletal: No contractures, No tenderness Integumentary: No rashes, No significant lesion Neurological: Normal speech, Normal strength at 5/5 x4 extr, Normal affect Laboratory Data at Discharge: WBC 7.00 K/uL (4.3-10.9) 07/06/22 06:08 Hgb 17.0 g/dL (13.6-17.9) 07/06/22 06:08 Hct 48.5 % (39.6-49.0) 07/06/22 06:08 Plt Count 339 K/uL (152-406) 07/06/22 06:08 Sodium 138 mmol/L (136-145) 07/06/22 06:08 Potassium 4.1 mmol/L (3.5-5.1) 07/06/22 06:08 BUN 16 mg/dL (7-18) 07/06/22 06:08 Creatinine 0.99 mg/dL (0.55-1.3) 07/06/22 06:08 Glucose 88 mg/dL (74-106) 07/06/22 06:08 Phosphorus 3.4 mg/dL (2.5-4.9) 07/03/22 05:43 Magnesium 2.3 mg/dL (1.8-2.4) 07/03/22 05:43 Total Bilirubin 0.7 mg/dL (0.2-1.0) 07/03/22 05:43 AST 26 U/L (15-37) 07/03/22 05:43 ALT 43 U/L (12-78) 07/03/22 05:43 Alkaline Phosphatase 65 U/L (45-117) 07/03/22 05:43 Home Medications: NK [No Home Meds] 06/30/22 Followup: NONE,NONE [Primary Care Provider] - Time spent managing pt's care (in minutes): 45
--- NOTE | 2022-07-07 15:08 | RAD REPORT ---
EXAM DESCRIPTION: RAD - Chest Single View - 07/07/2022 2:42 pm CLINICAL HISTORY: f/u pneumothorax s/p tube flush COMPARISON: Chest Single View dated 07/07/2022; Chest Single View dated 07/07/2022; Chest Single View da sin 07/07/2022; Chest Single View dated 07/07/2022 FINDINGS/IMPRESSION: Decrease in size of the right-sided pneumothorax which is now small. Chest tube in similar positioning. There is likely some residual atelectasis at the right lung base.
[2022-07-07] MEDS: HYDROCODONE/APAP 5/325 MG TAB PO PRN (15:24)
== END 2022-07-07 15:54 | disposition short-term general hospital (02) | DRG 201 ==
LOC: ER 13:16 → ERHOLD 15:14 → 4TH 19:38
PROVIDERS: ADMIT Internal Medicine; ATTEND Hospitalist
PROC: 0W9930Z Drainage of Right Pleural Cavity with Drainage Device, Percutaneous Approach (ICD-10-PCS; principal; 2022-06-30)
PROC: 0WP930Z Removal of Drainage Device from Right Pleural Cavity, Percutaneous Approach (ICD-10-PCS; 2022-07-02)
PROC: 0W9930Z Drainage of Right Pleural Cavity with Drainage Device, Percutaneous Approach (ICD-10-PCS; 2022-07-02)
DX: J93.11 Primary spontaneous pneumothorax (principal); J93.82 Other air leak; F17.200 Nicotine dependence, unspecified, uncomplicated; Z79.52 Long term (current) use of systemic steroids; Z79.899 Other long term (current) drug therapy; Z28.310 Unvaccinated for COVID-19; Z20.822 Contact with and (suspected) exposure to COVID-19
CPT/HCPCS: 36415; 71045; 71250; 80048; 80053; 80076; 81003; 83735; 83880; 84100; 84484; 85025; 85027; 85379; 93005; 94760; 96374; 96375; 99285; A4216; J1170; J1650; J2270; J2405; J7030; U0003

== ENCOUNTER 2023-04-09 21:25 | Emergency (ER) | payer SELFPAY ==
--- OUTSIDE RECORDS SUMMARY | 2023-04-09 22:03 | XMS REPORT | Continuity of Care Document ---
:[address] [facility] t Address [address] [facility] [place] [address] Care Team Providers Name Role Phone JHOANA VILLAGOMEZ Attending Clinician Unavailable JHOANA VILLAGOMEZ Attending Clinician Unavailable Jhoana Villagomez MD Attending Clinician Timbo Hernández MD Attending Clinician Bridgett Robles Attending Clinician Unavailable JHOANA VILLAGOMEZ Admitting Clinician Unavailable Problems Condition Condition Condition Status Onset Resolution Last Treating Co mments Source Name Details Category Date Date Treatment Clinician Date Spontaneou Spontaneou Disease Active [facility] Me dical ax ax 00 Center Allergies, Adverse Reactions, Alerts Allergy Allergy Status Severity Reaction(s) Onset Inactive Treating Comm ents Source Name Type Date Date Clinician Beef Propensi Active Nausea And Severe [facility] or ty to Vomiting 07-07 Vomiting, Colle ge adverse 00:00: bloating, of reaction 00 nausea, Medicin s to e food BEEF Allergy Active High N\\T\\V [facility] CONTAINI 9-03 NG 00:00: PRODUCTS 00 Beef Propensi Active Nausea And Severe [facility] to Vomiting 903 Vomiting, [place] es ng adverse 00:00: bloating, Medica l Products reaction 00 nausea, Cente r s NO KNOWN Allergy Active [facility] ALLERGIE S Social History Social Habit Start Date Stop Date Quantity Comments Source Tobacco use and 2022-07-25 2022-07-25 Smokeless tobacco [facility] exposure 00:00:00 00:00:00 non-user of Medicine Alcohol intake 2022-07-25 2022-07-25 Lifetime [facility] Col lege 00:00:00 00:00:00 non-drinker of Medicine (finding) Sex Assigned At [address] [facility] [address] [facility] Smoking Status Start Date Stop Date Source Never smoked tobacco [facility] Nitin ege of Medicine Medications Ordered Filled Start Stop Current Ordering Indication Dosage Frequency Signature Comments Components Source Medication Medication Date Date Medication? Clinician (SIG) Name Name gabapentin Yes 300mg Take 1 [facility] or (NEURONTIN) 07-25 capsule by Co llege 300 MG 00:00: mouth 3 of capsule 00 times Medicin daily. e tramadol Yes 1{tbl} Take 1 [facility] r (ULTRAM) 50 07-25 Tablet by Col lege MG tablet 00:00: mouth of 00 every 6 Medicin hours as e needed. gabapentin 2021- No [id number] 200mg Take 2 Michele (NEURONTIN) 07-18 Capsules Col lege 100 MG 00:00: 00:00 by mouth 3 of capsule 00 :00 times Medicin daily for e 7 days. Lidocaine 4 2021- No 1{patch Place 1-3 [facility] % PTCH 07-11 } Patches College 00:00: 04:59 onto the of 00 :00 skin as Medicin needed. e tramadol 2021- No 50{tbl} Take 50 [facility] (ULTRAM) 50 07-11 Tablets by C ollege MG tablet 00:00: 00:00 mouth of 00 :00 every 6 Medicin hours as e needed. lidocaine 2021- No 1{patch Place 1-[address] [facility] (LIDODERM) 07-11 } patches [facility] 4 % patch 00:00: 23:59 onto the Med ical 00 :00 skin daily Center as needed (pain) for up to [address] directly over any incisions. acetaminoph 2021- No 1000mg Take [address] en 07-11 tablets [facility] (TYLENOL) 00:00: 23:59 (1,000 mg Me dical 500 MG 00 :00 total) by Center tablet mouth every 6 (six) hours as needed for Pain for up to 10 days. senna No 8.6mg Take [address] (SENOKOT) 07-11 tablet [facility] 8.6 mg 00:00: 23:59 (8.6 mg Medical tablet 00 :00 total) by Center mouth every night as needed for Constipati on for up to 10 days. traMADoL No 50mg Take [address] (ULTRAM) 50 07-11 tablet (50 L ukes mg tablet 00:00: 23:59 mg total) Me dical 00 :00 by mouth Center every 6 (six) hours as needed for Pain for up to 7 days. Max Daily Amount: 200 mg gabapentin 200mg [id number] Take [address] (NEURONTIN) 07-11 [id number] capsules [facility] 100 MG 00:00: 23:59 3D (200 mg Medical capsule 00 :00 total) by Center mouth 3 (three) times daily for 7 days. Vital Signs Vital Name Observation Time Observation Value Comments Source Systolic blood 2022-07-25 15:57:00 131 mm[Hg] [facility] pressure Medicine Diastolic blood 2022-07-25 15:57:00 98 mm[Hg] [facility] of pressure Medicine Heart rate 2022-07-25 15:57:00 93 /min [facility] Body temperature 2022-07-25 15:57:00 36.83 [facility] Body height 2022-07-25 15:57:00 167.6 cm [facility] Body weight 2022-07-25 15:57:00 82.555 kg [facility] BMI 2022-07-25 15:57:00 29.38 kg/m2 [facility] WEIGHT 2022-07-10 07:30:00 84.868 kg WEIGHT 2022-07-10 06:00:00 84.868 kg HEIGHT 2022-07-08 00:00:00 170 cm WEIGHT 2022-07-08 00:00:00 83.915 kg WEIGHT 2022-07-10 07:30:00 84.868 kg WEIGHT 2022-07-10 06:00:00 84.868 kg HEIGHT 2022-07-08 00:00:00 170 cm WEIGHT 2022-07-08 00:00:00 83.915 kg WEIGHT 2022-07-10 07:30:00 84.868 kg WEIGHT 2022-07-10 06:00:00 84.868 kg HEIGHT 2022-07-08 00:00:00 170 cm WEIGHT 2022-07-08 00:00:00 83.915 kg Heart rate 2022-07-11 12:06:00 90 /min [facility] Respiratory rate 2022-07-11 12:06:00 18 /min [facility] Oxygen saturation in 2022-07-11 12:06:00 94 /min [facility] Arterial blood by Medical Ce nter Pulse oximetry Systolic blood 2022-07-11 11:00:00 127 mm[Hg] [facility] Diastolic blood 2022-07-11 11:00:00 81 mm[Hg] [facility] Body temperature 2022-07-11 11:00:00 37 Sherry [facility] Body weight 2022-07-10 07:30:00 84.868 kg [facility] BMI 2022-07-10 07:30:00 29.37 kg/m2 [facility] Body height 2022-07-08 00:00:00 170 cm [facility] Procedures Procedure Date / Time Performing Clinician Source Performed XR CHEST 1 VIEW PORTABLE / 2022-07-11 11:09:00 Fahad Patino [facility] XR CHEST 1 VIEW PORTABLE / 2022-07-11 05:03:00 Fahad Patino [facility] BASIC METABOLIC PANEL 2022-07-11 04:32:00 [facility] W/[facility]T COUNT & AUTO 2022-07-11 04:32:00 Fahad Patino [facility] MAGNESIUM 2022-07-11 04:32:[address] [facility] PHOSPHORUS 2022-07-11 04:32:00 Sukumar, Fahad [facility] CBC W/PLT COUNT & AUTO 2022-07-11 04:32:00 Fahad Patino [facility] XR CHEST 1 VIEW PORTABLE / 2022-07-10 06:31:00 Alisson Amin [facility] BASIC METABOLIC PANEL 2022-07-10 05:55:00 Alisson Amin [facility] MAGNESIUM 2022-07-10 05:55:00 Alisson Amin [facility] PHOSPHORUS 2022-07-10 05:55:00 Alisson Amin [facility] CBC W/PLT COUNT & AUTO 2022-07-10 04:31:00 Alisson Amin [facility] CBC W/PLT COUNT & AUTO 2022-07-10 04:31:00 Alisson Amin [facility] (CELLAVISION MANUAL DIFF) 2022-07-10 04:31:00 Alisson Amin [facility] BASIC METABOLIC PANEL 2022-07-09 13:25:00 Alisson Amin [facility] MAGNESIUM 2022-07-09 13:25:00 Alisson Amin [facility] PHOSPHORUS 2022-07-09 13:25:00 Alisson Amin [facility] CBC W/PLT COUNT & AUTO 2022-07-09 13:25:00 Alisson Amin [facility] CBC W/PLT COUNT & AUTO 2022-07-09 13:25:00 Alisson Amin [facility] XR CHEST 1 VIEW PORTABLE / 2022-07-09 08:06:00 Alisson Amin [facility] BASIC METABOLIC PANEL 2022-07-09 01:00:00 Alisson Amin [facility] MAGNESIUM 2022-07-09 01:00:00 Alisson Amin [facility] PHOSPHORUS 2022-07-09 01:00:00 BrennanAlisson [facility] CBC W/PLT COUNT & AUTO 2022-07-09 00:59:00 BrennanAlisson [facility] CBC W/PLT COUNT & AUTO 2022-07-09 00:59:00 BrennanAlisson [facility] HC ARTERIAL DOPPLER ARM 2022-07-08 21:06:00 BrennanAlisson [facility] XR CHEST 1 VIEW PORTABLE / 2022-07-08 14:06:00 BrennanAlisson Miguel tam[facility] COMPREHENSIVE METABOLIC 2022-07-08 14:06:00 BrennanAlisson Fern [facility] MAGNESIUM 2022-07-08 14:06:00 BrennanAlisson Fern [facility] PHOSPHORUS 2022-07-08 14:06:00 BrennanAlisson Fern [facility] CBC W/PLT COUNT & AUTO 2022-07-08 14:06:00 BrennanAlisson [facility] CBC W/PLT COUNT & AUTO 2022-07-08 14:06:00 BrennanAlisson [facility] ECG 12-LEAD 2022-07-08 14:01:15 BrennanAlisson [facility] ECG 12-LEAD 2022-07-08 14:01:15 Unknown, Hl7 Doctor [facility] POCT-GLUCOSE METER 2022-07-08 14:00:00 Jhoana Villagomez [facility] TISSUE EXAM 2022-07-08 12:29:00 Jhoana Villagomez [facility] THORACOSCOPY 2022-07-08 11:25:00 Jhoana Villagomez [facility] (VATS),PLEURODESIS Medical Cente r THORACOSCOPY (VATS),WEDGE 2022-07-08 11:25:00 Jhoana Villagomez [facility] RESECTION W/ OR W/OUT Medical Ce nter LYMPHADENECTOMY ABORH, MANUAL 2022-07-08 00:44:00 Kate Daley [facility] SARS-COV2/RT-PCR ([facility] & 2022-07-08 00:43:00 Alisson Amin [facility] REF LABS) [facility] CBC W/PLT COUNT & AUTO 2022-07-07 22:29:00 Alisson Amin [facility] DIFFERENTIAL [facility] TYPE AND SCREEN, AUTOMATED 2022-07-07 22:29:00 Alisson Amin Cla [facility] CBC W/PLT COUNT & AUTO 2022-07-07 22:29:00 Alisson Amin [facility] DIFFERENTIAL [facility] MAGNESIUM 2022-07-07 21:30:00 Alisson Amin [facility] COMPREHENSIVE METABOLIC 2022-07-07 21:30:00 Alisson Amin [facility] PANEL [facility] PHOSPHORUS 2022-07-07 21:30:00 Alisson Amin [facility] PT/APTT 2022-07-07 21:30:00 Alisson Amin [facility] XR CHEST 1 VIEW PORTABLE / 2022-07-07 19:12:00 Alisson Amin Cla [facility] BEDSIDE [facility] EKG-SCANNED 2022-07-07 00:00:[address] [facility] Plan of Care Planned Activity Planned Date Details Comments Source Future Scheduled 2023-07-05 INFLUENZA VACCINE (Season [facility] Test 00:00:00 Ended) [code = INFLUENZA Med [facility] VACCINE (Season Ended)] Future Scheduled 2022-11-04 DEPRESSION SCREENING [facility] Test 00:00:00 (12+) [code = DEPRESSION Med [facility] SCREENING (12+)] Future Scheduled 2022-07-25 COVID-19 Vaccine (#1) [facility] Test 14:43:57 [code = COVID-19 Vaccine Med icine (#1)] Future Scheduled 2022-07-25 TETANUS SHOT (ADULT) [facility] Test 14:43:57 [code = TETANUS SHOT Medicin e (ADULT)] Future Scheduled 2022-07-25 BMI FOLLOW UP PLAN [code [facility] Test 14:43:57 = BMI FOLLOW UP PLAN] Medici ne Future Scheduled 2022-07-25 Hepatitis C screening Ba [facility] Test 14:43:57 (procedure) [code = Medicine [id number]] Future Scheduled 2022-07-25 Human immunodeficiency [facility] Test 14:43:57 virus screening Medicine (procedure) [code = 261635092] Future Scheduled 2022-07-25 FLU VACCINE > 6 MONTHS [facility] Test 14:43:57 [code = FLU VACCINE > 6 Medi cine MONTHS] Future Scheduled 2017 Lipid panel (procedure) [facility] Test 00:00:00 [code = 51095887] Medical Ce nter Future Scheduled 2001 DTAP/TDAP/TD VACCINES ([address] [facility] Test 00:00:00 - Tdap) [code = Medical Cent er DTAP/TDAP/TD VACCINES (1 - Tdap)] Future Scheduled 2000 HEPATITIS C SCREENING [facility] Test 00:00:00 [code = HEPATITIS C Medical Center SCREENING] Future Scheduled [address] [facility] Test 00:00:00 Counseling and Screening Med ical Center (12+) [code = Tobacco Cessation Counseling and Screening (12+)] Future Scheduled 1982 COVID-19 VACCINE (#1) [facility] Test 00:00:00 [code = COVID-19 VACCINE Med ical Center (#1)] Encounters Start End Encounter Admission Attending Care Care Encounter Source Date/Time Date/Time Type Type Clinicians Facility Department ID 2022-07-25 2022-07-25 Office STEPHANIE VILLAGOMEZ [id number] [facility] 10:51:28 10:51:28 Visit JHOANA AMBULATOR [id number] College Y [id number] Medi colette 810 e 2022-07-25 2022-07-25 Outpatient [facility] [id number] [facility] 10:36:58 10:36:58 [facility] e [facility] Medicin e 2022-07-07 2022-07-11 Inpatient UR STEPHANI VILLAGOMEZ Surgery [id number] [facility] 16:47:00 13:31:00 JHOANA 2022-07-07 2022-07-11 Hospital KARLA VillagomezC [id number] 16:47:00 13:31:00 Encounter [facility] 2022-07-08 2022-07-08 Outpatient [facility] [id number] [facility] 00:00:00 23:59:00 [facility] e [facility] Medicin e 2022-07-08 2022-07-08 Surgery Chaya [facility] [id number] 10:30:00 17:37:00 [facility] 2022-07-08 2022-07-08 Anesthesia Timbo Hernández [facility] [id number] 11:26:00 13:42:00 Event Travis Bridgett Pagan [facility] 2022-07-08 2022-07-08 Orders [facility] [id number] 00:00:00 00:00:00 Only [facility] 2022-07-07 2022-07-07 Outpatient [facility] [id number] [facility] 16:47:00 23:59:00 [facility] Medicin e 2020-06-22 2020-06-22 Outpatient [facility] PDPFEFA [facility] 00:00:00 00:00:00 [id number] Results Test Description Test Time Test Comments Results Result Comments Source Tissue Exam 2022-07-12 11:24:09 Test Item Value Reference Range Interpretation Comme nts Case Report (test code = 104) Surgical Pathology Report Case: [id number] Authorizing Provider: Jhoana Villagomez Jr., Collected: 07/08/2022 12:29 PM Ordering Location: [address] Received: 07/10/2022 08:25 AM Service Pathologist: Angela Ruiz MD Specimens: A) - Lung, Right Upper and Middle Lobes, RUL wedge 1 B) - Lung, Right Upper and Middle Lobes, RUL wedge 2 C) - Pleura, Right Parietal Pleura DIAGNOSIS (test code = 3220) g0rfeMUnTYCgu8dpJQEppNXzWzJcUtZyFbMfCg pc dWMxIHtccnRmMVxlcGljOTYwMlxhbnNpXHNwbHRw V1EthyzoLWajAD3kSP8gpDnesGEqwORjZBOzZwQj p1bga571kSMpc0qeAOWIzisrjUg6bHjyC00yd2X1 WxhfA09jwWYiLVY2JUTlFAUuxIQdMJHiTVB4DDEh fNQmF8onBKPiTK3zncfvPPnnLFgtOVFuuPE7DBAg sLPaQ2WpNRDrDTlqUSRukep8SwEtTs8apTDunPua WWqkFIScTFDjIAyxJGSeXlNuLD0rVTHTGdzdOotA FCSrHBTGLODdFJ9EYQ7FRLXSPUCSQ3BCLjagJ6YF D0KwNuRTAPJPJG4OKgR7TPVfjmUnXCAjAGoSOJZQ OOXBVLMZJRTxmnVnNOKrHG8HXIIJSAzFLrBLYH9F EIBCKzIAJ5lPMUVxR7gAKVHYRESHZICrMqFRD7RJ CIUgG94RB9EGKKaGTgITGsNvDa3VZOhqKv3YPRkR IbDRS2IGECIwvVEvWLQqTDTLYKCWWGAAPNyDVLGS VUDENN3RFDYbfzMnWGZyLdBBCJCGSvGuVy4EZW5W JYbOVjGPN8gyzCXtKPItgsZCObFXUT3WSMFYZLcQ VCBVUFBFUiBBTkQgTUlERExFIExPQkVTLCBXRURH SKDABTORS0SQT54xMcdlrXOaMTUuUNEMATFRBpjG OAWZHnBHBi3NUfTXYXSNRfgKLYWdrJSbHDHnLGCT IsVOFajUXW9JVRxDOyllUXLGSS5IEZxMERNJLSVF PW6LHbvURSBMJCHADJbZHfCAF43GOOAWNV7WBZNq drVcKKQaYkQBFPIQUsSeGg5OKA7MQWgUYgUAX5sc pKWhLKRqobYqxJEqSFCnGZRFM6qQTHBDWnzPCQIA EJHRDKIJUTjhIUxOCHWHC3COCYe1AECpeeKdSLMm H3dLK85HIbLFEGTPJdwROVMsH7rLVIGXR9PLNl1H MYjJIYArlJFlQGUgJYGLSMdAYCvHAZWQK4ZrXUWU SRgKJX2KSHfcMQX6s9bjfBExRZZokORpODNyZFye xhYzECIaUsgpedidOVNiKTI2qjPePXIaNAfnCLWf WFykGt8vlFMllHlbKnYiHEIef2htbnGGzawldFd6 q8vzRPRiFxM0rFKfBDzdB6tsxqTqyPFkAHEgYBo2 pW76BURweK5gmLApTWbiylFgTnV5YUayFKTmSfM2 KVWofHElBKAtS9icSMPbBWiwWAUkCEqqcVWrMRL4 rAkgc2D2xGScmAJkhTnrUjYfEiIkStMSm8KjJKv7 bUnfE7FcERTnIiX2fBCuGLDdKFihDAJgSHZqdzQ3 aF27SEtoenK7rJNne7Svk28oh033mW5rwAYvUIU7 FRGqHAOimEVoKTFnZIB4EFIcvFSmV6vrDMEyUM4n fiacWBowRJupJGPzrAE1ALVauEEjI1WvEGUlVAun MGZquef9CvOlOc8ylKWbdFysZEugm2dlq7svzYPm Uoe3GRAaQeLkLrrnKSfci5Jgx4duCWLomy3gETS2 mLHbbWlao9A7kEOlBSJptXPhKXGzMZ4exZTyKFCu eT3xketkNLFaTeIcuqfnJPAopJvzshLkWd7kzFqq BHS8PLiiR0ksvK4uOwP4FBdoM1sfzI4oVBm8BHzi VEQwtLD4dmE9ANPgpNMjE1RopO6bVQMlZN4xbge6 w2qzWFB6PYjmJICxQbS5zjR7AUSnbWFbYMTfgOpt HTrql307CPM4LeGmRZCxb3NiF8DovMsiB46npNxs T75qXAHakVjobI0yjSdbqZ8yGeRaFvVvGOoipTul ES0kCYBkG8fyrBLtWLBhBYCrP1daGgUtiE4fnVbg NXuiblVeSIExCgi2FSWiwLGgASXdCth9BHGcMJTa X95dqptpGNS0cD0oe4hol3ZpGJosEDH3NYHzz51v SSvswoA7WMsdNl2aDrRfHJX2CZflIRS3qG== CPT Code(s) (test code = 3357) a0njwUZtGLUwlMB1OfQlFZDzt0bbe0NdeVWg cGFy BBzpcSSdxeWzfr31iFZ9fI90BG4gMMSuAmF4NWDr diK4Usc4ODVkNBIxnXJxK780l6bud7qysgIthSC7 hEraFLGdggujGdE6WHdyZDTmtgnsBYo0GKfmNWMd wXM1RYSnzOJsB3SiZNAbRE5lmls4NAG3ONamOSZp JxG1XGIcvJHbKNAjsPyhQMyva929CND3WoLnQKLd qpKpnYpmtB1aOwCkYFI8GTRfE4gqUPRgwyX4MRKz NVxwYXJ9 CLINICAL HISTORY (test code = 3356) q2ncyNSrYRCfxKJ1KwTqXOZwm7bzq6P sdHBncGFy GMzgoJPcpzYhpg99qBZ6tK94DN4gMVBjZqZ9UMTn mrT0Fxg1KWJkDFBgsCJgJ734y7tbh8ayruRuzBY6 pDpuSEWfedpmZcL2YPyhRRTufdmoRNr8YRamSFFc dUW5UERgfHNuK0CoDRMxYJ1kogm1YZF5XZayUYVu HhF7ACHafLByALZjuBukVDuky986NLY9LaMbVNMg mpWhfLocrX3gPuFqESBYwA5wyPDsSP90tqCtuyC1 jA19tB5gLXwcaDVypF== GROSS DESCRIPTION (test code = d7ryfMHzISHxeIHENBEaF4ecwzSdPEUwnOTx [facility] [id number]) cuzzGXcxRB3iFK0pkGzfxZJkuDIgBH2CFLLeOjAk YOCoeEDboyEoTpOjEAZdeZIwaJH5LWXgEL1lbood TQmbJEylDJSutqB7RQJnuHOeV7IpBCFoAA0qmvdm IPV5TBtccQ2mwzUHAlweYy1jqTAhrGzfSlHzMiEe UPZpJEFxKYWptRgrWCAgXSq2vN7DHmoaH29rp6Q4 Pjd6XSSaJNJdO1CrPR2zLKTqsYAyV77GQdipDBD0 TRKEPlunVOXxPW3Gt0zxUSJpdHLwABU7CArnoHTw XGQtGUNtOMs8IYVbOKgdnFDzSV8ibUuwEckueHrx v4DtlOWtKJnpAHKrEUExCEddTKUbBL8FIwHiEQD1 JNEjLgncDDe0BNe7YI5CZxVwWVJaPJl7NHG1APSy CXo0XEskNW2HYUVyZBi9JQO5WWP9NXD0XxHeVCQn ZxAeBPFtDFIaHOzlRCopoPZaTD2rxUfvuQXkfmTU UzPFtB6oBFIDnSfojVJUwLIdotMvglUgHWpkBWtz SQerWlTxLmkeSOXkXVupJCXzH42bf5YYw9CsFR9L VCq2vdAtjgywdK0lWAMdqhZzVKrqoLOzI6ktL1El VPPaGdJgQiSpGVw4LHHbDpVta5fyaAIoJEiiREL6 rTIxLUCuLYVwEBZvQI34A6QwtlNbBPyuCRQSHOLk KQEvoBSiQzvbmcegqYHqcYAuZHCbZH1gPM2yQSZd ULLkf3UxpoYilGDnAFI7IcMsOrvmUY7fCDhjIu7w TKskXW11DELdVBd1aviia0VtX9GpRPAyJTXsvTG4 cmEgZGlzcGxheXMgYSAyLjIgeCAxLjAgYmxlYiBz [file] dCBVcHBlciBhbmQgTWlkZGxlIExvYmVzLlxwYXIg NApnXASnJ58qr1OAn8JiRW8MQDf0lnEooiqcwY5m EEFmykWxCBzenGMoP9ztH2BkDDBgWwWiQpHzEYw3 SMFbCwQys7awoSZuSJsnFUQ3sFVbMUHiDHAlNARt OC97A4UjclDaJHlnSYHBXSTdXVQbiGBeCixhxnyf sAAziPGgVCEmcUntVSkrRBaeSnDkHYjoVXSuSs2r GApnBHBhFwP8MUNxRVM8TCPtJOXqpDQuoI7gZKuy WUhzRxPMwXJhbVhdkHHcUMdfHAB3cxRhJGBziwUr Uukiyy66vSZgZJChBBosyV1yn03sk2AxDzYWbSAu s1IrC3snNE9joJGov3BtvQUmrEomh5PyoChgyaTl FSTtMTTvniCbzHUfFFQtk37nIZNxseKipKauKYOo FRPtGYIeteKnmN2yCOvxhYluaf1kF6Ypk5MzkUWx qO4hck2sTRWjPZAmuTTamX4njoNyinJnfmIksrFs kFFqrCDpcVV7XDNad9VtsELluXhcxKs9PGkpWYSr SGZ7EjmtJGDkDQqmsNWlHG4CDM6qWHTpAVC7OGec pdVvR2ZoWV6hNjLyWXTizX5clYKcKZ1PUZJkzkEG ClxjZjBcZnMyMiANClxwbGFpblxlcGljTmVzdERv IqNejKpskT44VIEmbBWpKRT8OR4nPALyszspGJFz ELPyBFW4KWvjyS83dQIvMNIqJJTgoDBikZ9Hd2ci WXWzbFCdPDX9WQvaeTJbLIOzVVBuUFwcBcBvU6QY LCHkHgY8AhU0OIZwZIu9JWjeN1QCQLJcVKR0AFm4 QZg0QtW1WIk9OPXGJf7yNkN0FXg9YcZ5XEP2OHrf YWgmaISzSJnzNqBVxkoffGOuYPRwHUfmzxX5VXXy QXIgeDlqpB1jDm7uRHoqjCIwQqvoTJRgPBuuUIWa R25as9GVu2PdGJ1HRGt2teSithhveD4bHYDwakWi KNzucAYcY5zvYqOiJQBJNUQgrMQfOFEvwrPlnZDi PGDxdGYuFSmagQiyjSuvSAFqtXmozvKkE0S2haRa UQ5wUHXhUIEkF3MgUXSnP87tXURucY1rMAVtHB9m JDYhmGpvaFYcRXHlZXBrwDHdaXC1ivVkLEakPMYd AZUvTiFjpUSjNV0iLTfmWB1aZAMlEVbntdGcmSbb sqWzi9A5aM4hKN2fVKniuqRsHBXnMWumZJdrXSVz mPyabJm5GFFymEHbRA0lDPAejEYuv83llHWvZM6r uUChqIrwg4SbQUlgjPcfMHK4JLYeVUUrZXOzuL6z WPS3nQCewLJwLQFRwNPkx6EpQ3phMX8zJUuuaZor xTJdVDl1RFS5ZU1tWA8fLHhwy8ZfFNqkf8wbhhWm JAAsKToyHK14qOPcAXJzSDRGCLBwYHHbpyQpbEz7 HPCtBXY4uK4glfKflqRci0RwrRm3uHKaJLdmPZIu JTHsChlulO6qIBoipD4jKIFqLKenUEGwM1MlwD4i JZ3YOryiZLYwGNQEQ5ExC46ERbqunJLzcqeojLpm CkKhtXOzXrOmrGgesZ01KIGnyLYwSLT7JB6gVLDy ftitBWIyTBBmCNQ6SWujzF07cDKeSCMmIJDuwBGb nJ2HNCUeAYA7GUmigC19oZJvME1NAVUwTII4HSTe jXSlKMB9AL5dpI0HrW== MICROSCOPIC DESCRIPTION (test code = [id number]ars1 dHBncGFy 3371) YIyfwYUzqrRawp44zED8cD46VU4qOFDeSeS8AMMn qtK2Gny6JQDmCWApuUAyR933d7cef8zswuLfmAS1 gCnwOUSjsujnOdK8HLidPHKhstozSEm1TQpsSYLl xMD7UWJdiQZzE0DyAZRrRQ2zedp8QMU8PIysWGAh ZcG5WBYwcNUeTPNtbFrtWYklc970NWO4SkVzZURp kcZahSshgH2bLyEdSEXODCRnn1PpHYBnEBLaovqz YXJkXHBhcn0= [facility] [id number] 11:24:09Surgical Pathology Report Case: [id number] Authorizing Provider: Jhoana Villagomez Jr., Collected: 07/08/2022 12:29 PM Ordering Location: [address] Received: 07/10/2022 08:25 AM Service Pathologist: Angela Ruiz MD Specimens: A) - Lung, Right Upper and Middle Lobes, RUL wedge 1 B) - Lung, Right Upper and Middle Lobes, RUL wedge 2 C) - Pleura, Right Parietal Pleura A. LUNG, RIGHT UPPER AND MIDDLE LOBES, WEDGE RESECTION#1: - PLEURAL BLEB - UNDERLYING LUNG PARENCHYMA WITH MARKED VASCULAR CONGESTION AND FOCAL FOREIGN BODY GIANT CELL REACTION - NEGATIVE FOR MALIGNANCYB. LUNG, RIGHT UPPER AND MIDDLE LOBES, WEDGE RESECTION#2: - CHRONIC FIBRINOUS PLEURITIS - UNDERLYING LUNG PARENCHYMA WITH MARKED VASCULAR CONGESTION - NEGATIVE FOR MALIGNANCYC. RIGHT PARIETAL PLEURA, PLEURECTOMY: - CHRONIC PLEURITIS WITH EOSINOPHILIA - NEGATIVE FOR MALIGNANCY Signing Pathologist Direct Phone Line: [phone] signed by Angela Ruiz MD on 07/12/2022 at 11:24 [id number] pneumothoraxA. Lung, Right Upper and Middle Lobes.Received fresh labeled with the patient's name, MRN and "lung, right upper and middle lobes" is a 8.4 g, 5.2 x 2.0 x 1.4 cm lung wedge. The pleura displays a 2.2 x 1.0 bleb surrounded by fibrous tissue. The remaining pleura is purple and smooth. The blood is 1.7 cm from the stapled margin. The specimen is serially sectioned to reveal fibrosis subjacent to the bleb. No gross lesions are identified. The remaining parenchyma is maroon consolidated to spongy. [place] sections are submitted.Ink code:Blue: Pleura surrounding bleb wi th fibrosisGreen: MarginSection code:A1: 1 full cross-section of bleb to margin, bisectedA2: 1 full cross-section of bleb to margin, bisectedA3: 1 full cross- section of fibrotic pleura adjacent to blebB. Lung, Right Upper and Middle Lobes.Received fresh labeled with the patient's name, MRN and "lung, right upper middle lobe" is a 3.0 g, 4.7 x 1.5 x 0.8 cm lung wedge. The pleura is purple and fibrotic(50%) to smooth. The specimen is serially sectioned to reveal maroon, consolidated parenchyma with no gross lesions. The specimen is entirely submitted sequentially in B1-B4.Ink code:Green : marginC. Pleura.Received fresh labeled with the patient's name, medical record number and "right parietal pleura" is an 11.3 x 11.0 x 0.2 cm irregular portion of lavender-dykes, slightly thickened fibromembranous tissue with attached adipose tissue. The specimen displays exudate. No gross lesions are identified. [place] sections are submitted in C1-C3.ALBER Ling PA ([facility])cmPerformed.RAD, CHEST, 1 VIEW, NON [id number] 15:11:00Reason for exam:->ChT removalShould this be performed at the bedside?->[facility] : 1980 Sex: MFINAL REPORT RAD, CHEST, 1 VIEW, NON DEPT INDICATION: ChT removal COMPARISON: 07/11/2022 TECHNIQUE: Portable frontal view of the chest. FINDINGS: Support Lines and Devices: The right chest tube was removed. Lungs and pleura: Unchanged airspace and pleural opacities. No pneumothorax identified. Heart and mediastinum: Stable contours. Stable surgical changes. Additional findings: None. IMPRESSION: No pneumothorax identified following right chest tube removal. Signed: Dav Robin MDReport Verified Date/Time: 07/11/2022 15:11:43 Reading Location: [address] Reading Room RAD, CHEST, 1 VIEW, NON [id number] 09:02:00Reason for exam:->s/p right VATS, wedge j7Cozwav this be performed at the bedside?->Yes [facility] : 1980 Sex: MFINAL REPORT RAD, CHEST, 1 VIEW, NON DEPT INDICATION: s/p right VATS, wedge x2 COMPARISON: Prior day's exam TECHNIQUE: Portable frontal view of the chest. FINDINGS: Support Lines and Devices: Stable. Lungs and pleura: Airspace opacities in the right lung, increased compared to prior exam.No pneumothorax identified. Heart and mediastinum: Stable contours. Stable surgical changes. Additional findings: None. IMPRESSION: Right lung airspace opacities, increased compared to prior exam, suggesting atelectasis Signed: Dav Robin MDReport Verified Date/Time: 07/11/2022 09:02:09 Reading Location: [address] Reading Room [id number] 07:42:50 Test Item Value Reference Range Interpretation Comments MAGNESIUM (BEAKER) (test code = 1.9 mg/dL 1.6-2.6 627) Bar Machine Operator Multiple Spindle ID - PIAYA [id number] 07:42:50 Test Item Value Reference Range Interpretation Comments PHOSPHORUS (BEAKER) (test code = 3.1 mg/dL 2.3-4.7 604) Bar Machine Operator Multiple Spindle ID - PIAYA LBASIC METABOLIC [id number] 07:42:49 Test Item Value Reference Range Interpretation Comments SODIUM (BEAKER) 137 meq/L 136-145 (test code = 381) POTASSIUM 4.5 meq/L 3.5-5.1 (BEAKER) (test code = 379) CHLORIDE (BEAKER) 102 meq/L 98-107 (test code = 382) CO2 (BEAKER) 25 meq/L 22-29 (test code = 355) BLOOD UREA 8 mg/dL 7-21 NITROGEN (BEAKER) (test code = 354) CREATININE 0.78 mg/dL 0.57-1.25 (BEAKER) (test code = 358) GLUCOSE RANDOM 108 mg/dL 70-105 H (BEAKER) (test code = 652) CALCIUM (BEAKER) 8.9 mg/dL 8.4-10.2 (test code = 697) EGFR (BEAKER) 116 Interpretatio n of eGFR (test code = mL/min/1.73 values Stage De scription 1092) sq m Result G1 Becka l or high >=90 G2 Mildly decreased 60-89 G3a Mildl y to moderately 45-5 9 G3b Moderately to s everely 30-44 G4 Severl y decreased 15-29 G5 Kidney failure <15Reported eGF R is based on the CKD-EPI 2020 equation that d oes not use a race coefficientEsti mated GFR is not as accur ate as Creatinine [place] cash in predicting glom erular filtration rate . Estimated GFR is not appl icable for dialysis patien ts Bar Machine Operator Multiple Spindle ID - PIAYA LCBC W/PLT COUNT & AUTO [id number] 05:10:31 Test Item Value Reference Range Interpretation Comments WHITE BLOOD CELL COUNT (BEAKER) 8.8 K/ L 3.5-10.5 (test code = 775) RED BLOOD CELL COUNT (BEAKER) 4.53 M/ L 4.63-6.08 L (test code = 761) HEMOGLOBIN (BEAKER) (test code = 13.9 GM/DL 13.7-17.5 410) HEMATOCRIT (BEAKER) (test code = 41.7 % 40.1-51.0 411) MEAN CORPUSCULAR VOLUME (BEAKER) 92.1 fL 79.0-92.2 (test code = 753) MEAN CORPUSCULAR HEMOGLOBIN 30.7 pg 25.7-32.2 (BEAKER) (test code = 751) MEAN CORPUSCULAR HEMOGLOBIN CONC 33.3 GM/DL 32.3-36.5 (BEAKER) (test code = 752) RED CELL DISTRIBUTION WIDTH 12.5 % 11.6-14.4 (BEAKER) (test code = 412) PLATELET COUNT (BEAKER) (test 356 K/CU MM 150-450 code = 756) MEAN PLATELET VOLUME (BEAKER) 9.0 fL 9.4-12.4 L (test code = 754) NUCLEATED RED BLOOD CELLS 0 /100 WBC 0-0 (BEAKER) (test code = 413) NEUTROPHILS RELATIVE PERCENT 71 % (BEAKER) (test code = 429) LYMPHOCYTES RELATIVE PERCENT 14 % (BEAKER) (test code = 430) MONOCYTES RELATIVE PERCENT 10 % (BEAKER) (test code = 431) EOSINOPHILS RELATIVE PERCENT 4 % (BEAKER) (test code = 432) BASOPHILS RELATIVE PERCENT 1 % (BEAKER) (test code = 437) NEUTROPHILS ABSOLUTE COUNT 6.23 K/ L 1.78-5.38 H (BEAKER) (test code = 670) LYMPHOCYTES ABSOLUTE COUNT 1.18 K/ L 1.32-3.57 L (BEAKER) (test code = 414) MONOCYTES ABSOLUTE COUNT (BEAKER) 0.87 K/ L 0.30-0.82 H (test code = 415) EOSINOPHILS ABSOLUTE COUNT 0.38 K/ L 0.04-0.54 (BEAKER) (test code = 416) BASOPHILS ABSOLUTE COUNT (BEAKER) 0.06 K/ L 0.01-0.08 (test code = 417) IMMATURE GRANULOCYTES-RELATIVE 1 % 0-1 PERCENT (BEAKER) (test code = 2801) RAD, CHEST, 1 VIEW, NON [id number] 08:34:00Reason for exam:->s/p right VATS, wedge p2Iqcunu this be performed at the bedside?->[facility] 1980 Sex: MFINAL REPORT RAD, CHEST, 1 VIEW, NON DEPT INDICATION: s/p right VATS, wedge x2 COMPARISON: Prior day's exam TECHNIQUE: Portable frontal view of the chest. FINDINGS: Support Lines and Devices: Stable. Lungs and pleura: Unchanged airspace and pleural opacities. No pneumothorax identified. Heart and mediastinum: Stable contours. Stable surgical changes. Additional findings: None. IMPRESSION: 1.No significant change from prior exam.2. Right lung volume loss and postoperative changes. Signed: Dav Robin MDReport Verified Date/Time: 07/10/2022 08:34:54 Reading Location: [address] Reading Room [id number] 06:56:29 Test Item Value Reference Range Interpretation Comments PHOSPHORUS (BEAKER) (test code = 3.0 mg/dL 2.3-4.7 604) Bar Machine Operator Multiple Spindle ID - NAVI WBASIC METABOLIC [id number] 06:56:28 Test Item Value Reference Range Interpretation Comments SODIUM (BEAKER) 136 meq/L 136-145 (test code = 381) POTASSIUM 4.0 meq/L 3.5-5.1 (BEAKER) (test code = 379) CHLORIDE (BEAKER) 102 meq/L 98-107 (test code = 382) CO2 (BEAKER) 27 meq/L 22-29 (test code = 355) BLOOD UREA 14 mg/dL 7-21 NITROGEN (BEAKER) (test code = 354) CREATININE 0.74 mg/dL 0.57-1.25 (BEAKER) (test code = 358) GLUCOSE RANDOM 93 mg/dL 70-105 (BEAKER) (test code = 652) CALCIUM (BEAKER) 8.8 mg/dL 8.4-10.2 (test code = 697) EGFR (BEAKER) 117 Interpretatio n of eGFR (test code = mL/min/1.73 values Stage De scription 1092) sq m Result G1 Becka l or high >=90 G2 Mildly decreased 60-89 G3a Mildl y to moderately 45-5 9 G3b Moderately to s everely 30-44 G4 Severl y decreased 15-29 G5 Kidney failure <15Reported eGF R is based on the CKD-EPI 2020 equation that d oes not use a race coefficientEsti mated GFR is not as accur ate as Creatinine [place] cash in predicting glom erular filtration rate . Estimated GFR is not appl icable for dialysis patien ts Bar Machine Operator Multiple Spindle ID - NAVI [id number] 06:56:28 Test Item Value Reference Range Interpretation Comments MAGNESIUM (BEAKER) (test code = 2.0 mg/dL 1.6-2.6 627) Bar Machine Operator Multiple Spindle ID Alicja MCELROY W(CELLAVISION MANUAL DIFF)2022-07-10 05:59:47 Test Item Value Reference Range Interpretation Comments NEUTROPHILS - REL 68 % (CELLAVISION)(BEAKER) (test code = 2816) LYMPHOCYTES - REL 17 % (CELLAVISION)(BEAKER) (test code = 2817) MONOCYTES - REL 9 % (CELLAVISION)(BEAKER) (test code = 2818) EOSINOPHILS - REL 3 % (CELLAVISION)(BEAKER) (test code = 2819) BANDS - REL (CELLAVISION)(BEAKER) 2 % 0-10 (test code = 2826) ATYPICAL LYMPHOCYTES - REL 1 % 0-0 H (CELLAVISION)(BEAKER) (test code = 2829) NEUTROPHILS - ABS 7.34 K/ul 1.78-5.38 H (CELLAVISION)(BEAKER) (test code = 2830) LYMPHOCYTES - ABS 1.84 K/ul 1.32-3.57 (CELLAVISION)(BEAKER) (test code = 2831) MONOCYTES - ABS 0.97 K/uL 0.30-0.82 H (CELLAVISION)(BEAKER) (test code = 2832) EOSINOPHILS - ABS 0.32 K/uL 0.04-0.54 (CELLAVISION)(BEAKER) (test code = 2834) BANDS - ABS (CELLAVISION)(BEAKER) 0.22 K/uL 0.00-0.80 (test code = 2840) ATYPICAL LYMPHOCYTES - ABS 0.11 K/uL 0.00-0.00 H (CELLAVISION)(BEAKER) (test code = 2858) TOTAL COUNTED (BEAKER) (test code = 100 1351) RBC MORPHOLOGY (BEAKER) (test code Normal = 762) WBC MORPHOLOGY (BEAKER) (test code Normal = 487) PLT MORPHOLOGY (BEAKER) (test code Normal = 486) ARTIFACT (CELLAVISION)(BEAKER) Present (test code = 3432) PLATELET CONCENTRATION Adequate (CELLAVISION)(BEAKER) (test code = 3438) Bar Machine Operator Multiple Spindle ID - Regina comments: Slide comments:CBC W/PLT COUNT & AUTO [id number] 05:01:57 Test Item Value Reference Range Interpretation Comments WHITE BLOOD CELL COUNT (BEAKER) 10.8 K/ L 3.5-10.5 H (test code = 775) RED BLOOD CELL COUNT (BEAKER) 4.55 M/ L 4.63-6.08 L (test code = 761) HEMOGLOBIN (BEAKER) (test code = 14.1 GM/DL 13.7-17.5 410) HEMATOCRIT (BEAKER) (test code = 41.6 % 40.1-51.0 411) MEAN CORPUSCULAR VOLUME (BEAKER) 91.4 fL 79.0-92.2 (test code = 753) MEAN CORPUSCULAR HEMOGLOBIN 31.0 pg 25.7-32.2 (BEAKER) (test code = 751) MEAN CORPUSCULAR HEMOGLOBIN CONC 33.9 GM/DL 32.3-36.5 (BEAKER) (test code = 752) RED CELL DISTRIBUTION WIDTH 12.5 % 11.6-14.4 (BEAKER) (test code = 412) PLATELET COUNT (BEAKER) (test 312 K/CU MM 150-450 code = 756) MEAN PLATELET VOLUME (BEAKER) 9.5 fL 9.4-12.4 (test code = 754) NUCLEATED RED BLOOD CELLS 0 /100 WBC 0-0 (BEAKER) (test code = 413) BASIC METABOLIC [id number] 14:07:50 Test Item Value Reference Range Interpretation Comments SODIUM (BEAKER) 130 meq/L 136-145 L (test code = 381) POTASSIUM 3.6 meq/L 3.5-5.1 (BEAKER) (test code = 379) CHLORIDE (BEAKER) 97 meq/L 98-107 L (test code = 382) CO2 (BEAKER) 24 meq/L 22-29 (test code = 355) BLOOD UREA 14 mg/dL 7-21 NITROGEN (BEAKER) (test code = 354) CREATININE 0.77 mg/dL 0.57-1.25 (BEAKER) (test code = 358) GLUCOSE RANDOM 130 mg/dL 70-105 H (BEAKER) (test code = 652) CALCIUM (BEAKER) 8.6 mg/dL 8.4-10.2 (test code = 697) EGFR (BEAKER) 116 Interpretatio n of eGFR (test code = mL/min/1.73 values Stage De scription 1092) sq m Result G1 Becka l or high >=90 G2 Mildly decreased 60-89 G3a Mildl y to moderately 45-5 9 G3b Moderately to s everely 30-44 G4 Severl y decreased 15-29 G5 Kidney failure <15Reported eGF R is based on the CKD-EPI 2020 equation that d oes not use a race coefficientEsti mated GFR is not as accur ate as Creatinine [place] cash in predicting glom erular filtration rate . Estimated GFR is not appl icable for dialysis patien ts Bar Machine Operator Multiple Spindle ID - SINDI [id number] 14:07:50 Test Item Value Reference Range Interpretation Comments MAGNESIUM (BEAKER) (test code = 2.0 mg/dL 1.6-2.6 627) Bar Machine Operator Multiple Spindle ID - SINDI [id number] 14:07:50 Test Item Value Reference Range Interpretation Comments PHOSPHORUS (BEAKER) (test code = 2.8 mg/dL 2.3-4.7 604) Bar Machine Operator Multiple Spindle ID - SINDI LCBC W/PLT COUNT & AUTO [id number] 13:41:22 Test Item Value Reference Range Interpretation Comments WHITE BLOOD CELL COUNT (BEAKER) 11.0 K/ L 3.5-10.5 H (test code = 775) RED BLOOD CELL COUNT (BEAKER) 4.82 M/ L 4.63-6.08 (test code = 761) HEMOGLOBIN (BEAKER) (test code = 14.7 GM/DL 13.7-17.5 410) HEMATOCRIT (BEAKER) (test code = 43.6 % 40.1-51.0 411) MEAN CORPUSCULAR VOLUME (BEAKER) 90.5 fL 79.0-92.2 (test code = 753) MEAN CORPUSCULAR HEMOGLOBIN 30.5 pg 25.7-32.2 (BEAKER) (test code = 751) MEAN CORPUSCULAR HEMOGLOBIN CONC 33.7 GM/DL 32.3-36.5 (BEAKER) (test code = 752) RED CELL DISTRIBUTION WIDTH 12.4 % 11.6-14.4 (BEAKER) (test code = 412) PLATELET COUNT (BEAKER) (test 309 K/CU MM 150-450 code = 756) MEAN PLATELET VOLUME (BEAKER) 9.1 fL 9.4-12.4 L (test code = 754) NUCLEATED RED BLOOD CELLS 0 /100 WBC 0-0 (BEAKER) (test code = 413) NEUTROPHILS RELATIVE PERCENT 70 % (BEAKER) (test code = 429) LYMPHOCYTES RELATIVE PERCENT 15 % (BEAKER) (test code = 430) MONOCYTES RELATIVE PERCENT 12 % (BEAKER) (test code = 431) EOSINOPHILS RELATIVE PERCENT 3 % (BEAKER) (test code = 432) BASOPHILS RELATIVE PERCENT 1 % (BEAKER) (test code = 437) NEUTROPHILS ABSOLUTE COUNT 7.66 K/ L 1.78-5.38 H (BEAKER) (test code = 670) LYMPHOCYTES ABSOLUTE COUNT 1.62 K/ L 1.32-3.57 (BEAKER) (test code = 414) MONOCYTES ABSOLUTE COUNT (BEAKER) 1.32 K/ L 0.30-0.82 H (test code = 415) EOSINOPHILS ABSOLUTE COUNT 0.28 K/ L 0.04-0.54 (BEAKER) (test code = 416) BASOPHILS ABSOLUTE COUNT (BEAKER) 0.06 K/ L 0.01-0.08 (test code = 417) IMMATURE GRANULOCYTES-RELATIVE 0 % 0-1 PERCENT (BEAKER) (test code = 2801) RAD, CHEST, 1 VIEW, NON [id number] 08:13:00Reason for exam:->s/p decorticationShould this be performed at the bedside?->Yes [facility] : 1980 Sex: MFINAL REPORT RAD, CHEST, 1 VIEW, NON DEPT INDICATION: s/p decortication COMPARISON: Prior day's exam FINDINGS: Portable frontal view of the chest. IMPRESSION: Support Lines: Right chest tube. Lungs and pleura: No significant pneumothorax. Lungs are hypoinflated. Mild bibasilar atelectasis. Heart and mediastinum: Stable contours. Stable surgical changes. Additional findings: None. Signed:Mario, Fahad MDReport Verified Date/Time: 07/09/2022 08:13:34 Arterial doppler arm, [id number] 07:34:16Ejection FractionSLEH ECHO HEARTLAB MKCK[facility]OS[facility]2022-09-05 01:38:32 Test Item Value Reference Range Interpretation Comments PHOSPHORUS (BEAKER) (test code = 4.5 mg/dL 2.3-4.7 604) Bar Machine Operator Multiple Spindle ID - SINDI LBASIC METABOLIC [id number] 01:38:31 Test Item Value Reference Range Interpretation Comments SODIUM (BEAKER) 132 meq/L 136-145 L (test code = 381) POTASSIUM 4.7 meq/L 3.5-5.1 (BEAKER) (test code = 379) CHLORIDE (BEAKER) 99 meq/L 98-107 (test code = 382) CO2 (BEAKER) 25 meq/L 22-29 (test code = 355) BLOOD UREA 17 mg/dL 7-21 NITROGEN (BEAKER) (test code = 354) CREATININE 0.84 mg/dL 0.57-1.25 (BEAKER) (test code = 358) GLUCOSE RANDOM 128 mg/dL 70-105 H (BEAKER) (test code = 652) CALCIUM (BEAKER) 9.1 mg/dL 8.4-10.2 (test code = 697) EGFR (BEAKER) 114 Interpretatio n of eGFR (test code = mL/min/1.73 values Stage De scription 1092) sq m Result G1 Becka l or high >=90 G2 Mildly decreased 60-89 G3a Mildl y to moderately 45-5 9 G3b Moderately to s everely 30-44 G4 Severl y decreased 15-29 G5 Kidney failure <15Reported eGF R is based on the CKD-EPI 2020 equation that d oes not use a race coefficientEsti mated GFR is not as accur ate as Creatinine [place] shreya in predicting glom erular filtration rate . Estimated GFR is not appl icable for dialysis patien ts Bar Machine Operator Multiple Spindle ID - PIAYA [id number] 01:38:31 Test Item Value Reference Range Interpretation Comments MAGNESIUM (BEAKER) (test code = 1.9 mg/dL 1.6-2.6 627) Bar Machine Operator Multiple Spindle ID - PIAYA LCBC W/PLT COUNT & AUTO [id number] 01:14:50 Test Item Value Reference Range Interpretation Comments WHITE BLOOD CELL COUNT (BEAKER) 12.3 K/ L 3.5-10.5 H (test code = 775) RED BLOOD CELL COUNT (BEAKER) 5.07 M/ L 4.63-6.08 (test code = 761) HEMOGLOBIN (BEAKER) (test code = 16.0 GM/DL 13.7-17.5 410) HEMATOCRIT (BEAKER) (test code = 46.0 % 40.1-51.0 411) MEAN CORPUSCULAR VOLUME (BEAKER) 90.7 fL 79.0-92.2 (test code = 753) MEAN CORPUSCULAR HEMOGLOBIN 31.6 pg 25.7-32.2 (BEAKER) (test code = 751) MEAN CORPUSCULAR HEMOGLOBIN CONC 34.8 GM/DL 32.3-36.5 (BEAKER) (test code = 752) RED CELL DISTRIBUTION WIDTH 12.4 % 11.6-14.4 (BEAKER) (test code = 412) PLATELET COUNT (BEAKER) (test 323 K/CU MM 150-450 code = 756) MEAN PLATELET VOLUME (BEAKER) 9.1 fL 9.4-12.4 L (test code = 754) NUCLEATED RED BLOOD CELLS 0 /100 WBC 0-0 (BEAKER) (test code = 413) NEUTROPHILS RELATIVE PERCENT 81 % (BEAKER) (test code = 429) LYMPHOCYTES RELATIVE PERCENT 8 % (BEAKER) (test code = 430) MONOCYTES RELATIVE PERCENT 11 % (BEAKER) (test code = 431) EOSINOPHILS RELATIVE PERCENT 0 % (BEAKER) (test code = 432) BASOPHILS RELATIVE PERCENT 0 % (BEAKER) (test code = 437) NEUTROPHILS ABSOLUTE COUNT 9.92 K/ L 1.78-5.38 H (BEAKER) (test code = 670) LYMPHOCYTES ABSOLUTE COUNT 0.96 K/ L 1.32-3.57 L (BEAKER) (test code = 414) MONOCYTES ABSOLUTE COUNT (BEAKER) 1.31 K/ L 0.30-0.82 H (test code = 415) EOSINOPHILS ABSOLUTE COUNT 0.01 K/ L 0.04-0.54 L (BEAKER) (test code = 416) BASOPHILS ABSOLUTE COUNT (BEAKER) 0.03 K/ L 0.01-0.08 (test code = 417) IMMATURE GRANULOCYTES-RELATIVE 0 % 0-1 PERCENT (BEAKER) (test code = 2801) RAD, CHEST, 1 VIEW, NON [id number] 15:07:00[facility] arrival to [facility] for exam:->s/p VATS wedge y2Ducoob this be performed at the bedside?->Yes [facility] : 1980 Sex: MFINAL REPORT Chest, one view. HISTORY: s/p VATS wedge x2 COMPARISON: Radiograph from yesterday IMPRESSION: Interval placement of an additional right chest tube. The right pneumothorax has resolved. The prominent interstitial opacities of the lungs are similar to the prior examination. No pleural effusion or pneumothorax. The cardiac silhouette is unchanged in size. No acute bone abnormality. Signed: Antoine Ross Verified Date/Time: 07/08/2022 15:07:44 Reading Location: [facility] B1 C013Y CT Body Reading Room [id number] 14:41:10 Test Item Value Reference Range Interpretation Comments PHOSPHORUS (BEAKER) 4.2 mg/dL 2.3-4.7 Specimen moderately (test code = 604) hemolyzed Bar Machine Operator Multiple Spindle ID - NAVI WCOMPREHENSIVE METABOLIC [id number] 14:41:10 Test Item Value Reference Range Interpretation Comments TOTAL PROTEIN 7.9 gm/dL 6.0-8.3 Specimen moder ately (BEAKER) (test hemolyzed code = 770) ALBUMIN (BEAKER) 4.1 g/dL 3.5-5.0 Specimen mo derately (test code = 1145) hemolyzed ALKALINE 67 U/L 40-150 PHOSPHATASE (BEAKER) (test code = 346) BILIRUBIN TOTAL 0.5 mg/dL 0.2-1.2 Specimen mod erately (BEAKER) (test hemolyzed code = 377) SODIUM (BEAKER) 137 meq/L 136-145 (test code = 381) POTASSIUM (BEAKER) 5.6 meq/L 3.5-5.1 H Specimen moderately (test code = 379) hemolyzed CHLORIDE (BEAKER) 105 meq/L 98-107 (test code = 382) CO2 (BEAKER) (test 25 meq/L 22-29 code = 355) BLOOD UREA 18 mg/dL 7-21 NITROGEN (BEAKER) (test code = 354) CREATININE 0.97 mg/dL 0.57-1.25 Specimen modera tely (BEAKER) (test hemolyzed code = 358) GLUCOSE RANDOM 114 mg/dL 70-105 H (BEAKER) (test code = 652) CALCIUM (BEAKER) 9.4 mg/dL 8.4-10.2 (test code = 697) AST (SGOT) 27 U/L 5-34 Specimen modera tely (BEAKER) (test hemolyzed code = 353) ALT (SGPT) 28 U/L 6-55 Specimen modera tely (BEAKER) (test hemolyzed code = 347) EGFR (BEAKER) 102 Interpretatio n of eGFR (test code = 1092) mL/min/1.[address] age Description sq m Result G1 Becka l or high >=90 G2 Mildly decreased 60-89 G3a Mildl y to moderately 45-5 9 G3b Moderately to s everely 30-44 G4 Severl y decreased 15-29 G5 Kidney failure <15Reported eGF R is based on the CKD-EPI 2020 equation that d oes not use a race coefficientEsti mated GFR is not as accur ate as Creatinine [place] shreya in predicting glom erular filtration rate . Estimated GFR is not appl icable for dialysis patien ts Bar Machine Operator Multiple Spindle ID - NAVI [id number] 14:41:09 Test Item Value Reference Range Interpretation Comments MAGNESIUM (BEAKER) 1.9 mg/dL 1.6-2.6 Specimen moderately (test code = 627) hemolyzed Bar Machine Operator Multiple Spindle ALON MCELROY WCBC W/PLT COUNT & AUTO [id number] 14:17:43 Test Item Value Reference Range Interpretation Comments WHITE BLOOD CELL COUNT (BEAKER) 14.0 K/ L 3.5-10.5 H (test code = 775) RED BLOOD CELL COUNT (BEAKER) 5.62 M/ L 4.63-6.08 (test code = 761) HEMOGLOBIN (BEAKER) (test code = 17.6 GM/DL 13.7-17.5 H 410) HEMATOCRIT (BEAKER) (test code = 50.7 % 40.1-51.0 411) MEAN CORPUSCULAR VOLUME (BEAKER) 90.2 fL 79.0-92.2 (test code = 753) MEAN CORPUSCULAR HEMOGLOBIN 31.3 pg 25.7-32.2 (BEAKER) (test code = 751) MEAN CORPUSCULAR HEMOGLOBIN CONC 34.7 GM/DL 32.3-36.5 (BEAKER) (test code = 752) RED CELL DISTRIBUTION WIDTH 12.5 % 11.6-14.4 (BEAKER) (test code = 412) PLATELET COUNT (BEAKER) (test 317 K/CU MM 150-450 code = 756) MEAN PLATELET VOLUME (BEAKER) 9.1 fL 9.4-12.4 L (test code = 754) NUCLEATED RED BLOOD CELLS 0 /100 WBC 0-0 (BEAKER) (test code = 413) NEUTROPHILS RELATIVE PERCENT 84 % (BEAKER) (test code = 429) LYMPHOCYTES RELATIVE PERCENT 9 % (BEAKER) (test code = 430) MONOCYTES RELATIVE PERCENT 4 % (BEAKER) (test code = 431) EOSINOPHILS RELATIVE PERCENT 2 % (BEAKER) (test code = 432) BASOPHILS RELATIVE PERCENT 1 % (BEAKER) (test code = 437) NEUTROPHILS ABSOLUTE COUNT 11.72 K/ L 1.78-5.38 H (BEAKER) (test code = 670) LYMPHOCYTES ABSOLUTE COUNT 1.28 K/ L 1.32-3.57 L (BEAKER) (test code = 414) MONOCYTES ABSOLUTE COUNT (BEAKER) 0.52 K/ L 0.30-0.82 (test code = 415) EOSINOPHILS ABSOLUTE COUNT 0.30 K/ L 0.04-0.54 (BEAKER) (test code = 416) BASOPHILS ABSOLUTE COUNT (BEAKER) 0.08 K/ L 0.01-0.08 (test code = 417) IMMATURE GRANULOCYTES-RELATIVE 1 % 0-1 PERCENT (BEAKER) (test code = 2801) POC-Glucose [id number] 14:11:50 Test Item Value Reference Range Interpretation Comments POC-Glucose Meter (test 120 mg/dL 70-110 H : TE STED AT [facility] code = 1538) [address] [facility], [address] 30: Bar Machine Operator Multiple Spindle/Techni rena ID = [id number] for LUIS (V), EUGENIE H Lab Interpretation (test Abnormal code = 25791-9) [facility] HospitalPO[facility]SE [id number] 14:11:50 Test Item Value Reference Range Interpretation Comments POC-GLUCOSE METER 120 mg/dL 70-110 H : TESTED A T [facility] [address] ([facility]) (test code = [facility], 1538) [address]: Bar Machine Operator Multiple Spindle/Techni rena ID = [id number] for JADIEL HEATH (V), FAHAD SARS-CoV2/RT-PCR (Asymptomatic ONLY)2022-07-08 06:21:08 Test Item Value Reference Interpretation Comments Range SARS-COV2/RT-PCR Negative Negative The SARS-Co V-2 (test code = target nucleic 60061-7) acids are not detected in thi s specimen. Negat maricruz results do not preclude SARS-C oV-2 infection and should not be u sed as the sole bas is for patient management decisions. Nega tive results must be combined with clinical observations, patient history , and epidemiolog ical information. A false negative result may occu r if a specimen is improperly collected, transported or handled. This S ARS CoV-2 test is a rapid, real-ceci e RT-PCR test intended for th e qualitative detection of nucleic acid fr om SARS-CoV-2 in a nasopharyngeal swab specimen collec sin from individual s suspected of COVID-19 by the ir healthcare provider. MARIO (test code = This test has been MARIO) authorized by FDA under an EUA for use by authorized laboratories. This test is only authorized for the duration of the declaration that circumstances exist justifying the authorization of emergency use of in vitro diagnostic tests for detection and/or diagnosis of COVID-19 under Section 564(b)(1) of the Federal Food, Drug and Cosmetic Act, 21 U.S.C. 360bbb-3(b)(1), unless the authorization is terminated or revoked sooner. Fact Sheet for Healthcare Providers: https://www.[employer]/Documents/Xp ert%20Xpress%20SAR S%20CoV-2/Fact%20S heets/302-3802%20S ARS-COV-2%20HEALTH CARE%20PROVIDERS%2 0FACT%20SHEET.pdf Fact Sheet for Healthcare Patients: https://www.[employer]/Documents/Xp ert%20Xpress%20SAR S%20CoV-2/Fact%20S heets/302-3801%20S ARS-COV-2%20PATIEN T%20FACT%20SHEET.p df Lab Interpretation Normal (test code = 38742-0) [facility]2022-07-08 06:21:08 Test Item Value Reference Range Interpretation Comments SARS-COV2/RT-PCR Negative Negative The SARS-Co V-2 target (test code = nucleic acids a re not 3679150) detected in thi s specimen. Negative result s do not preclude SARS-C oV-2 infection and s hould not be used as the leta e basis for patient managem ent decisions. Nega tive results must be combine d with clinical observ ations, patient history , and epidemiological information. A false negativ e result may occur if a spec imen is improperly nitin ected, transported or handled. This SARS CoV-2 test is a rapid, real-time RT-PC R test intended for th e qualitative detection of nu cleic acid from SARS-CoV-2 in a nasopharyngeal swab specimen collected from individuals suspected of CO VID-19 by their healthcar e provider. This test has been authorized by FDA under an EUA for use by authorized laboratories. This test is only authorized for the duration of the declaration that circumstances exist justifying the authorization of emergency use of in vitro diagnostic tests for detection and/or diagnosis of COVID-19 under Section 564(b)(1) of the Federal Food, Drug and Cosmetic Act, 21 U.S.C. 360bbb-3(b)(1), unless the authorization is terminated or revoked sooner. Fact Sheet for Healthcare Providers: https://www.[employer]/Documents/Xpert%20Xpress%20SARS%20CoV-2/Fact%20Sheets/302-3802%92QIKI-JYR-8%20 HEALTHCARE%20PROVIDERS%20FACT%20SHEET.pdf Fact Sheet for Healthcare Patients: https://www.[employer]/Documents/Xpert%20Xp ress%20SARS%20CoV-2/Fact%20Sheets/302-3801%29OQFL-GSB-2%20PATIENT%20FACT%20SHEET .pdfCBC W/PLT COUNT & AUTO [id number] 23:07:33 Test Item Value Reference Range Interpretation Comments WHITE BLOOD CELL COUNT (BEAKER) 9.0 K/ L 3.5-10.5 (test code = 775) RED BLOOD CELL COUNT (BEAKER) 5.34 M/ L 4.63-6.08 (test code = 761) HEMOGLOBIN (BEAKER) (test code = 16.5 GM/DL 13.7-17.5 410) HEMATOCRIT (BEAKER) (test code = 47.7 % 40.1-51.0 411) MEAN CORPUSCULAR VOLUME (BEAKER) 89.3 fL 79.0-92.2 (test code = 753) MEAN CORPUSCULAR HEMOGLOBIN 30.9 pg 25.7-32.2 (BEAKER) (test code = 751) MEAN CORPUSCULAR HEMOGLOBIN CONC 34.6 GM/DL 32.3-36.5 (BEAKER) (test code = 752) RED CELL DISTRIBUTION WIDTH 12.5 % 11.6-14.4 (BEAKER) (test code = 412) PLATELET COUNT (BEAKER) (test 347 K/CU MM 150-450 code = 756) MEAN PLATELET VOLUME (BEAKER) 9.1 fL 9.4-12.4 L (test code = 754) NUCLEATED RED BLOOD CELLS 0 /100 WBC 0-0 (BEAKER) (test code = 413) NEUTROPHILS RELATIVE PERCENT 59 % (BEAKER) (test code = 429) LYMPHOCYTES RELATIVE PERCENT 22 % (BEAKER) (test code = 430) MONOCYTES RELATIVE PERCENT 12 % (BEAKER) (test code = 431) EOSINOPHILS RELATIVE PERCENT 6 % (BEAKER) (test code = 432) BASOPHILS RELATIVE PERCENT 1 % (BEAKER) (test code = 437) NEUTROPHILS ABSOLUTE COUNT 5.33 K/ L 1.78-5.38 (BEAKER) (test code = 670) LYMPHOCYTES ABSOLUTE COUNT 2.01 K/ L 1.32-3.57 (BEAKER) (test code = 414) MONOCYTES ABSOLUTE COUNT (BEAKER) 1.08 K/ L 0.30-0.82 H (test code = 415) EOSINOPHILS ABSOLUTE COUNT 0.50 K/ L 0.04-0.54 (BEAKER) (test code = 416) BASOPHILS ABSOLUTE COUNT (BEAKER) 0.07 K/ L 0.01-0.08 (test code = 417) IMMATURE GRANULOCYTES-RELATIVE 0 % 0-1 PERCENT (BEAKER) (test code = 2801) [id number] 22:12:42 Test Item Value Reference Range Interpretation Comments MAGNESIUM (BEAKER) 2.0 mg/dL 1.6-2.6 Specimen moderately (test code = 627) hemolyzed Bar Machine Operator Multiple Spindle ID - JORGE LUIS [id number] 22:12:42 Test Item Value Reference Range Interpretation Comments PHOSPHORUS (BEAKER) 3.6 mg/dL 2.3-4.7 Specimen moderately (test code = 604) hemolyzed Bar Machine Operator Multiple Spindle ID - JORGE LUIS MCOMPREHENSIVE METABOLIC [id number] 22:12:42 Test Item Value Reference Range Interpretation Comments TOTAL PROTEIN 7.7 gm/dL 6.0-8.3 Specimen moder ately (BEAKER) (test hemolyzed code = 770) ALBUMIN (BEAKER) 4.1 g/dL 3.5-5.0 Specimen mo derately (test code = 1145) hemolyzed ALKALINE 64 U/L 40-150 PHOSPHATASE (BEAKER) (test code = 346) BILIRUBIN TOTAL 0.6 mg/dL 0.2-1.2 Specimen mod erately (BEAKER) (test hemolyzed code = 377) SODIUM (BEAKER) 137 meq/L 136-145 (test code = 381) POTASSIUM (BEAKER) 4.4 meq/L 3.5-5.1 Specimen moderately (test code = 379) hemolyzed CHLORIDE (BEAKER) 103 meq/L 98-107 (test code = 382) CO2 (BEAKER) (test 27 meq/L 22-29 code = 355) BLOOD UREA 16 mg/dL 7-21 NITROGEN (BEAKER) (test code = 354) CREATININE 0.92 mg/dL 0.57-1.25 Specimen modera tely (BEAKER) (test hemolyzed code = 358) GLUCOSE RANDOM 92 mg/dL 70-105 (BEAKER) (test code = 652) CALCIUM (BEAKER) 9.6 mg/dL 8.4-10.2 (test code = 697) AST (SGOT) 28 U/L 5-34 Specimen modera tely (BEAKER) (test hemolyzed code = 353) ALT (SGPT) 29 U/L 6-55 Specimen modera tely (BEAKER) (test hemolyzed code = 347) EGFR (BEAKER) 109 Interpretatio n of eGFR (test code = 1092) mL/min/1.[address] age Description sq m Result G1 Becka l or high >=90 G2 Mildly decreased 60-89 G3a Mildl y to moderately 45-5 9 G3b Moderately to s everely 30-44 G4 Severl y decreased 15-29 G5 Kidney failure <15Reported eGF R is based on the CKD-EPI 2021 equation that d oes not use a race coefficientEsti mated GFR is not as accur ate as Creatinine [place] shreya in predicting glom erular filtration rate . 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 The reference range was not used to interpret this result as normal/abnormal . PARTIAL THROMBOPLASTIN 35.2 seconds 22.5-36.0 TIME (BEAKER) (test code = 760) RECOMMENDED COUMADIN/WARFARIN INR THERAPY RANGESSTANDARD DOSE: 2.0 - 3.0 Includes: PROPHYLAXIS for venous thrombosis, systemic embolization; TREATMENT for venous thrombosis and/or pulmonary embolus.HIGH RISK: Target INR is 2.5-3.5 for patients with mechanical heart valves.RAD, CHEST, 1 VIEW, NON [id number] 19:56:00Reason for exam:->enlarging pneumothoraxShould this be performed at the bedside?->Yes [facility] : 1980 Sex: MFINAL REPORT EXAM/TECHNIQUE: Single view frontal radiograph of the chest. INDICATION: Enlarging pneumothorax. COMPARISON: None. FINDINGS: Devices/Objects: Right chest tube is present. Lungs: Moderate right apical pneumothorax. Right basilar atelectasis. Heart/Mediastinum: No cardiomegaly.No interstitial thickening. Osseous: No acute osseous process. No suspicious osseous lesion. Upper abdomen: Unremarkable. Impression: Moderate right apical pneumothorax with right-sided chest tube. Signed: Avel Parker Verified Date/Time: 07/07/2022 19:56:59
--- NOTE | 2023-04-09 22:35 | RAD REPORT ---
EXAM DESCRIPTION: RAD - Chest Single View - 04/09/2023 10:31 pm CLINICAL HISTORY: CHEST PAIN Chest pain. COMPARISON: Chest Single View dated 07/07/2022; Chest Single View dated 07/07/2022; Chest Single View da sin 07/07/2022; Chest Single View dated 07/07/2022 FINDINGS: Portable technique limits examination quality. The lungs are mildly underinflated but grossly clear. The heart is normal in size. No displaced fract ures. IMPRESSION: No acute intrathoracic process suspected.
[2023-04-09] MEDS ORDERED: LORazepam 2 MG/ML VIAL ONE (23:14)
[2023-04-09] MEDS ORDERED: MORPHINE 4 MG/ML SYR ONE (23:15)
[2023-04-09] MEDS ORDERED: NA CHLORIDE 0.9% 1,000 ML ONE (23:16)
[2023-04-09] MEDS ORDERED: ONDANSETRON 4 MG/2 ML VIAL ONE (23:16)
[2023-04-09 23:41] LABS: Absolute Lymphocytes (CBC) 2.1 K/uL (0.7-4.9); Hematocrit 44.9 % (39.6-49.0); MCV 91.4 fL (80-100); MPV 8.1 fL (7.6-11.3); RBC Red Blood Cell Count 4.91 M/uL (4.33-5.43)
[2023-04-09 23:43] LABS: Barbiturates NEGATIVE (NEGATIVE); Benzodiazepines NEGATIVE (NEGATIVE); Cocaine POSITIVE (NEGATIVE); METHAMPHETAM NEGATIVE (NEGATIVE); Methadone NEGATIVE (NEGATIVE); Opiates NEGATIVE (NEGATIVE); Phencyclidine NEGATIVE (NEGATIVE); THC Cannibis NEGATIVE (NEGATIVE)
[2023-04-09 23:54] LABS: ALT/SGPT 32 U/L (16-61); AST/SGOT 19 U/L (15-37); Albumin 3.5 g/dL (3.4-5.0); Alkaline Phosphatase 100 U/L (45-117); BUN Blood Urea Nitrogen 19 mg/dL (7-18); Bicarbonate 26 mEq/L (21-32); Bilirubin Direct < 0.1 mg/dL (0-0.2); Bilirubin Indirect, Calculated ND mg/dL (0.2-0.8); Bilirubin Total 0.2 mg/dL (0.2-1.0); Glomerular Filtration Rate 110 ml/min (=/>90); Glucose Level 115 mg/dL (74-106); NT PRO-BNP < 5 pg/mL (<125); Potassium 3.5 mEq/L (3.5-5.1); Protein, Total 7.1 g/dL (6.4-8.2); Sodium Level 140 mEq/L (136-145); Troponin High Sensitivity 43.1 pg/mL (<58.9)
[2023-04-10 00:08] LABS: Protime INR 0.86
--- NOTE | 2023-04-10 00:52 | ER ---
Nurse's Notes [facility] Name: Adrian Huffman Age: 43 yrs Sex: Male : 1980 Arrival Date: 04/09/2023 Time: 21:25 Bed 5 Private MD: Diagnosis: Cocaine abuse with cocaine-induced anxiety disorder;Chest pain, unspecified;Acute anxiety attack secondary to cocaine use. Presentation: 04/09 21:31 Chief complaint: Patient states: sob difficulty breathing since last pm reports history nj1 of spontaneous pneumo with chest tube placement. Coronavirus screen: Vaccine status: Patient reports being unvaccinated. Ebola Screen: Patient negative for fever greater than or equal to 101.5 degrees Fahrenheit, and additional compatible Ebola Virus Disease symptoms. Initial Sepsis Screen: Does the patient meet any 2 criteria? No. Patient's initial sepsis screen is negative. Does the patient have a suspected source of infection? No. Patient's initial sepsis screen is negative. Risk Assessment: Do you want to hurt yourself or someone else? Patient reports no desire to harm self or others. Onset of symptoms was April 08, 2023. 21:31 Method Of Arrival: Wheelchair nj1 21:31 Acuity: KELLY 3 nj1 Triage Assessment: 21:34 General: Appears distressed, uncomfortable, Behavior is anxious. Pain: Complains of nj1 pain in chest and posterior chest Pain currently is 9 out of 10 on a pain scale. Aggravated by seep breathing. Historical: - Allergies: 21:33 NKA; sp4 21:33 NKA; nj1 - PMHx: 21:33 Ulcers; sp4 21:33 Ulcers; Pneumothorax; nj1 - PSHx: 21:33 chest tube; nj1 - Immunization history:: Adult Immunizations not immunized. - Social history:: Patient/guardian denies using alcohol, street drugs, IV drugs, caffeine, over the counter diet medications, tobacco products, Smoking status: Patient denies any tobacco usage or history of. - Family history:: not pertinent. Screenin/07 01:12 [facility] ED Fall Risk Assessment (Adult) History of falling in the last 3 months, lg3 including since admission No falls in past 3 months (0 pts). Abuse screen: Denies threats or abuse. Denies injuries from another. Nutritional screening: No deficits noted. Tuberculosis screening: No symptoms or risk factors identified. Assessment: 04/09 22:45 General: Appears in no apparent distress. uncomfortable, Behavior is calm, cooperative, jb4 appropriate for age. Pain: Complains of pain in chest Pain radiates to back Pain currently is 8 out of 10 on a pain scale. Neuro: Level of Consciousness is awake, alert, obeys commands, Oriented to person, place, time, situation. Cardiovascular: Patient's skin is warm and dry. Respiratory: Airway is patent Respiratory effort is even, unlabored, Respiratory pattern is regular, symmetrical. GI: No signs and/or symptoms were reported involving the gastrointestinal system. : No signs and/or symptoms were reported regarding the genitourinary system. EENT: No signs and/or symptoms were reported regarding the EENT system. Derm: Skin is intact, Skin is pink, warm \T\ dry. Musculoskeletal: Circulation, motion, and sensation intact. Range of motion: intact in all extremities. 23:49 Reassessment: Patient appears in no apparent distress at this time. Patient and/or jb4 family updated on plan of care and expected duration. Pain level reassessed. Patient is alert, oriented x 3, equal unlabored respirations, skin warm/dry/pink. Patient states feeling better. 04/10 01:12 Reassessment: Patient appears in no apparent distress at this time. No changes from lg3 previously documented assessment. Patient and/or family updated on plan of care and expected duration. Pain level reassessed. Patient is alert, oriented x 3, equal unlabored respirations, skin warm/dry/pink. Patient states feeling better. Patient states symptoms have improved. Vital Signs: 04/09 21:31 BP 147 / 97; Pulse 86; Resp 20; Temp 98.2; Pulse Ox 100% on R/A; Weight 85.73 kg (R); nj1 Height 5 ft. 6 in. ; Pain 9/10; 23:49 BP 134 / 99; Pulse 79; Resp 16; Pulse Ox 95% ; jb4 04/10 01:12 BP 131 / 84; Pulse 77; Resp 17 S; Pulse Ox 96% on R/A; lg3 04/09 21:31 Body Mass Index 30.51 (85.73 kg, 167.64 cm) [facility] 04/09 21:31 Pain Scale: Adult [facility] ED Course: 04/09 21:28 Patient arrived in ED. jj6 21:31 Sheldon Rivero MD is Attending Physician. sp4 21:33 Triage completed. nj1 22:33 XRAY Chest (1 view) In Process Unspecified. EDMS 22:42 Basic Metabolic Panel Sent. bc6 22:42 CBC with Diff Sent. bc6 22:42 D-Dimer Sent. bc6 22:42 LFT's Sent. bc6 22:42 NT PRO-BNP Sent. bc6 22:42 PT-INR Sent. bc6 22:42 Troponin HS Sent. bc6 22:42 Inserted saline lock: 20 gauge in right antecubital area, using aseptic technique. bc6 23:03 Dayron Gonzalez, RN is Primary Nurse. jb4 04/10 00:50 Steven Ballard MD is Referral Physician. sp4 01:12 No provider procedures requiring assistance completed. IV discontinued, intact, lg3 bleeding controlled, No redness/swelling at site. Pressure dressing applied. Patient maintains SpO2 saturation greater than 95% on room air. 01:12 Patient has correct armband on for positive identification. Placed in gown. Bed in low lg3 position. Call light in reach. Side rails up X 1. Client placed on continuous cardiac and pulse oximetry monitoring. NIBP monitoring applied. court recording monitor on. Administered Medications: 04/09 23:17 Drug: Ativan IVP 2 mg Route: IVP; Site: right antecubital; jb4 23:17 Drug: morphine IVP or IV 4 mg Route: IVP; Infused Over: 4 mins; Site: right antecubital;4 23:17 Drug: Ondansetron IVP 4 mg Route: IVP; Site: right antecubital; jb4 23:17 Drug: NS 0.9% IV 1000 ml Route: IV; Rate: 1 bolus; Site: right antecubital; jb4 04/10 01:02 Drug: Aspirin PO Chewable Tablet 324 mg Route: PO; lg3 Medication: 01:13 VIS not applicable for this client. lg3 Outcome: 00:51 Discharge ordered by . sp4 01:12 Discharged to home ambulatory. lg3 01:12 Condition: stable 01:12 Discharge instructions given to patient, Instructed on discharge instructions, follow up and referral plans. Demonstrated understanding of instructions, follow-up care. 01:13 Patient left the ED. lg3 Signatures: Dispatcher [employer] EDDayron Baxter RN RN jb4 Risa Dixon RN RN lg3 Suyapa Alcazar6 Cherri Newsome6 Sheldon Rivero MD MD sp4 Becka Dowling RN RN nj1
--- NOTE | 2023-04-10 00:52 | EDPHYS ---
Physician Documentation [facility] Name: Adrian Huffman Age: 43 yrs Sex: Male : 1980 Arrival Date: 04/09/2023 Time: 21:25 Bed 5 Private MD: ED Physician Sheldon Rivero HPI: 04/09 21:31 This 43 yrs old Male presents to ER via Unassigned with complaints of Chest sp4 Pain, Chest Tightness. 21:33 43-year-old male with history of prior right-sided spontaneous pneumothorax presents sp4 with acute onset of midsternal chest pain starting last night worsening over the course of the day. Patient presents with acute discomfort and anxiety associated with so describes moderate midsternal pain. Reported shortness of breath as well associated with pain. . Historical: - Allergies: 21:33 NKA; sp4 21:33 NKA; nj1 - PMHx: 21:33 Ulcers; sp4 21:33 Ulcers; Pneumothorax; nj1 - PSHx: 21:33 chest tube; nj1 - Immunization history:: Adult Immunizations not immunized. - Social history:: Patient/guardian denies using alcohol, street drugs, IV drugs, caffeine, over the counter diet medications, tobacco products, Smoking status: Patient denies any tobacco usage or history of. - Family history:: not pertinent. ROS: 21:35 Constitutional: Negative for fever, chills, and weight loss, Eyes: Negative for injury, sp4 pain, redness, and discharge, ENT: Negative for injury, pain, and discharge, Neck: Negative for injury, pain, and swelling, Cardiovascular: Negative for palpitations, and edema, positive midsternal chest pain positive shortness of breath Respiratory: Negative for cough, wheezing, positive for shortness of breath, positive pleuritic chest pain Abdomen/GI: Negative for abdominal pain, nausea, vomiting, diarrhea, and constipation, Back: Negative for injury and pain, : Negative for injury, bleeding, discharge, and swelling, MS/Extremity: Negative for injury and deformity, Skin: Negative for injury, rash, and discoloration, Neuro: Negative for headache, weakness, numbness, tingling, and seizure, Psych: Negative for depression, anxiety, Allergy/Immunology: Negative for hives, rash, and allergies Endocrine: Negative for neck swelling, polydipsia, polyuria, polyphagia, and weight changes Hematologic/Lymphatic: Negative for swollen nodes, abnormal bleeding, and unusual bruising Exam: 21:35 Constitutional: This is a well developed, well nourished patient who is awake, alert, sp4 moderate anxiety on exam. Acutely uncomfortable appearing male. Head/Face: Normocephalic, atraumatic. Eyes: Pupils equal round and reactive to light, extra-ocular motions intact. Lids and lashes normal. Conjunctiva and sclera are not injected. Cornea within normal limits. Periorbital areas with no swelling, redness, or edema. ENT: Nares patent. No nasal discharge, no septal abnormalities noted. Tympanic membranes are normal and external auditory canals are clear. Oropharynx with no redness, swelling, or masses, exudates, or evidence of obstruction, uvula midline. Mucous membranes moist. Neck: Trachea midline, no thyromegaly or masses palpated, and no cervical lymphadenopathy. Supple, full range of motion without nuchal rigidity, or vertebral point tenderness. No Meningismus. Chest/axilla: Normal chest wall appearance and motion. Nontender with no deformity. No lesions are appreciated. Cardiovascular: Regular rate and rhythm with a normal S1 and S2. No gallops, murmurs, or rubs. Normal PMI, no JVD. No pulse deficits. Respiratory: Lungs have equal breath sounds bilaterally, clear to auscultation and percussion. No rales, rhonchi or wheezes noted. No increased work of breathing, no retractions or nasal flaring. Abdomen/GI: Soft, non-tender, with normal bowel sounds. No distension or tympany. No guarding or rebound. No evidence of tenderness throughout. Back: No spinal tenderness. No costovertebral tenderness. Male : Normal genitalia with no discharge or lesions. Skin: Warm, dry with normal turgor. Normal color with no rashes, no lesions, and no evidence of cellulitis. MS/ Extremity: Pulses equal, no cyanosis. Neurovascular intact. Full, normal range of motion. Neuro: Awake and alert, GCS 15, oriented to person, place, time, and situation. Cranial nerves II-XII grossly intact. Motor strength 5/5 in all extremities. Sensory grossly intact. Psych: Awake, alert, with orientation to person, place and time. Behavior, mood, and affect are within normal limits 04/10 00:46 ECG was reviewed by the Attending Physician. EKG time 2248, EKG reveals normal sinus sp4 rhythm at the rate of 86, no ectopy, no ST elevation or depression, overall normal EKG Vital Signs: 04/09 21:31 BP 147 / 97; Pulse 86; Resp 20; Temp 98.2; Pulse Ox 100% on R/A; Weight 85.73 kg (R); nj1 Height 5 ft. 6 in. ; Pain 9/10; 23:49 BP 134 / 99; Pulse 79; Resp 16; Pulse Ox 95% ; jb4 04/10 01:12 BP 131 / 84; Pulse 77; Resp 17 S; Pulse Ox 96% on R/A; lg3 04/09 21:31 Body Mass Index 30.51 (85.73 kg, 167.64 cm) nj1 04/09 21:31 Pain Scale: Adult nj MDM: 04/09 21:32 Patient medically screened. sp4 21:35 Differential diagnosis: abnormal EKG, acute myocardial infarction, acute pericarditis, sp4 anxiety, coronary artery disease chest wall pain, pneumothorax. Data reviewed: vital signs, nurses notes, old medical records, lab test result(s), EKG, radiologic studies, plain films. 04/10 00:46 HEART Score: History: Moderately Suspicious (1), ECG: Normal (0), Age: < or = 45 years sp4 (0), Risk Factors: No Risk Factors Known (0), Troponin: < or = 1 x Normal Limit (0), Total Score = 1. The patient was given aspirin in the Emergency Department. 00:48 ED course: Patient tested positive for cocaine, pain, anxiety, consistent with acute sp4 cocaine abuse. Cardiac work-up negative at this time. Patient advised not to use cocaine in the future overall we will administer aspirin before departure. Patient will be advised to go home practice bedrest for the next 12 hours.. . 04/09 21:32 Order name: Basic Metabolic Panel; Complete Time: 00:39 sp4 04/09 21:32 Order name: CBC with Diff; Complete Time: 00:39 sp4 04/09 21:32 Order name: D-Dimer; Complete Time: 00:39 sp4 04/09 21:32 Order name: LFT's; Complete Time: 00:39 sp4 04/09 21:32 Order name: NT PRO-BNP; Complete Time: 00:39 sp4 04/09 21:32 Order name: PT-INR; Complete Time: 00:39 sp4 04/09 21:32 Order name: Troponin HS; Complete Time: 00:39 sp4 04/09 21:34 Order name: Urine Drug Screen; Complete Time: 00:39 sp4 04/09 21:32 Order name: XRAY Chest (1 view); Complete Time: 00:39 sp4 04/09 21:32 Order name: EKG; Complete Time: 21:33 sp4 04/09 21:32 Order name: Cardiac monitoring; Complete Time: 23:17 sp4 04/09 21:32 Order name: EKG - Nurse/Tech; Complete Time: 22:42 sp4 04/09 21:32 Order name: IV Saline Lock; Complete Time: 22:42 sp4 04/09 21:32 Order name: Labs collected and sent; Complete Time: 22:42 sp4 04/09 21:32 Order name: O2 Per Protocol; Complete Time: 23:17 sp4 04/09 21:32 Order name: O2 Sat Monitoring; Complete Time: 23:17 sp4 EC:46 Rate is 86 beats/min. Rhythm is regular, Normal Sinus Rhythm. QRS [place] is Normal. [place] sp4 interval is normal. QRS interval is normal. QT interval is normal. T waves are Normal. No ST changes noted. Clinical impression: Normal ECG. Interpreted by me. Administered Medications: 04/09 23:17 Drug: Ativan IVP 2 mg Route: IVP; Site: right antecubital; 23:17 Drug: morphine IVP or IV 4 mg Route: IVP; Infused Over: 4 mins; Site: right antecubital; 23:17 Drug: Ondansetron IVP 4 mg Route: IVP; Site: right antecubital; 23:17 Drug: NS 0.9% IV 1000 ml Route: IV; Rate: 1 bolus; Site: right antecubital; jb4 04/10 01:02 Drug: Aspirin PO Chewable Tablet 324 mg Route: PO; lg3 Disposition Summary: 04/10/23 00:51 Discharge Ordered Location: Home sp4 Problem: new sp4 Symptoms: have improved sp4 Condition: Stable sp4 Diagnosis - Cocaine abuse with cocaine-induced anxiety disorder sp4 - Chest pain, unspecified sp4 - Acute anxiety attack secondary to cocaine use. sp4 Followup: sp4 - With: Steven Ballard MD - When: - Reason: Recheck today's complaints Discharge Instructions: - Discharge Summary Sheet sp4 - Nonspecific Chest Pain, Adult sp4 Signatures: Dispatcher [employer] EDDayron Baxter RN RN jb4 Risa Dixon RN RN lg3 Sheldon Rivero MD MD sp4 Becka Dowling RN RN nj1
[2023-04-10] MEDS ORDERED: ASPIRIN 81 MG CHEWABLE TABLET ONE (01:09)
[2023-04-10 02:57] VITALS: TEMP 98.2
[2023-04-10 03:04] VITALS: BP 131/84; O2SAT 96
--- NOTE | 2023-04-10 07:15 | EKG ---
Test Date: 2023-04-09 Test Time: 22:38:24 Lipstick Molder: SELVIN MEASUREMENT RESULTS: Intervals: Rate: 86 MD: 134 QRSD: 98 QT: 346 QTc: 414 Milmay: P: 13 MD: 134 QRS: 56 T: 5 INTERPRETIVE STATEMENTS: Normal sinus rhythm Normal ECG Compared to ECG 06/30/2022 13:33:13 Sinus tachycardia no longer present Right-axis deviation no longer present Electronically Signed On 04-10-23 07:13:53 CDT by Nam Nicole
== END 2023-04-10 01:13 | disposition home or self-care (01) ==
LOC: ER 21:25
DX: F14.280 Cocaine dependence with cocaine-induced anxiety disorder (principal); R07.9 Chest pain, unspecified; R06.02 Shortness of breath; J93.9 Pneumothorax, unspecified
CPT/HCPCS: 36415; 71045; 80048; 80076; 80307; 83880; 84484; 85025; 85379; 85610; 93005; 96374; 96375; 99285; J2405; J7030

== ENCOUNTER 2025-01-23 10:08 | Emergency (ER) | payer SELFPAY ==
[2025-01-23] MEDS ORDERED: KETOROLAC 30 MG/ML INJ ONE (10:38)
[2025-01-23] MEDS ORDERED: HYDROCODONE/APAP 5/325 MG TAB ONE (10:39)
--- NOTE | 2025-01-23 11:32 | RAD REPORT ---
Exam:Shoulder Left 2+ Views HISTORY: Left shoulder pain FINDINGS: No fracture or dislocation seen
--- NOTE | 2025-01-23 11:38 | RAD REPORT ---
EXAMINATION: CT HEAD WITHOUT CONTRAST CT CERVICAL SPINE WITHOUT CONTRAST CLINICAL INDICATION: Head and neck injury status post trauma.. Head and neck pain TECHNIQUE: Axial CT images from the skull base to the vertex without intravenous contrast. Axial CT i mages through the cervical spine were obtained without intravenous contrast. Sagittal and coronal reformatted images were created from the data set. Coronal and sagittal reformatted images were creat ed from the data set. One or more of the following dose reduction techniques were used: Automated exposure control, adjustment of the mA and/or kV according to patient size, and/or iterative reconstr uction. Unless otherwise specified, incidental findings do not require dedicated imaging follow-up. [id number]. Comparison: none FINDINGS: An intracranial bleed is not seen. Cerebellar tonsillar ectopia is present. Ventricles are normal in caliber. No significant hypodensity within the brain No extra-axial fluid collection. No fluid within the sinuses/mastoids Several small bony densities lie adjacent to the inferior vertebral endplate of C5. Otherwise, no fracture or dislocation seen. IMPRESSION: No acute intracranial abnormality noted Several small bony densities adjacent to the inferior vertebral endplate of C5.. I suspect all of the se are chronic. If the patient continues to have symptoms to suggest acute TUBE MAKER/spinal pathology then MRI would be rec ommended
--- NOTE | 2025-01-23 11:53 | ER ---
Nurse's Notes [facility] Name: Adrian Huffman Age: 44 yrs Sex: Male : 1980 Arrival Date: 01/23/2025 Time: 10:08 Bed 19 Private MD: Diagnosis: Left shoulder contusion, left trapezius strain, closed head injury, scalp contusion, scalp abrasion Presentation: 01/23 10:18 Chief complaint: Patient states: Heavy boards fell off trailer and hit him in the head ll1 and L shoulder yesterday. No LOC. Abrasion noted to scalp area. Coronavirus screen: Client denies travel out of the [place] in the last 14 days. At this time, the client does not indicate any symptoms associated with coronavirus-19. Ebola Screen: Patient denies travel to an Ebola-affected area in the 21 days before illness onset. Acute neurological deficit: none identified. Initial Sepsis Screen: Does the patient meet any 2 criteria? No. Patient's initial sepsis screen is negative. Does the patient have a suspected source of infection? No. Patient's initial sepsis screen is negative. Risk Assessment: Do you want to hurt yourself or someone else? Patient reports no desire to harm self or others. Onset of symptoms was January 22, 2025. 10:18 Method Of Arrival: Ambulatory ll1 10:18 Acuity: KELLY 3 ll1 Triage Assessment: 10:19 General: Appears uncomfortable, Behavior is calm, cooperative, appropriate for age. ll1 Pain: Complains of pain in L shoulder Quality of pain is described as aching. Neuro: Reports headache. Derm: Reports abrasion scalp. Musculoskeletal: Reports pain in L shoulder. Historical: - Allergies: 10:19 NKA; ll1 - PMHx: 10:19 Pneumothorax; Ulcers; ll1 - PSHx: 10:19 chest tube; Appendectomy; ll1 - Immunization history:: Adult Immunizations up to date. - Infectious Disease History:: Denies. - Social history:: Smoking status: Patient reports the use of cigarette tobacco products, denies chronic smoking, but will smoke occasionally. Screenin:34 [facility] ED Fall Risk Assessment (Adult) History of falling in the last 3 months, kj2 including since admission Yes- single mechanical fall (1 pt) Confusion or Disorientation No (0 pts) Intoxicated or Sedated No (0 pts) Impaired Gait No (0 pts) Mobility Assist Device Used No (0 pt) Altered Elimination No (0 pt) Score/Fall Risk Level 0 - 2 = Low Risk Maintained a safe environment, Hourly rounding (assess needs \T\ fall precautionary measures) done. Abuse screen: Denies threats or abuse. Denies injuries from another. Nutritional screening: No deficits noted. Tuberculosis screening: No symptoms or risk factors identified. Assessment: 10:30 General: Appears in no apparent distress. uncomfortable, Behavior is calm, cooperative. kj2 Pain: Complains of pain in left shoulder Pain currently is 9 out of 10 on a pain scale. Neuro: Level of Consciousness is awake, alert, obeys commands, Oriented to person, place, time, situation. Cardiovascular: Patient's skin is warm and dry. Respiratory: Airway is patent Respiratory effort is unlabored. GI: No signs and/or symptoms were reported involving the gastrointestinal system. : No signs and/or symptoms were reported regarding the genitourinary system. 11:17 Reassessment: Patient appears in no apparent distress at this time. Patient and/or kj2 family updated on plan of care and expected duration. Pain level reassessed. Patient is alert, oriented x 3, equal unlabored respirations, skin warm/dry/pink. 11:55 Reassessment: Patient appears in no apparent distress at this time. Patient and/or kj2 family updated on plan of care and expected duration. Pain level reassessed. Patient is alert, oriented x 3, equal unlabored respirations, skin warm/dry/pink. Vital Signs: 10:18 BP 162 / 97; Pulse 90; Resp 18; Temp 98; Pulse Ox 100% ; Weight 77.11 kg; Height 5 ft. ll1 6 in. ; Pain 9/10; 11:16 BP 148 / 90; Pulse 90; Resp 18; Pulse Ox 100% on R/A; kj2 11:56 BP 130 / 82; Pulse 82; Resp 20; Temp 98; Pulse Ox 100% on R/A; kj2 10:18 Body Mass Index 27.44 (77.11 kg, 167.64 cm) ll1 10:18 Pain Scale: Adult ll1 ED Course: 10:12 Patient arrived in ED. sj2 10:14 Riki Samayoa MD is Attending Physician. sp3 10:19 Triage completed. ll1 10:20 Arm band placed on Patient placed in an exam room, on a stretcher. ll1 10:29 Elizabeth Stovall, RN is Primary Nurse. kj2 10:35 Patient has correct armband on for positive identification. Bed in low position. Call kj2 light in reach. Side rails up X 1. Provided Education on: call light. 11:20 CT Head C Spine In Process Unspecified. EDMS 11:22 Shoulder Left (2 View) XRAY In Process Unspecified. EDMS 11:57 No provider procedures requiring assistance completed. Patient did not have IV access kj2 during this emergency room visit. Administered Medications: 10:43 Drug: Ketorolac IM 30 mg IM once Route: IM; Site: left deltoid; kj2 12:06 Follow up: Response: No adverse reaction kj2 10:43 Drug: HYDROcodone-acetaminophen PO 5 mg-325 mg 2 tabs PO once Route: PO; kj2 12:06 Follow up: Response: No adverse reaction kj2 Medication: 10:36 VIS not applicable for this client. kj2 Outcome: 11:52 Discharge ordered by . sp3 11:58 Discharged to home ambulatory, kj2 11:58 Condition: stable 11:58 Discharge instructions given to patient, Instructed on discharge instructions, follow up and referral plans. Demonstrated understanding of instructions, follow-up care, medications, Prescriptions given X 2, 12:07 Patient left the ED. kj2 Signatures: Dispatcher [employer] EDMS Melina Isidro RN RN ll1 Riki Samayoa MD MD sp3 Elizabeth Stovall, KEYANA RN kj2 Mitchel Tierney [facility]
--- NOTE | 2025-01-23 11:53 | EDPHYS ---
Physician Documentation [facility] Name: Adrian Huffman Age: 44 yrs Sex: Male : 1980 Arrival Date: 01/23/2025 Time: 10:08 Bed 19 Private MD: ED Physician Riki Samayoa HPI: 01/23 10:58 This 44 yrs old Male presents to ER via Ambulatory with complaints of Neck and sp3 Upper Back Pain - FENCE FELL ON HIM. 10:58 44-year-old male with no significant past medical history presents with left shoulder sp3 pain, head injury and neck pain after a construction accident where a demolition was occurring where a wall came down and hit patient's shoulder and head pushing him into the ground. There is video of the incident which I reviewed. No loss of consciousness reported. No other injuries except left shoulder neck and head. ROS otherwise negative.. Historical: - Allergies: 10:19 NKA; ll1 - PMHx: 10:19 Pneumothorax; Ulcers; ll1 - PSHx: 10:19 chest tube; Appendectomy; ll1 - Immunization history:: Adult Immunizations up to date. - Infectious Disease History:: Denies. - Social history:: Smoking status: Patient reports the use of cigarette tobacco products, denies chronic smoking, but will smoke occasionally. ROS: 10:59 Constitutional: Negative for fever, chills, and weight loss, Eyes: Negative for injury, sp3 pain, redness, and discharge, Cardiovascular: Negative for chest pain, palpitations, and edema, Respiratory: Negative for shortness of breath, cough, wheezing, and pleuritic chest pain, Abdomen/GI: Negative for abdominal pain, nausea, vomiting, diarrhea, and constipation, Back: Negative for injury and pain, Skin: Negative for injury, rash, and discoloration, Psych: Negative for depression, anxiety, suicide ideation, homicidal ideation, and hallucinations, Allergy/Immunology: Negative for hives, rash, and allergies, Endocrine: Negative for neck swelling, polydipsia, polyuria, polyphagia, and marked weight changes, Hematologic/Lymphatic: Negative for swollen nodes, abnormal bleeding, and unusual bruising, 10:59 All other systems are negative, Exam: 10:59 Constitutional: This is a well developed, well nourished patient who is awake, alert, sp3 and in no acute distress. Eyes: Pupils equal round and reactive to light, extra-ocular motions intact. Lids and lashes normal. Conjunctiva and sclera are non-icteric and not injected. Cornea within normal limits. Periorbital areas with no swelling, redness, or edema. ENT: Nares patent. No nasal discharge, no septal abnormalities noted. External auditory canals are clear. Oropharynx with no redness, swelling, or masses, exudates, or evidence of obstruction, uvula midline. Mucous membranes moist. Chest/axilla: Normal chest wall appearance and motion. Nontender with no deformity. No lesions are appreciated. Cardiovascular: Regular rate and rhythm with a normal S1 and S2. No gallops, murmurs, or rubs. Normal PMI, no JVD. No pulse deficits. Respiratory: Lungs have equal breath sounds bilaterally, clear to auscultation and percussion. No rales, rhonchi or wheezes noted. No increased work of breathing, no retractions or nasal flaring. Abdomen/GI: Soft, non-tender, with normal bowel sounds. No distension or tympany. No guarding or rebound. No evidence of tenderness throughout. Back: No spinal tenderness. No costovertebral tenderness. Full range of motion. Skin: Warm, dry with normal turgor. Normal color with no rashes, no lesions, and no evidence of cellulitis. Neuro: Awake and alert, GCS 15, oriented to person, place, time, and situation. Cranial nerves II-XII grossly intact. Motor strength 5/5 in all extremities. Sensory grossly intact. Cerebellar exam normal. Normal gait. Psych: Awake, alert, with orientation to person, place and time. Behavior, mood, and affect are within normal limits. 10:59 Neck: Pain to palpation of the trapezius muscle on the left side of the neck along with general pain to palpation of the left shoulder. No midline tenderness of the neck. Patient has abrasion and mild hematoma to the posterior occiput. Vital signs normal., Vital Signs: 10:18 BP 162 / 97; Pulse 90; Resp 18; Temp 98; Pulse Ox 100% ; Weight 77.11 kg; Height 5 ft. ll1 6 in. ; Pain 9/10; 11:16 BP 148 / 90; Pulse 90; Resp 18; Pulse Ox 100% on R/A; kj2 11:56 BP 130 / 82; Pulse 82; Resp 20; Temp 98; Pulse Ox 100% on R/A; kj2 10:18 Body Mass Index 27.44 (77.11 kg, 167.64 cm) ll1 10:18 Pain Scale: Adult ll1 MDM: 10:14 Medical Screening Exam initiated sp3 11:00 Data reviewed: vital signs, nurses notes, radiologic studies. ED course: 44-year-old sp3 male with trauma injury. Will obtain x-ray of the left shoulder, CT scan of the head and C-spine. IM ketorolac and p.o. [place] for pain control. If workup negative we will safely discharge patient home.. 11:40 ED course: All imaging negative. Will discharge patient home on diclofenac and sp3 tramadol.. 01/23 10:23 Order name: Shoulder Left (2 View) XRAY; Complete Time: 11:40 sp3 01/23 10:23 Order name: CT Head C Spine; Complete Time: 11:40 sp3 Administered Medications: 10:43 Drug: Ketorolac IM 30 mg IM once Route: IM; Site: left deltoid; kj2 12:06 Follow up: Response: No adverse reaction kj2 10:43 Drug: HYDROcodone-acetaminophen PO 5 mg-325 mg 2 tabs PO once Route: PO; kj2 12:06 Follow up: Response: No adverse reaction kj2 Disposition Summary: 01/23/25 11:52 Discharge Ordered Notes: Location: Home sp3 Condition: Stable sp3 Diagnosis - Left shoulder contusion, left trapezius strain, closed head injury, scalp sp3 contusion, scalp abrasion Followup: sp3 - With: Private Physician - When: Upon discharge from the Emergency Department - Reason: Continuance of care Discharge Instructions: - Discharge Summary Sheet sp3 - Head Injury, Adult sp3 Forms: - Medication Reconciliation Form sp3 - Antibiotic Education sp3 - Prescription Opioid Use sp3 - Patient Portal Instructions sp3 - Leadership Thank You Letter sp3 Prescriptions: - Diclofenac Sodium 75 mg Oral Tablet Sustained Release - take 1 tablet ORAL route 2 times per day; 30 tablet; Refills: 0, Product sp3 Selection Permitted - Tramadol 50 mg Oral Tablet - take 1 tablet ORAL route every 8 hours as needed; 12 tablet; Refills: 0, sp3 Product Selection Permitted Signatures: Dispatcher [employer] Melina Julian, RN RN ll1 Riki Samayoa MD MD sp3 Elizabeth Stovall RN RN kj2
[2025-01-23 12:13] VITALS: TEMP 98; O2SAT 100
[2025-01-23 12:16] VITALS: BP 130/82
== END 2025-01-23 12:07 | disposition home or self-care (01) ==
LOC: ER 10:08
DX: S46.812A Strain of other muscles, fascia and tendons at shoulder and upper arm level, left arm, initial encounter (principal); S00.01XA Abrasion of scalp, initial encounter; S40.012A Contusion of left shoulder, initial encounter; S00.03XA Contusion of scalp, initial encounter; W22.8XXA Striking against or struck by other objects, initial encounter; F17.210 Nicotine dependence, cigarettes, uncomplicated
CPT/HCPCS: 70450; 72125; 96372; 99284

== ENCOUNTER 2025-03-01 19:42 | Emergency (ER) | payer SELFPAY ==
[2025-03-01] MEDS ORDERED: droPERidol 5 MG/2 ML VIAL ONE (20:59)
[2025-03-01] MEDS ORDERED: LIDOCAINE 1% 20 ML MDV ONE (20:59)
[2025-03-01] MEDS ORDERED: ONDANSETRON 4 MG/2 ML VIAL ONE (20:59)
[2025-03-01] MEDS ORDERED: MORPHINE 4 MG/ML SYR ONE (21:00)
[2025-03-01] MEDS ORDERED: KETOROLAC 30 MG/ML INJ ONE (21:00)
[2025-03-01] MEDS ORDERED: TDAP (DIPHTH,PERTUSS(ACELL),TET VAC) 0.5 ML VIAL IMVAC ONE (21:00)
[2025-03-01] MEDS ORDERED: NA CHLORIDE 0.9% 1,000 ML ONE (21:00)
--- NOTE | 2025-03-01 21:09 | RAD REPORT ---
EXAM: CT CHEST, ABDOMEN AND PELVIS WITHOUT CONTRAST CLINICAL INDICATION: Male, 44 years old. [facility] MAIN TRAUMA Bed Name: 14 TECHNIQUE: CT chest, abdomen and pelvis was performed, without IV contrast, as per department protoco l. Axial, sagittal and coronal reconstructions were obtained. One or more of the following dose reduction techniques were used: Automated exposure control, adjustment of the mA and/or kV according to the patient size, and/or iterative reconstruction. Unless otherwise specified, incidental findings do not require dedicated imaging follow-up. COMPARISON: 07/02/2022 FINDINGS: The lack of intravenous contrast limits the sensitivity of this exam for evaluation of solid visceral organs, vascular structures, and retroperitoneum. Chest: LOWER NECK/CHEST WALL: Visualized thyroid gland and soft tissues are normal. LUNGS AND AIRWAYS: Airways are clear. Postsurgical changes at the right upper lobe near the apex with adjacent mild linear scarring. No evidence of airspace or interstitial process. No nodules. PLEURA: No pleural effusion. No pneumothorax. Hemidiaphragms are normally positioned. MEDIASTINUM AND LYMPH NODES: No mediastinal mass or fluid collection. Normal size mediastinal, hilar, and axillary lymph nodes. THORACIC AORTA: Normal caliber and configuration. PULMONARY ARTERIES: Normal caliber. HEART: Unremarkable. Abdomen/Pelvis LIVER: Normal in size and contour. No focal lesion. GALLBLADDER/BILE DUCTS: No biliary ductal dilatation. PANCREAS: No mass, ductal dilation, or ulysses-pancreatic fluid. SPLEEN: Normal size. No focal lesion. ADRENALS: Normal; no mass. KIDNEYS AND URETERS: Normal size and contour. No hydronephrosis. GASTROINTESTINAL TRACT: Stomach is moderately distended. Small bowel has normal course and caliber. N o colonic wall thickening or pericolonic inflammatory changes. Status post appendectomy. PERITONEUM: No free fluid. LYMPH NODES: No lymphadenopathy. ABDOMINAL AORTA AND OTHER VESSELS: Normal caliber aorta and IVC. URINARY BLADDER: Normal contour. REPRODUCTIVE ORGANS: No pathologic process. MUSCULOSKELETAL: No acute or suspicious osseous abnormality. L5 pars interarticularis defects are see n, without significant subluxation. ADDITIONAL FINDINGS: None IMPRESSION: No acute or traumatic abnormalities in the chest, abdomen, or pelvis. Incidental findings as above, i ncluding moderate gastric distention.
[2025-03-01 21:10] LABS: Absolute Basophils 0.1 K/uL (0-0.5); Absolute Eosinophils 0.2 K/uL (0-0.5); Absolute Lymphocytes (CBC) 0.9 K/uL (0.7-4.9); Absolute Monocytes 0.6 K/uL (0.1-1.3); Absolute Neutrophil 7.7 K/uL (1.8-8.0); Basophils % 0.8 % (0-1.3); Eosinophils % 2.3 % (0-4.4); Hematocrit 44.4 % (39.6-49.0); Hemoglobin 15.7 g/dL (13.6-17.9); Lymphocytes % 9.8 % (15.3-44.8); MCH 33.3 pg (27.0-35.0); MCHC 35.3 g/dL (32.0-36.0); MCV 94.4 fL (80-100); MPV 7.5 fL (7.6-11.3); Monocytes % 5.8 % (3.3-12.3); Neutrophils % 81.3 % (41.7-73.7); Platelets 302 thou/uL (152-406); RBC Red Blood Cell Count 4.71 M/uL (4.33-5.43); Red Cell Distribution Width 14.1 % (12.1-15.2)
[2025-03-01 21:27] LABS: Albumin 3.5 g/dL (3.4-5.0); Bilirubin Total 0.3 mg/dL (0.2-1.0); Globulin 3.5 g/dL (2.3-3.5)
--- NOTE | 2025-03-01 21:38 | RAD REPORT ---
EXAM: CT brain without contrast HISTORY: TRAUMA COMPARISON: 01/23/2025 TECHNIQUE: Multiple contiguous axial images were obtained and a CT of the brain without contrast. Sag ittal and coronal reformats were performed. FINDINGS: No evidence of hydrocephalus, intracranial hemorrhage, or extra-axial fluid collection. The brain is normal in morphology. The calvarium is intact. The visualized paranasal sinuses and mastoid air cells are essentially clear . IMPRESSION: No evidence of acute intracranial abnormality. EXAM: CT of the cervical spine without contrast HISTORY: TRAUMA COMPARISON: None TECHNIQUE: Multiple contiguous axial images were obtained in a CT of the cervical spine without contr ast. Sagittal and coronal reformats were performed. FINDINGS: The vertebral bodies demonstrate normal height and alignment. No evidence of acute fracture or subluxation.. No degenerative changes are present. No prevertebral soft tissue swelling is seen. The posterior facets are well aligned. Normal alignment of the skull base with the cervical spine is seen. The lung apices are unremarkable. IMPRESSION: No evidence of acute osseous abnormality of the cervical spine.
--- NOTE | 2025-03-01 21:40 | RAD REPORT ---
EXAMINATION: XR Foot Right 3 View CLINICAL INDICATION: Male, 44 years old. [facility] MAIN right foot pain Bed Name: 14 TECHNIQUE: 3 view radiographs of the right foot were obtained. COMPARISON: No prior exam. FINDINGS: Partially visualized fractures of the distal tibia. Soft tissue swelling about the ankle. A ccessory ossicle along the lateral base of the first digit proximal phalanx, with corticated. No evidence of arthropathy or other focal bone lesion.. IMPRESSION: Partially visualized fractures of the distal tibia.
--- NOTE | 2025-03-01 21:41 | RAD REPORT ---
EXAMINATION: XR Ankle Right 3 View CLINICAL INDICATION: Male, 44 years old. [facility] MAIN PAIN TECHNIQUE: 3 view radiographs of the right ankle were obtained. COMPARISON: No prior exam. FINDINGS: Minimally displaced fractures at the base of the medial malleolus as well as an intra-artic ular fracture of the medial tibial plafond and. Deformity along the distal tibia just above the level of the syndesmosis, could relate to nonossifying fibroma, or sequelae of sclerosis of the inter osseous ligament in the setting of prior trauma. IMPRESSION: Minimally displaced intra-articular distal tibia fracture as well as fracture base of the medial mall eolus. Other chronic findings as above.
--- NOTE | 2025-03-01 23:58 | EDPHYS ---
Physician Documentation [facility] Name: Adrian Huffman Age: 44 yrs Sex: Male : 1980 Arrival Date: 03/01/2025 Time: 19:42 Bed 14 Private MD: ED Physician Sheldon Rivero HPI: 03/01 20:04 This 44 yrs old Male presents to ER via Wheelchair with complaints of Fall sp4 Injury, Leg Injury, Laceration To Hand. 03/02 01:47 44-year-old male who fell off the tree today causing moderate to severe pain to the sp4 right ankle. 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 Patient also had chainsaw cut to the left thumb causing moderate amount of bleeding. Denied loss of consciousness. Denied head injury.. . Historical: - Allergies: 03/01 19:53 NKA; cm10 - PMHx: 19:53 Pneumothorax; Ulcers; cm10 - PSHx: 19:53 Appendectomy; chest tube; cm10 - Immunization history:: Adult Immunizations up to date. - Infectious Disease History:: Denies. - Immunization history: Last tetanus immunization: unknown. - Social history:: Smoking status: Patient denies any tobacco usage or history of. - Family history:: not pertinent. ROS: 03/02 01:47 Constitutional: Negative for fever, chills, and weight loss, positive for moderate sp4 severe right ankle pain, positive for left thumb laceration and bleeding. All other systems are negative, Exam: 01:47 Constitutional: This is a well developed, well nourished patient who is awake, alert, sp4 patient is in moderate distress secondary to pain. Head/Face: Normocephalic, atraumatic. Eyes: Pupils equal round and reactive to light, extra-ocular motions intact. Lids and lashes normal. Conjunctiva and sclera are not injected. Cornea within normal limits. Periorbital areas with no swelling, redness, or edema. ENT: Nares patent. No nasal discharge, no septal abnormalities noted. Tympanic membranes are normal and external auditory canals are clear. Oropharynx with no redness, swelling, or masses, exudates, or evidence of obstruction, uvula midline. Mucous membranes moist. Neck: Trachea midline, no thyromegaly or masses palpated, and no cervical lymphadenopathy. Supple, full range of motion without nuchal rigidity, or vertebral point tenderness. Chest/axilla: Normal chest wall appearance and motion. Nontender with no deformity. No lesions are appreciated. Cardiovascular: Regular rate and rhythm with a normal S1 and S2. No gallops, murmurs, or rubs. Normal PMI, no JVD. No pulse deficits. Respiratory: Lungs have equal breath sounds bilaterally, clear to auscultation and percussion. No rales, rhonchi or wheezes noted. No increased work of breathing, no retractions or nasal flaring. Abdomen/GI: Soft, with normal bowel sounds. No distension or tympany. No guarding or rebound. No evidence of tenderness throughout. Back: No spinal tenderness. No costovertebral tenderness. Skin: Warm, dry with normal turgor. Normal color with no rashes, no lesions, and no evidence of cellulitis. Positive for left thumb laceration MS/ Extremity: Pulses equal, no cyanosis. Neurovascular intact. Positive moderate to severe pain and mild swelling right ankle. Positive left thumb laceration with pressure dressing controlling the bleeding Neuro: Awake and alert, GCS 15, oriented to person, place, time, and situation. Cranial nerves II-XII grossly intact. Motor strength 5/5 in all extremities. Sensory grossly intact. Psych: Awake, alert, with orientation to person, place and time. Behavior, mood, and affect are within normal limits Vital Signs: 03/01 19:49 BP 128 / 82; Pulse 114; Resp 15; Temp 98.9(O); Pulse Ox 96% on R/A; Pain 10/10; cm10 20:00 Weight 77.11 kg; kj2 21:19 BP 133 / 92; Pulse 103; Resp 20; Pulse Ox 96% ; kj2 22:20 BP 127 / 87; Pulse 89; Resp 20; Pulse Ox 97% ; kj2 23:34 BP 136 / 98; Pulse 82; Resp 20; Pulse Ox 98% on R/A; kj2 03/02 00:11 BP 140 / 89; Pulse 80; Resp 20; Temp 98; Pulse Ox 100% ; kj2 03/01 19:49 Pain Scale: Adult cm10 Lamont Coma Score: 03/01 19:58 Eye Response: spontaneous(4). Motor Response: obeys commands(6). Verbal Response: kj2 oriented(5). Total: 15. 03/02 01:47 Eye Response: spontaneous(4). Motor Response: obeys commands(6). Verbal Response: sp4 oriented(5). Total: 15. Trauma Score (Adult): 03/01 19:58 Eye Response: spontaneous(1); Verbal Response: oriented(1); Motor Response: obeys kj2 commands(2); Systolic BP: > 89 mm Hg(4); Respiratory Rate: 10 to 29 per min(4); Lamont Score: 15; Trauma Score: 12 Procedures: 23:54 Splinting: Splint applied to right calf, right Achilles and right heel using Ortho 3D sp4 boot, Ortho boot up to the left knee . applied by myself. Examined by me, post splint application: neurovascular intact, 2+ distal pulses palpable, brisk capillary refill noted, Patient tolerated well. Laceration: 23:53 Wound Repair of 3cm ( 1.2in ) Left thumb digital artery cut on the ulnar side of the sp4 thumb laceration to dorsal aspect of proximal phalanx of left thumb. Irregularly shaped.. Arterial bleeding noted.. Distal neuro/vascular/tendon intact. Anesthesia: Digital block administered with 10 mls of 1% lidocaine. Wound prep: Moderate cleansing by me, Copious irrigation. Skin closed with 6 4-0 Silk using vertical mattress sutures and sterile technique. Dressed with 4x4's, Kerlix, non-adherent dressing. Patient tolerated well. MDM: 20:07 Medical Screening Exam initiated sp4 23:54 Differential diagnosis: abrasion, closed head injury, contusion, fracture, laceration, sp4 multiple trauma, sprain, strain. Data reviewed: vital signs, nurses notes, lab test result(s), radiologic studies, CT scan, plain films. Consideration of Admission/Observation Escalation of care including admission/observation considered. 03/02 01:49 ED course: EXAMINATION: XR Foot Right 3 View CLINICAL INDICATION: Male, 44 years old. sp4 [facility] MA[facility] right foot pain Bed Name: 14 TECHNIQUE: 3 view radiographs of the right foot were obtained. COMPARISON: No prior exam. FINDINGS: Partially visualized fractures of the distal tibia. Soft tissue swelling about the ankle. Accessory ossicle along the lateral base of the first digit proximal phalanx, with corticated. No evidence of arthropathy or other focal bone lesion.. IMPRESSION: Partially visualized fractures of the distal tibia. ED course: CLINICAL INDICATION: Male, 44 years old. [facility] PAIN TECHNIQUE: 3 view radiographs of the right ankle were obtained. COMPARISON: No prior exam. FINDINGS: Minimally displaced fractures at the base of the medial malleolus as well as an intraarticular fracture of the medial tibial plafond and. Deformity along the distal tibia just above the level of the syndesmosis, could relate to nonossifying fibroma, or sequelae of sclerosis of the interosseous ligament in the setting of prior trauma. IMPRESSION: Minimally displaced intra-articular distal tibia fracture as well as fracture base of the medial malleolus. Other chronic findings as above.. ED course: CT chest , abdomen, pelvis - PERITONEUM: No free fluid. LYMPH NODES: No lymphadenopathy. ABDOMINAL AORTA AND OTHER VESSELS: Normal caliber aorta and IVC. URINARYBLADDER: Normal contour. REPRODUCTIVE ORGANS: No pathologic process. MUSCULOSKELETAL: No acute or suspicious osseous abnormality. 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 ADDITIONAL FINDINGS: None IMPRESSION: No acute or traumatic abnormalities in the chest, abdomen, or pelvis. Incidental findings as above, including moderate gastric distention.. ED course: EXAM: CT brain without contrast HISTORY: TRAUMA COMPARISON: 01/23/2025 TECHNIQUE: Multiple contiguous axial images were obtained and a CT of the brain without contrast. Sagittal and coronal reformats were performed. FINDINGS: No evidence of hydrocephalus, intracranial hemorrhage, or extra-axial fluid collection. The brain is normal in morphology. The calvarium is intact. The visualized paranasal sinuses and mastoid air cells are essentially clear. IMPRESSION: No evidence of acute intracranial abnormality. . ED course: CT C spine - The posterior facets are well aligned. Normal alignment of the skull base with the cervical spine is seen. The lung apices are unremarkable. IMPRESSION: No evidence of acute osseous abnormality of the cervical spine.. 03/01 20:51 Order name: CBC with Diff; Complete Time: 21:45 sp4 03/01 20:51 Order name: CMP; Complete Time: 21:45 sp4 03/01 20:51 Order name: Lipase; Complete Time: 21:45 sp4 03/01 20:51 Order name: Urinalysis w/ reflexes; Complete Time: 01:41 sp4 03/01 19:50 Order name: CT Chest Abdomen Pelvis W/O Contrast; Complete Time: 21:45 sb4 03/01 19:50 Order name: CT Head C Spine; Complete Time: 21:45 sb4 03/01 20:22 Order name: Foot Right 3 View XRAY; Complete Time: 21:45 sp4 03/01 20:37 Order name: Ankle Right 3 View; Complete Time: 21:45 EDMS 03/01 20:51 Order name: IV Saline Lock; Complete Time: 20:51 sp4 03/01 20:51 Order name: Labs collected and sent; Complete Time: 21:54 sp4 03/01 20:52 Order name: Dressing - Wound; Complete Time: 23:34 sp4 03/01 20:52 Order name: Gloves, Sterile; Complete Time: 21:17 sp4 03/01 20:52 Order name: Setup Suture Tray; Complete Time: 21:17 sp4 03/01 22:31 Order name: Orthopedic shoe: Long Ortho boot to the right ankle; Complete Time: 22:33 sp4 03/01 22:31 Order name: Crutches; Complete Time: 23:34 sp4 Administered Medications: 03/01 21:17 Drug: TORadol - Ketorolac IVP 15 mg IVP once Route: IVP; Site: left antecubital; kj2 03/02 00:18 Follow up: Response: No adverse reaction 03/01 21:17 Drug: NS 0.9% IV 1000 ml IV at 1 bolus Per protocol; to be given as a bolus over 60 kj2 minutes Route: IV; Rate: 1 bolus; Site: left antecubital; 03/02 00:18 Follow up: IV Status: Completed infusion; IV Intake: 1000ml 03/01 21:17 Drug: Droperidol IVP 2.5 mg IVP once Route: IVP; Site: left antecubital; kj2 23:02 Follow up: Response: No adverse reaction kj2 21:17 Drug: Boostrix Tdap IM 0.5 ml IM once; as a single dose Route: IM; Site: right deltoid; kj2 23:01 Follow up: Response: No adverse reaction kj2 21:22 Drug: morphine IVP or IV 8 mg IVP once over 4 mins Route: IVP; Infused Over: 4 mins; kj2 Site: left antecubital; 03/02 00:19 Follow up: Response: No adverse reaction kj2 03/01 21:22 Drug: Ondansetron IVP 8 mg IVP once; over 2 minutes Route: IVP; Site: left antecubital; kj2 03/02 00:19 Follow up: Response: No adverse reaction kj2 03/01 21:54 Drug: Lidocaine Infiltration (1 %) 20 ml 20 ml Infiltration once; to bedside {Note: kj2 administered by } Volume: 20 ml; Route: Infiltration; 03/02 00:35 Drug: HYDROcodone-acetaminophen PO 5 mg-325 mg 2 tabs PO once Route: PO; rg5 00:47 Follow up: Response: No adverse reaction; Pain is decreased rg5 00:35 Drug: Ketorolac IVP 15 mg IVP once Route: IVP; Site: left antecubital; rg5 00:47 Follow up: Response: No adverse reaction; Pain is decreased rg5 00:36 Drug: Trimethoprim-Sulfamethoxazole PO (160 mg-800 mg (DS) 1 tablet PO once Route: PO; rg5 00:47 Follow up: Response: No adverse reaction rg5 00:36 Drug: ceFAZolin IVPB 1 grams 50 ml IVPB once over 30 mins Volume: 50 ml; Route: IVPB; rg5 Infused Over: 30 mins; Site: left antecubital; 00:47 Follow up: IV Status: Completed infusion; IV Intake: 50ml rg5 Disposition Summary: 03/01/25 23:58 Discharge Ordered Notes: Please see Orthopedist in 7 to 10 days Location: Home sp4 Problem: new sp4 Symptoms: have improved sp4 Condition: Stable sp4 Diagnosis - Laceration without foreign body of left thumb without damage to nail, initial sp4 encounter - Right distal tibia medial malleolus fracture, right ankle sprain, left thumb sp4 complex laceration with left thumb digital arterial cut, acute fall off the tree Followup: sp4 - With: Mo Soliman MD - When: 7 - 10 days - Reason: Recheck today's complaints Discharge Instructions: - Discharge Summary Sheet sp4 - Laceration Care, Adult sp4 - Ankle Fracture, [id number] sp4 Forms: - Patient Portal Instructions sp4 Prescriptions: - Ibuprofen 800 mg Oral Tablet - take 1 tablet ORAL route every 8 hours As needed take with food; 30 tablet; sp4 Refills: 0, Product Selection Permitted - Tramadol 50 mg Oral tablet - take 1 tablet ORAL route every 8 hours as needed; 20 tablet; Refills: 0, sp4 Product Selection Permitted - Bactrim DS 800-160 mg Oral Tablet - take 1 tablet ORAL route every 12 hours for 10 days; 20 tablet; Refills: 0, sp4 Product Selection Permitted - methocarbamol 750 mg Oral tablet - take 2 tablets ORAL route every 8 hours for 3 days PRN pain; 60 tablet; sp4 Refills: 0, Product Selection Permitted Signatures: Dispatcher [employer] EDMS Sheldon Rivero MD MD sp4 Senia Leach RN RN cm10 Jose A Quarles RN RN rg5 Elizabeth Stovall RN RN kj2 Corrections: (The following items were deleted from the chart) 03/01 20:51 20:51 CBC+H.LAB.BRZ ordered. EDMS EDMS 20:51 20:51 COMPREHENSIVE METABOLIC PANEL+C.LAB.BRZ ordered. EDMS EDMS 20:51 20:51 LIPASE+C.LAB.BRZ ordered. EDMS EDMS 20:51 20:51 Urinalysis+U.LAB.BRZ ordered. EDMS EDMS
--- NOTE | 2025-03-01 23:58 | ER ---
Nurse's Notes [facility] Name: Adrian Huffman Age: 44 yrs Sex: Male : 1980 Arrival Date: 03/01/2025 Time: 19:42 Bed 14 Private MD: Diagnosis: Laceration without foreign body of left thumb without damage to nail, initial encounter;Right distal tibia medial malleolus fracture, right ankle sprain, left thumb complex laceration with left thumb digital arterial cut, acute fall off the tree Presentation: 03/01 19:49 Chief complaint: Patient states: Fell off a tree approximately 15 feet. No LOC. Pt cm10 complaining of pain to right ankle and laceration to left hand with chainsaw. dressing noted to left hand. pt reports drinking 2 beers today. Coronavirus screen: Client denies travel out of the [place] in the last 14 days. Ebola Screen: Patient denies travel to an Ebola-affected area in the 21 days before illness onset. Initial Sepsis Screen: Does the patient meet any 2 criteria? HR > 90 bpm. Does the patient have a suspected source of infection? No. Patient's initial sepsis screen is negative. Risk Assessment: Do you want to hurt yourself or someone else? Patient reports no desire to harm self or others. Onset of symptoms was March 01, 2025. 19:49 Method Of Arrival: Wheelchair cm10 19:49 Acuity: KELLY 2 cm10 20:02 Care prior to arrival: None. Mechanism of Injury: Fall approximately 15 feet. Trauma kj2 event details: Injury occurred: March 01, 2025. Trauma Activation: Alert Physician: ED Physician; Name: ; Notified At: ; Arrived At: Physician: General Surgeon; Name: ; Notified At: ; Arrived At: Physician: Radiology; Name: ; Notified At: ; Arrived At: Physician: Respiratory; Name: ; Notified At: ; Arrived At: Physician: Lab; Name: ; Notified At: ; Arrived At: Historical: - Allergies: 19:53 NKA; cm10 - PMHx: 19:53 Pneumothorax; Ulcers; cm10 - PSHx: 19:53 Appendectomy; chest tube; cm10 - Immunization history:: Adult Immunizations up to date. - Infectious Disease History:: Denies. - Immunization history: Last tetanus immunization: unknown. - Social history:: Smoking status: Patient denies any tobacco usage or history of. - Family history:: not pertinent. Screenin:56 [facility] ED Fall Risk Assessment (Adult) History of falling in the last 3 months, kj2 including since admission Yes- single mechanical fall (1 pt) Confusion or Disorientation No (0 pts) Intoxicated or Sedated No (0 pts) Impaired Gait Yes (1 pt) Mobility Assist Device Used Yes (1 pt) Altered Elimination No (0 pt) Score/Fall Risk Level 3 or more points = High Risk Maintained a safe environment, Hourly rounding (assess needs \T\ fall precautionary measures) done. Abuse screen: Denies threats or abuse. Denies injuries from another. Nutritional screening: No deficits noted. Tuberculosis screening: No symptoms or risk factors identified. Primary Survey: 19:53 NO uncontrolled hemorrhage observed. A: The client is awake and alert. The airway is cm10 patent. Breathing/Chest: Spontaneous respiratory effort, equal unlabored respirations, breath sounds clear bilaterally, regular pattern, symmetrical chest rise and fall. Circulation: No external hemorrhage present. Regular and strong central pulse, skin warm/dry/normal color. Disability Pupils are equal, round, reactive to light and accommodation. Client is alert. 20:00 Exposure/Environment: All clothing and personal items were removed. Forensic evidence kj2 collection is not deemed to be indicated at this time. Items placed in patient belonging bag. Reassessment Alertness and Airway: Awake and alert. The airway is patent. Breathing: Spontaneous respiratory effort, equal unlabored respirations, breath sounds clear bilaterally, regular pattern with symmetrical chest rise and fall. Respiratory effort Unlabored Circulation: No external hemorrhage noted. Regular and strong central pulse, skin warm/dry/normal color. Assessment: 19:54 General: Appears uncomfortable, Behavior is cooperative. Pain: Complains of pain in kj2 left hand, right leg Pain currently is 9 out of 10 on a pain scale. Neuro: Level of Consciousness is awake, alert, obeys commands, Oriented to person, place, time, situation. Cardiovascular: Patient's skin is warm and dry. Respiratory: Airway is patent Respiratory effort is even, unlabored. GI: No signs and/or symptoms were reported involving the gastrointestinal system. : No signs and/or symptoms were reported regarding the genitourinary system. Derm: laceration on left hand. 21:19 Reassessment: No changes from previously documented assessment. Patient is alert, kj2 oriented x 3, equal unlabored respirations, skin warm/dry/pink. 22:20 Reassessment: No changes from previously documented assessment. Patient is alert, kj2 oriented x 3, equal unlabored respirations, skin warm/dry/pink. 23:34 Reassessment: Patient appears in no apparent distress at this time. Patient and/or kj2 family updated on plan of care and expected duration. Pain level reassessed. Patient is alert, oriented x 3, equal unlabored respirations, skin warm/dry/pink. 03/02 00:11 Reassessment: Patient appears in no apparent distress at this time. Patient and/or kj2 family updated on plan of care and expected duration. Pain level reassessed. Patient is alert, oriented x 3, equal unlabored respirations, skin warm/dry/pink. Vital Signs: 03/01 19:49 BP 128 / 82; Pulse 114; Resp 15; Temp 98.9(O); Pulse Ox 96% on R/A; Pain 10/10; cm10 20:00 Weight 77.11 kg; kj2 21:19 BP 133 / 92; Pulse 103; Resp 20; Pulse Ox 96% ; kj2 22:20 BP 127 / 87; Pulse 89; Resp 20; Pulse Ox 97% ; kj2 23:34 BP 136 / 98; Pulse 82; Resp 20; Pulse Ox 98% on R/A; kj2 03/02 00:11 BP 140 / 89; Pulse 80; Resp 20; Temp 98; Pulse Ox 100% ; kj2 03/01 19:49 Pain Scale: Adult cm10 Lamont Coma Score: 03/01 19:58 Eye Response: spontaneous(4). Motor Response: obeys commands(6). Verbal Response: kj2 oriented(5). Total: 15. 03/02 01:47 Eye Response: spontaneous(4). Motor Response: obeys commands(6). Verbal Response: sp4 oriented(5). Total: 15. Trauma Score (Adult): 03/01 19:58 Eye Response: spontaneous(1); Verbal Response: oriented(1); Motor Response: obeys kj2 commands(2); Systolic BP: > 89 mm Hg(4); Respiratory Rate: 10 to 29 per min(4); [place] Score: 15; Trauma Score: 12 ED Course: 19:44 Patient arrived in ED. jj6 19:53 Elizabeth Stovall, RN is Primary Nurse. kj2 19:53 Triage completed. cm10 19:54 Arm band placed on right wrist. Patient placed in an exam room, on a stretcher. cm10 19:56 Inserted saline lock: 20 gauge in left antecubital area, using aseptic technique. vk Flushed with 10 mL NS. 20:02 Patient has correct armband on for positive identification. Bed in low position. Call kj2 light in reach. Provided Education on: call light. 20:04 Sheldon Rivero MD is Attending Physician. sp4 20:14 CT Chest Abdomen Pelvis W/O Contrast In Process Unspecified. EDMS 20:14 CT Head C Spine In Process Unspecified. EDMS 20:42 Foot Right 3 View XRAY In Process Unspecified. EDMS 20:42 Ankle Right 3 View In Process Unspecified. EDMS 22:47 Ortho shoe applied to right foot. oe 23:55 Mo Soliman MD is Referral Physician. sp4 03/02 00:14 Assist provider with fracture care. kj2 00:15 Patient maintains SpO2 saturation greater than 95% on room air. Thermoregulation: none kj2 needed. 00:17 Report given to KEYANA Naranjo. kj2 00:48 IV discontinued, bleeding controlled, No redness/swelling at site. Pressure dressing rg5 applied. Administered Medications: 03/01 21:17 Drug: TORadol - Ketorolac IVP 15 mg IVP once Route: IVP; Site: left antecubital; kj2 03/02 00:18 Follow up: Response: No adverse reaction kj2 03/01 21:17 Drug: NS 0.9% IV 1000 ml IV at 1 bolus Per protocol; to be given as a bolus over 60 kj2 minutes Route: IV; Rate: 1 bolus; Site: left antecubital; 03/02 00:18 Follow up: IV Status: Completed infusion; IV Intake: 1000ml kj2 03/01 21:17 Drug: Droperidol IVP 2.5 mg IVP once Route: IVP; Site: left antecubital; kj2 23:02 Follow up: Response: No adverse reaction kj2 21:17 Drug: Boostrix Tdap IM 0.5 ml IM once; as a single dose Route: IM; Site: right deltoid; kj2 23:01 Follow up: Response: No adverse reaction kj2 21:22 Drug: morphine IVP or IV 8 mg IVP once over 4 mins Route: IVP; Infused Over: 4 mins; kj2 Site: left antecubital; 03/02 00:19 Follow up: Response: No adverse reaction kj2 03/01 21:22 Drug: Ondansetron IVP 8 mg IVP once; over 2 minutes Route: IVP; Site: left antecubital; kj2 03/02 00:19 Follow up: Response: No adverse reaction kj2 03/01 21:54 Drug: Lidocaine Infiltration (1 %) 20 ml 20 ml Infiltration once; to bedside {Note: kj2 administered by MD.} Volume: 20 ml; Route: Infiltration; 03/02 00:35 Drug: HYDROcodone-acetaminophen PO 5 mg-325 mg 2 tabs PO once Route: PO; rg5 00:47 Follow up: Response: No adverse reaction; Pain is decreased rg5 00:35 Drug: Ketorolac IVP 15 mg IVP once Route: IVP; Site: left antecubital; rg5 00:47 Follow up: Response: No adverse reaction; Pain is decreased rg5 00:36 Drug: Trimethoprim-Sulfamethoxazole PO (160 mg-800 mg (DS) 1 tablet PO once Route: PO; rg5 00:47 Follow up: Response: No adverse reaction rg5 00:36 Drug: ceFAZolin IVPB 1 grams 50 ml IVPB once over 30 mins Volume: 50 ml; Route: IVPB; rg5 Infused Over: 30 mins; Site: left antecubital; 00:47 Follow up: IV Status: Completed infusion; IV Intake: 50ml rg5 Medication: 00:14 Vaccine Information Statement (VIS) provided today. Questions and/or concerns kj2 addressed. VIS edition date: June 09, 2021. Intake: 00:16 PO: 120ml (Juice); Total: 120ml. kj2 00:18 IV: 1000ml; Total: 1120ml. kj2 00:47 IV: 50ml; Total: 1170ml. rg5 Outcome: 03/01 20:04 Patient's length of stay was not longer than 2 hours. kj2 23:58 Discharge ordered by MD. [email or web address] 03/02 00:48 Discharged to home via wheelchair, rg5 Condition: stable Discharge instructions given to patient, Instructed on discharge instructions, follow up and referral plans. Demonstrated understanding of instructions, follow-up care, medications, Prescriptions given X 4, 00:49 Patient left the ED. rg5 Signatures: Dispatcher [employer] EDMS Grant Kwong Jennifer [email or web address] Sheldon Rivero MD MD sp4 Senia Leach, RN RN cm10 Tori Frost Rommel, RN RN rg5 Elizabeth Stovall, RN RN kj2
[2025-03-02] MEDS ORDERED: KETOROLAC 30 MG/ML INJ ONE (00:23)
[2025-03-02] MEDS ORDERED: SMZ./TMP. 800/160 MG TABLET ONE (00:23)
[2025-03-02] MEDS ORDERED: CEFAZOLIN SODIUM 1 GM/VIAL ONE (00:23)
[2025-03-02] MEDS ORDERED: HYDROCODONE/APAP 5/325 MG TAB ONE (00:24)
[2025-03-02 00:39] LABS: Specific Gravity 1.023 (1.005-1.030); Urine Bilirubin NEGATIVE (Negative); Urine Blood Negative (Negative); Urine Clarity Clear (Clear); Urine Color Light-Yellow (Yellow); Urine Glucose TRACE (Negative); Urine Ketones NEGATIVE (Negative); Urine Microscopic Reflex YN NO UMIC; Urine Nitrite NEGATIVE (Negative); Urine Protein NEGATIVE (Negative); Urine Urobilinogen Normal (Normal); Urine pH 6.5 (5.0-7.0)
[2025-03-02 23:46] VITALS: BP 140/89; TEMP 98; O2SAT 100
== END 2025-03-02 00:49 | disposition home or self-care (01) ==
LOC: ER 19:42
DX: S61.012A Laceration without foreign body of left thumb without damage to nail, initial encounter (principal); S82.51XA Displaced fracture of medial malleolus of right tibia, initial encounter for closed fracture; S93.401A Sprain of unspecified ligament of right ankle, initial encounter; W14.XXXA Fall from tree, initial encounter
CPT/HCPCS: 36415; 70450; 71250; 72125; 74176; 80053; 81003; 83690; 85025; 90715; J0690; J1790; J2003; J2405; J7030